=== PATIENT | female | born 1950 | race Caucasian/White ===

== ENCOUNTER 2021-12-14 18:02 | Inpatient (IN) | payer OTHER ==
[~2021-12-14] VITALS: Ht 167.6 cm; Wt 97.5 kg
--- NOTE | 2021-12-14 18:02 | NUR ---
PT BIBRA39 FRM B&C C/O WORSENING SOB X 2 WEEKS. PT IS AAOX4, NOT IN RESPIRATORY DISTRESS, HOOKED TO NUMERICAL CONTROL MACHINE OPERATOR, KEPT RESTED AND COMFORTABLE. WILL CONTINUE TO MONITOR.
--- NOTE | 2021-12-14 18:24 | NUR ---
PT SEEN AND EXAMINED BY .
[2021-12-14] MEDS ORDERED: DILTIAZEM HCL 25 MG IV ONE (18:47)
--- NOTE | 2021-12-14 18:50 | NUR ---
IV LINE ESTABLISHED BLOOD DRAWN AND SENT TO LAB.
[2021-12-14] MEDS ORDERED: IV NS 0.9% 500 ML IV ONE (19:00)
[2021-12-14] MEDS ORDERED: DILTIAZEM HCL 50 MG IV IV ONE (19:00)
--- NOTE | 2021-12-14 19:07 | NUR ---
COVID SPECIMEN COLLECTED AND SENT TO LAB.
[2021-12-14 19:13] LABS: CALCIUM, SERUM 8.4 mg/dL (8.5-10.1); CARBON DIOXIDE 31 mmol/L (21-32); CHLORIDE 104 mmol/L (98-107); CREATININE 1.1 mg/dL (0.6-1.3); GLUCOSE 97 mg/dL (74-106); POTASSIUM 4.2 mmol/L (3.5-5.1); SODIUM SERUM 139 mmol/L (136-145); UREA NITROGEN, BLOOD 16 mg/dL (7-18)
--- NOTE | 2021-12-14 19:17 | NUR ---
CALLED PHARMACY FOR KIMBERLEE FAITH
[2021-12-14 19:20] LABS: ALANINE AMINOTRANSFERASE 12 U/L (12-78); ALKALINE PHOSPHATASE 98 U/L (46-116); ASPARTATE AMINOTRANSFERASE 6 U/L (15-37); BILIRUBIN,DIRECT 0.1 mg/dL (0.0-0.2); BILIRUBIN,TOTAL 0.3 mg/dL (0.2-1.0); TOTAL PROTEIN, SERUM 6.4 g/dL (6.4-8.2)
[2021-12-14] MEDS ORDERED: DILTIAZEM HCL IV 125 MG in IV NS 0.9% 100 ML IV PRN ×2 (19:30→22:00)
--- NOTE | 2021-12-14 20:08 | NUR ---
CALLED [facility] [phone] ASKING FOR MD NAME THAT OKAYED PT STAYING HERE.
--- NOTE | 2021-12-14 20:11 | NUR ---
PT RESTING COMFORTABLY IN BED, ELEVATED HR NOTED AT 117, ON CARDIZEM DRIP 7, INCREASED TO 10 PER PROTOCAL. WILL CONTINUE TO MONITOR HR. PT STATES 0/10 PAIN AT THIS TIME.
--- NOTE | 2021-12-14 20:11 | NUR ---
RECEIVED REPORT FROM JACLYN VELÁZQUEZ FOR JAYJAY
--- NOTE | 2021-12-14 20:13 | NUR ---
[facility] CALLED SURVEILLANCE INSPECTOR PAGED.
[2021-12-14 20:19] LABS: BASOPHILS % (AUTO) 0.5 % (0.0-2.0); EOSINOPHILS % (AUTO) 1.8 % (0.0-6.0); HEMATOCRIT 35 % (33-45); HEMOGLOBIN 11.2 g/dL (11.5-14.8); LYMPHOCYTES # (AUTO) 1.3 K/uL (0.8-4.8); LYMPHOCYTES % (AUTO) 18.8 % (20.0-44.0); MEAN CORPUSCULAR HGB CONC 32 g/dl (31.0-36.0); MEAN CORPUSCULAR VOLUME 94 fL (82-100); MONOCYTES # (AUTO) 0.5 K/uL (0.1-1.30); MONOCYTES % (AUTO) 7.1 % (2.0-12.0); NEUTROPHILS % (AUTO) 71.8 % (43.0-81.0); PLATELET COUNT (AUTO) 263 K/uL (150-450); RED BLOOD CELL COUNT(AUTO) 3.75 MIL/uL (4.0-5.2)
--- NOTE | 2021-12-14 20:22 | NUR ---
FAXED CLINICALS TO [facility] [phone]
--- NOTE | 2021-12-14 20:25 | NUR ---
OPTION 2 DARYN ASKING FOR NAME OF MD IS ANI THAT GAVE AUTH FOR PT TO STAY.
[2021-12-14] MEDS ORDERED: ACETAMINOPHEN 325 MG TABLET PO PRN (20:30)
--- NOTE | 2021-12-14 20:33 | NUR ---
BEDPAN PROVIDED TO PT
--- NOTE | 2021-12-14 20:49 | NUR ---
ULTRASOUND AT BEDSIDE
--- NOTE | 2021-12-14 21:00 | NUR ---
HR NOTED AT 129, INCREASED CARDIZEM TO 15. WILL CONTINUE TO MONITOR
--- NOTE | 2021-12-14 21:10 | NUR ---
room 106
--- NOTE | 2021-12-14 21:11 | NUR ---
ROOM 106
--- NOTE | 2021-12-14 21:23 | NUR ---
35 EF NOTED ON ECHOCARDIOGRAM, WILL NOTIFY HOSPITALIST
--- NOTE | 2021-12-14 21:26 | NUR ---
CALL MADE TO [employer] TO [address] DR ORTIZ
--- NOTE | 2021-12-14 21:28 | NUR ---
HORACIO ORTIZ NP WAS NOTIFIED THAT THE PT'S EJECTION FRACTION RATE IS 35%.
--- NOTE | 2021-12-14 21:55 | NUR ---
ROOM ASSIGNMENT 256 ICU
[2021-12-14] MEDS ORDERED: APIXABAN 5 MG TABLET ONE (22:11)
--- NOTE | 2021-12-14 22:17 | NUR ---
SECOND IV LINE ESTABLISHED , LAC 20G
[2021-12-14] MEDS: APIXABAN 5 MG TABLET PO SCH (22:22)
--- NOTE | 2021-12-14 22:28 | NUR ---
REPORT GIVEN TO GIGI VELÁZQUEZ FOR JAYJAY
[2021-12-14 23:52] VITALS: BP 111/65
[2021-12-14] MEDS ORDERED: METO100T14 PO (23:57)
[2021-12-14] MEDS ORDERED: ALBU18HF2 INH (23:57)
[2021-12-14] MEDS ORDERED: METF-440 PO (23:57)
[2021-12-14] MEDS ORDERED: METH500T6 PO (23:57)
[2021-12-14] MEDS ORDERED: FURO20TA4 PO (23:57)
[2021-12-14] MEDS ORDERED: MOME13HF2 INH (23:57)
[2021-12-14] MEDS ORDERED: LEVO75TA7 PO (23:57)
[2021-12-14] MEDS ORDERED: ARIP5TAB10 PO (23:57)
[2021-12-14] MEDS ORDERED: BUPR100T6 PO (23:57)
[2021-12-14] MEDS ORDERED: ATOR40TA PO (23:57)
[2021-12-14] MEDS ORDERED: TRAZ-257 PO (23:57)
[2021-12-14] MEDS ORDERED: ALPR0.25 PO (23:57)
[2021-12-14] MEDS ORDERED: AMLO2.5T2 PO (23:57)
[2021-12-14] MEDS ORDERED: FLUT16SP BNOSTRILS (23:57)
[2021-12-14] MEDS ORDERED: HYDR-3976 GT (23:57)
[2021-12-14] MEDS ORDERED: SPIR25TA PO (23:57)
[2021-12-14] MEDS ORDERED: BUSP5TAB3 PO (23:57)
[2021-12-14] MEDS ORDERED: baby aspirin PO (23:57)
[2021-12-14] MEDS ORDERED: GLIP2.5T16 PO (23:57)
[2021-12-14] MEDS ORDERED: GABA-532 PO (23:57)
[2021-12-14] MEDS ORDERED: DULO30CA2 PO (23:57)
[2021-12-14] MEDS ORDERED: DIGO125T PO (23:57)
[2021-12-15] VITALS (41 sets, daily range): BP systolic 48–142; BP diastolic 32–106
--- NOTE | 2021-12-15 | NUR ---
FORESTRY FACULTY MEMBER, ADMISSION RECEIVED FROM ER VIA LISA, PT AWAKE, ALERT FOLLOW COMMANDS. TOOTH CUTTER SPUR SHOWING A FIB. OXYGEN 2L VIA NASAL CANNULA, SAT 98%. NO ACUTE DISTRESS NOTED. IV RT AND LT HAND 20G. CARDIZEM 10MG/H.WILL CONTINUE TO MONITOR
[2021-12-15] MEDS ORDERED: APIX5TAB PO (02:46)
[2021-12-15] MEDS ORDERED: HYDROCODONE/APAP 7.5/325MG 1 EACH TABLET PO PRN (03:00)
[2021-12-15] MEDS ORDERED: ALBUTEROL FS 2.5 MG/3 ML VIAL.NEB NEB PRN (03:00)
[2021-12-15] MEDS ORDERED: METHOCARBAMOL (500MG) 500 MG TABLET PO PRN (03:00)
[2021-12-15] MEDS ORDERED: ALPRAZOLAM 0.25 MG TABLET PO PRN (03:00)
[2021-12-15] MEDS ORDERED: ALBUTEROL SULFATE 8 GM HFA.AER.AD IH PRN (03:00)
[2021-12-15] MEDS ORDERED: TRAZODONE 50 MG TABLET PO PRN (03:00)
--- NOTE | 2021-12-15 04:15 | NUR ---
multicut line operator. am care given. remaining same oxygen tolerated well. sat 98%. no acute distress noted, equipment monitor phototypesetting showing a fib. hob elevated, iv rt hand. cardizem 15mg /h
[2021-12-15 05:11] LABS: BASOPHILS # (AUTO) 0.1 K/uL (0.0-0.2); BASOPHILS % (AUTO) 0.9 % (0.0-2.0); EOSINOPHILS % (AUTO) 2.7 % (0.0-6.0); HEMATOCRIT 35 % (33-45); HEMOGLOBIN 11.1 g/dL (11.5-14.8); LYMPHOCYTES # (AUTO) 1.4 K/uL (0.8-4.8); LYMPHOCYTES % (AUTO) 17.2 % (20.0-44.0); MEAN CORPUSCULAR HGB CONC 32 g/dl (31.0-36.0); MEAN CORPUSCULAR VOLUME 93 fL (82-100); MONOCYTES # (AUTO) 0.6 K/uL (0.1-1.30); MONOCYTES % (AUTO) 7.8 % (2.0-12.0); NEUTROPHILS # (AUTO) 5.6 K/uL (1.8-8.9); NEUTROPHILS % (AUTO) 71.4 % (43.0-81.0); PLATELET COUNT (AUTO) 258 K/uL (150-450); WHITE BLOOD COUNT (AUTO) 7.9 K/uL (4.3-11.0)
[2021-12-15] MEDS ORDERED: METO200T49 PO (05:12)
[2021-12-15] MEDS ORDERED: NORCO PO (05:12)
[2021-12-15 05:29] LABS: CALCIUM, SERUM 8.2 mg/dL (8.5-10.1); CREATININE 1.1 mg/dL (0.6-1.3); PHOSPHORUS 4.1 mg/dL (2.5-4.9); POTASSIUM 3.9 mmol/L (3.5-5.1)
[2021-12-15] MEDS ORDERED: FUROSEMIDE 40 MG/4 ML VIAL IV ONE (05:30)
[2021-12-15] MEDS ORDERED: DEXTROSE 50%-WATER 50 ML DISP.SYRIN IV PRN (05:30)
[2021-12-15] MEDS ORDERED: AMIODARONE 150 MG in IV D5W 100 ML IV ONE (06:00)
[2021-12-15] MEDS ORDERED: AMIODARONE 150 MG/3 ML VIAL IV ONE ×2 (06:19→06:20)
--- NOTE | 2021-12-15 06:28 | NUR ---
GOLF CADDY, KIMBERLEE D/C BY HORACIO MILIAN , AND SYLVIA MATHUR
[2021-12-15] MEDS: AMIODARONE 450 MG in IV D5W 241 ML IV PRN ×2 (06:31→18:27)
[2021-12-15] MEDS: LEVOTHYROXINE SODIUM 75 MCG TABLET PO SCH (07:32)
[2021-12-15] MEDS: BLOOD SUGAR DIAGNOSTIC 1 EACH STRIP IN SCH ×4 (07:59→21:08)
--- NOTE | 2021-12-15 08:00 | NUR ---
RN NOTES RECEIVED PATIENT IN THE BED A/O X3/4 ON O2-2LNC, BS-164 MG/DL, TOLERATED BREAKFAST 75 %, DUE MEDICATION ADMINISTERED. HR 121 A-FIB ON BEDSIDE MONITOR , WAS COMPLAINING OF PAIN UPPER SHOULDERS, ANXIOUS. INFUSING AMIODARONE DRIP 1MG/ML USING BEDSIDE COMMODE, CALL LIGHT WITHIN TO REACH, WILL FOLLOW UP.
[2021-12-15] MEDS: APIXABAN 5 MG TABLET PO SCH ×2 (08:45→17:41)
[2021-12-15] MEDS: buPROPion SR 100 MG TABLET.ER PO SCH ×2 (08:46→17:41)
[2021-12-15] MEDS: SPIRONOLACTONE 25 MG TABLET PO SCH (08:46)
[2021-12-15] MEDS: GABAPENTIN 100 MG CAPSULE PO SCH ×2 (08:46→17:40)
[2021-12-15] MEDS: busPIRone 5 MG TABLET PO SCH (08:46)
[2021-12-15] MEDS: ASPIRIN 81 MG TAB.CHEW PO SCH (08:46)
[2021-12-15] MEDS: DULOXETINE HCL 30 MG CAPSULE.DR PO SCH ×2 (08:46→17:40)
[2021-12-15] MEDS: METFORMIN 500 MG TABLET PO SCH ×2 (08:46→17:40)
[2021-12-15] MEDS: glipiZIDE XL 2.5 MG TAB.OSM.24 PO SCH ×3 (08:53→17:40)
[2021-12-15] MEDS: FLUTICASONE PROPIONATE 16 GM BOTTLE NS SCH ×2 (08:53→17:41)
[2021-12-15] MEDS ORDERED: FUROSEMIDE 20 MG TABLET PO SCH (09:00)
[2021-12-15] MEDS ORDERED: glipiZIDE XL 2.5 MG TAB.OSM.24 PO SCH (09:00)
[2021-12-15] MEDS ORDERED: AMLODIPINE BESYLATE 2.5 MG TABLET PO SCH ×2 (09:00)
[2021-12-15] MEDS ORDERED: METOPROLOL TARTRATE 50 MG TABLET PO SCH (09:00)
--- NOTE | 2021-12-15 09:06 | NUR ---
rn notes administered Trufant 5/325 mg/dl for pain upper shoulders 04/02 per patient request. bp-118/70, p119. will follow up.
[2021-12-15] MEDS ORDERED: HYDROCODONE/APAP 5/325MG TABLET PO PRN (09:30)
[2021-12-15] MEDS: METOPROLOL SUCCINATE 50 MG TAB.SR.24H PO SCH (09:35)
--- NOTE | 2021-12-15 10:15 | NUR ---
RN NOTES PATIENT WITH THE PT AT THIS TIME, WALKING IN THE ROOM USING WALKER, WAS COMPLAINING OF ANXIOUS, NO INTEREST WALKING.
[2021-12-15] MEDS: INSULIN REGULAR, HUMAN 100 UNIT/ML 3 ML VIAL SQ PRN ×4 (10:19→21:09)
--- NOTE | 2021-12-15 10:24 | NUR ---
EBER NOTE DAMINISTERED XANAX 0.25 Addendum: 12/15/21 at 1029 by MELODY PACK RN RN NOTES ADMINISTERED XANAX 0.25 MG PO PRN FOR ANXIETY, PER PATIENT REQUEST BP 146/96, P-129.
[2021-12-15] MEDS: methylPREDNISolone SOD SUCC 125 MG/2ML VIAL IV SCH (12:02)
[2021-12-15] MEDS: DIGOXIN 0.125 MG TABLET PO SCH (12:03)
--- NOTE | 2021-12-15 12:06 | NUR ---
rn notes patient anxious, stile anxious, notified hospitalist Petar MILIAN and get TO order for psych evaluation, order taken and carried out. bs-260mg/dl coverage given.
[2021-12-15] MEDS: ONDANSETRON HCL/PF 4 MG/2 ML VIAL IVP PRN ×2 (12:55→18:57)
--- NOTE | 2021-12-15 12:55 | NUR ---
rn notes administered Zofran 4 mg/ml iv push for nausea per patient request.
--- NOTE | 2021-12-15 13:18 | NUR ---
rn note administered Tylenol 650 mg po prn for headache.
[2021-12-15] MEDS: ALBUTEROL FS 2.5 MG/0.5 ML VIAL.NEB NEB SCH ×2 (13:30→19:27)
[2021-12-15] MEDS: IPRATROPIUM NEB FS 0.5 MG/2.5 ML AMPUL.NEB NEB SCH ×2 (13:30→19:27)
[2021-12-15] MEDS: ATORVASTATIN 40 MG TABLET PO SCH (17:40)
--- NOTE | 2021-12-15 18:37 | NUR ---
RN NOTES Seen mill stenciler Dr Hanna new order is continue calcium channel blockers as patient has significant cardiomyopathy. Continue amiodarone drip until the end of protocol. Continue rate control with digoxin, Continue home dose of metoprolol and spironolactone, Lasix 40 mg IV twice daily. Strict I's and O's, Continue current dose of apixaban. bs-226mg/dl, coverage given, pm care done, . call light within to reach, endorsed oncoming nurse follow amrita.
[2021-12-15] MEDS: FUROSEMIDE 40 MG/4 ML VIAL IV SCH (18:57)
--- NOTE | 2021-12-15 18:58 | NUR ---
RN NOTES ADMINISTERED ZOFRAN 4 MG/ML IV PUSH FOR NAUSEA PER PATIENT REQUEST.
[2021-12-15] MEDS: BUDESONIDE RESPULE INH 0.25 MG/2 ML AMPUL.NEB NEB SCH (19:27)
--- NOTE | 2021-12-15 19:50 | NUR ---
RN NOTE RECEIVED PATIENT IN BED, AWAKE, WATCHING TELEVISION. AOX4. ABLE TO MAKE NEEDS KNOWN. BREATHING EVEN WITH MILD SOB. CURRENTLY ON 2L/MIN OXYGEN VIA NASAL CANNULA. TOLERATING WELL, OXYGEN SATURATION OF 94-95 PERCENT. HOB ELEVATED 30 DEGREES. DENIES CHEST PAIN. NO DISTRESS NOTED. DENIES N/V AT THIS TIME. NO COUGH/CONGESTION NOTED. SKIN WARM AND DRY. NOTED WITH RIGHT WRIST 18G. CURRENTLY INFUSING AMIODARONE AT 0.5 MG/MIN. NO INFILTRATION NOTED. BLOOD PRESSURE WNL. NO S/S OF HYPOTENSION. ASSISTED TO THE BEDSIDE COMMODE. NO COMPLAINTS OF DIZZINESS. ALL NEEDS ATTENDED, BED LOW, IN LOCKED POSITION, CALL LIGHT WITHIN REACH.
[2021-12-15] MEDS: ARIPIPRAZOLE 5 MG TABLET PO SCH (21:09)
[2021-12-16] VITALS (27 sets, daily range): BP systolic 78–124; BP diastolic 36–102
[2021-12-16] MEDS: IPRATROPIUM NEB FS 0.5 MG/2.5 ML AMPUL.NEB NEB SCH ×4 (01:16→19:43)
[2021-12-16] MEDS: ALBUTEROL FS 2.5 MG/0.5 ML VIAL.NEB NEB SCH ×2 (01:16→08:28)
[2021-12-16] MEDS: ONDANSETRON HCL/PF 4 MG/2 ML VIAL IVP PRN (04:07)
--- NOTE | 2021-12-16 04:14 | NUR ---
RN NOTE SEEN PATIENT REACHING FOR EMESIS BAG. PATIENT STATES SHE IS FEELING NAUSEOUS. ASSISTED PATIENT WITH REPOSITIONING, PULLED HIGHER UP ON BED, ELEVATED HOB 40 DEGREES. NO EMESIS PRESENT. PROVIDED ICE CHIPS. ADMINISTERED ZOFRAN 4 MG VIA IV ROUTE PER MD ORDER. WILL CONTINUE TO MONITOR, CALL LIGHT WITHIN REACH.
[2021-12-16 05:11] LABS: BASOPHILS % (AUTO) 0.2 % (0.0-2.0); HEMATOCRIT 39 % (33-45); HEMOGLOBIN 12.2 g/dL (11.5-14.8); LYMPHOCYTES # (AUTO) 0.6 K/uL (0.8-4.8); LYMPHOCYTES % (AUTO) 6.2 % (20.0-44.0); MEAN CORPUSCULAR HGB CONC 32 g/dl (31.0-36.0); MEAN CORPUSCULAR VOLUME 94 fL (82-100); MONOCYTES # (AUTO) 0.4 K/uL (0.1-1.30); MONOCYTES % (AUTO) 4.2 % (2.0-12.0); NEUTROPHILS # (AUTO) 8.7 K/uL (1.8-8.9); NEUTROPHILS % (AUTO) 89.4 % (43.0-81.0); PLATELET COUNT (AUTO) 336 K/uL (150-450); WHITE BLOOD COUNT (AUTO) 9.7 K/uL (4.3-11.0)
[2021-12-16 05:30] LABS: CALCIUM, SERUM 9.1 mg/dL (8.5-10.1); CARBON DIOXIDE 30 mmol/L (21-32); CHLORIDE 101 mmol/L (98-107); CREATININE 2.1 mg/dL (0.6-1.3); GLUCOSE 176 mg/dL (74-106); POTASSIUM 5.8 mmol/L (3.5-5.1); SODIUM SERUM 136 mmol/L (136-145); UREA NITROGEN, BLOOD 30 mg/dL (7-18)
[2021-12-16] MEDS: LEVOTHYROXINE SODIUM 75 MCG TABLET PO SCH (06:02)
--- NOTE | 2021-12-16 07:05 | NUR ---
RN NOTES RECEIVED PT IN BED, AWAKE. A/OX4. ABLE TO MAKE NEEDS KNOWN. ON 3L OXYGEN VIA NASAL CANNULA. TOLERATING WELL, OXYGEN SATURATION @96%. HOB ELEVATED. DENIES ANY PAIN. R WRIST #18 INTACT, PATENT AND FLUSHED.SAFETY MEASURES IN PLACE. CALL LIGHT WITHIN REACH. BED LOCKED AND IN LOWEST POSITION WITH SIDE RAILS UP X2. WILL CONTINUE TO MONITOR.
[2021-12-16] MEDS: BLOOD SUGAR DIAGNOSTIC 1 EACH STRIP IN SCH ×4 (07:38→21:09)
[2021-12-16 08:27] LABS: ABG BASE EXCESS -2.4 mmol/L; ABG OXYGEN SATURATION 92.5 % (92.0-98.5); ABG PCO2 55.8 mmHg (35.0-45.0); ABG PH 7.273 (7.350-7.450); ABG PO2 71.4 mmHg (75.0-100.0); AaDO2 91.5 mmHg; COHb 0.5 % (0.5-1.5); MetHb 0.1 % (0.0-1.5); O2Hb 91.9 % (94.0-97.0); SITE, ABG Left Radial; VENT MODE, BG 3 LPM NC
[2021-12-16] MEDS: BUDESONIDE RESPULE INH 0.25 MG/2 ML AMPUL.NEB NEB SCH ×2 (08:28→19:43)
[2021-12-16] MEDS: ASPIRIN 81 MG TAB.CHEW PO SCH (08:33)
[2021-12-16] MEDS: buPROPion SR 100 MG TABLET.ER PO SCH (08:33)
[2021-12-16] MEDS: METFORMIN 500 MG TABLET PO SCH (08:33)
[2021-12-16] MEDS: methylPREDNISolone SOD SUCC 125 MG/2ML VIAL IV SCH (08:33)
[2021-12-16] MEDS: SPIRONOLACTONE 25 MG TABLET PO SCH (08:33)
[2021-12-16] MEDS: glipiZIDE XL 2.5 MG TAB.OSM.24 PO SCH (08:34)
[2021-12-16] MEDS: DULOXETINE HCL 30 MG CAPSULE.DR PO SCH ×2 (08:34→16:51)
[2021-12-16] MEDS: busPIRone 5 MG TABLET PO SCH (08:34)
[2021-12-16] MEDS: GABAPENTIN 100 MG CAPSULE PO SCH ×2 (08:34→16:51)
[2021-12-16] MEDS: FUROSEMIDE 40 MG/4 ML VIAL IV SCH ×2 (08:35→16:51)
[2021-12-16] MEDS: APIXABAN 5 MG TABLET PO SCH ×2 (08:35→16:57)
[2021-12-16] MEDS: FLUTICASONE PROPIONATE 16 GM BOTTLE NS SCH ×2 (08:42→16:58)
[2021-12-16] MEDS: METOPROLOL SUCCINATE 50 MG TAB.SR.24H PO SCH (08:43)
[2021-12-16] MEDS: INSULIN REGULAR, HUMAN 100 UNIT/ML 3 ML VIAL SQ PRN ×4 (08:49→21:11)
[2021-12-16] MEDS ORDERED: SODIUM POLYSTYRENE SULFONATE 15 G/60 ML BOTTLE PO ONE ×2 (11:30)
[2021-12-16] MEDS: DIGOXIN 0.125 MG TABLET PO SCH (12:23)
[2021-12-16] MEDS ORDERED: MILRINONE LACTATE 20 MG in IV D5W 100 ML IV SCH (14:30)
[2021-12-16] MEDS ORDERED: DoBUTamine 500 MG/250 ML PIGGYBACK IV PRN (15:00)
[2021-12-16] MEDS: IV NS 0.9% 1,000 ML IV SCH ×2 (16:00→16:40)
[2021-12-16] MEDS: DOBUTamine 500 MG in IV D5W 210 ML IV PRN (17:12)
[2021-12-16] MEDS: ATORVASTATIN 40 MG TABLET PO SCH (18:05)
--- NOTE | 2021-12-16 19:44 | NUR ---
RN NOTE RECEIVED PATIENT IN BED, SLEEPING, AROUSABLE TO NAME AND TOUCH. AOX4. RECEIVED WITH BIPAP. SETTINGS OF IPAP 15/EPAP 5, AC 14, FIO2 30%, TOLERATING WELL WITH OXYGEN SATURATION OF 97 PERCENT. HOB ELEVATED 40 DEGREES. NO DISTRESS NOTED. DENIES CHEST PAIN. DENIES N/V. SKIN WARM AND DRY. NOTED WITH RIGHT UPPER ARM MIDLINE. CURRENTLY INFUSING DOBUTAMINE 5 MCG/KG/MIN. PER MD CHUN, NO TITRATION. BED SIDE COMMODE AT BED SIDE. ALL NEEDS ATTENDED. BED LOW, IN LOCKED POSITION, CALL LIGHT WITHIN REACH.
[2021-12-16 20:56] LABS: BILIRUBIN,URINE NEGATIVE (NEGATIVE); COLOR,URINE YELLOW (YELLOW); LEUKOCYTE ESTERASE ,URINE NEGATIVE (NEGATIVE); NITRITE, URINE NEGATIVE (NEGATIVE); PH,URINE 5.5 (5.0-8.0); PROTEIN,URINE NEGATIVE (NEGATIVE); UGLUCOSE NEGATIVE (NEGATIVE); UROBILINOGEN,URINE 0.2 EU/dL (0.2)
[2021-12-16] MEDS: TRAZODONE 50 MG TABLET PO SCH (21:08)
[2021-12-16] MEDS: METOPROLOL TARTRATE 50 MG TABLET PO SCH (21:08)
[2021-12-16] MEDS: ARIPIPRAZOLE 5 MG TABLET PO SCH (21:08)
--- NOTE | 2021-12-16 23:31 | NUR ---
RN NOTE PER DIANA SOTO, D/C IVF NS AT 100 CC/HR.
[2021-12-17] VITALS (55 sets, daily range): BP systolic 90–151; BP diastolic 36–103
[2021-12-17] MEDS: IPRATROPIUM NEB FS 0.5 MG/2.5 ML AMPUL.NEB NEB SCH ×4 (01:13→19:30)
[2021-12-17] MEDS: LEVOTHYROXINE SODIUM 75 MCG TABLET PO SCH (06:49)
--- NOTE | 2021-12-17 07:10 | NUR ---
RN NOTES RECEIVED PT IN BED, AWAKE. A/OX4. ABLE TO MAKE NEEDS KNOWN. ON BIPAP. TOLERATING WELL, OXYGEN SATURATION @97%. HOB ELEVATED. DENIES ANY PAIN. CARON MIDLINE INTACT, PATENT AND FLUSHED. DOBUTAMINE @5MCG, NO TITRATION PER MD. SAFETY MEASURES IN PLACE. CALL LIGHT WITHIN REACH. BED LOCKED AND IN LOWEST POSITION WITH SIDE RAILS UP X2. WILL CONTINUE TO MONITOR.
[2021-12-17 07:19] LABS: CHLORIDE 100 mmol/L (98-107); CREATININE 1.5 mg/dL (0.6-1.3); GLUCOSE 155 mg/dL (74-106); POTASSIUM 3.7 mmol/L (3.5-5.1); SODIUM SERUM 140 mmol/L (136-145); UREA NITROGEN, BLOOD 34 mg/dL (7-18)
[2021-12-17] MEDS: BUDESONIDE RESPULE INH 0.25 MG/2 ML AMPUL.NEB NEB SCH ×2 (07:30→19:30)
[2021-12-17] MEDS: BLOOD SUGAR DIAGNOSTIC 1 EACH STRIP IN SCH ×4 (07:43→21:09)
[2021-12-17] MEDS: INSULIN REGULAR, HUMAN 100 UNIT/ML 3 ML VIAL SQ PRN ×4 (07:43→21:11)
--- NOTE | 2021-12-17 08:00 | NUR ---
PT PLACED OFF BIPAP ON TO N/C. AWAKE AND JACOB VELÁZQUEZ AWARE.
[2021-12-17 08:40] LABS: CARBON DIOXIDE 31 mmol/L (21-32)
[2021-12-17] MEDS: methylPREDNISolone SOD SUCC 125 MG/2ML VIAL IV SCH (08:40)
[2021-12-17] MEDS: FUROSEMIDE 40 MG/4 ML VIAL IV SCH ×2 (08:40→16:37)
[2021-12-17] MEDS: busPIRone 5 MG TABLET PO SCH (08:40)
[2021-12-17] MEDS: ASPIRIN 81 MG TAB.CHEW PO SCH (08:40)
[2021-12-17] MEDS: DULOXETINE HCL 30 MG CAPSULE.DR PO SCH ×2 (08:41→16:37)
[2021-12-17] MEDS: GABAPENTIN 100 MG CAPSULE PO SCH ×2 (08:41→16:37)
[2021-12-17] MEDS: APIXABAN 5 MG TABLET PO SCH ×2 (08:42→16:39)
[2021-12-17] MEDS: METOPROLOL TARTRATE 50 MG TABLET PO SCH ×2 (08:47→20:54)
[2021-12-17] MEDS: FLUTICASONE PROPIONATE 16 GM BOTTLE NS SCH ×2 (08:47→16:38)
[2021-12-17] MEDS: DOBUTamine 500 MG in IV D5W 210 ML IV PRN ×2 (08:52→23:03)
[2021-12-17 10:18] LABS: CALCIUM, SERUM 8.9 mg/dL (8.5-10.1)
[2021-12-17] MEDS: DIGOXIN 0.125 MG TABLET PO SCH (14:13)
[2021-12-17] MEDS: ATORVASTATIN 40 MG TABLET PO SCH (18:18)
--- NOTE | 2021-12-17 19:18 | NUR ---
RN NOTES NO SIGNIFICANT CHANGES THROUGHOUT THE SHIFT. ON 2L O2 VIA NC. NO SOB OR ANY DISTRESS. DENIES PAIN. ALL DUE MEDS GIVEN. NEEDS ATTENDED. KEPT CLEAN AND COMFORTABLE. SAFETY MEASURES IN PLACE. ENDORSED TO NIGHT RN FOR JAYJAY.
--- NOTE | 2021-12-17 19:41 | NUR ---
RN NOTE RECEIVED PATIENT IN BED, SLEEPING, EASILY AROUSABLE TO NAME AND TOUCH. A0X4. ABLE TO MAKE NEEDS KNOWN. BREATHING NOTED WITH MILD SOB. NO SIGNIFICANT DISTRESS. HOB ELEVATED HIGH FOWLERS. CURRENTLY ON 2L/MIN VIA NASAL CANNULA. TOLERATING WELL WITH O2 SATURATION OF 95 PERCENT. ON TELE MONITORING, A.FIB WITH ELEVATED HEART RATE. PATIENT DENIES FEELINGS OF SYNCOPE/LIGHTHEADEDNESS. DENIES CHEST PAIN & N/V. SKIN WARM AND DRY. RIGHT UPPER ARM MIDLINE INTACT, CURRENTLY INFUSING DOBUTAMINE 5 MCG/KG/MIN. NO BLEEDING. BEDSIDE COMMODE PRESENT. REMINDED PATIENT TO USE CALL LIGHT WHEN ASSISTANCE IS NEEDED. BED LOW IN LOCKED, POSITION, CALL LIGHT WITHIN REACH.
--- NOTE | 2021-12-17 19:47 | NUR ---
RT NOTE TX NOT GIVEN DUE TO HIGH HR @ 160-170 BPM. RN JORDAN NOTIFIED AND IS AWARE. SPO2 @ 97%. WILL CONTINUE TO MONITOR.
[2021-12-17] MEDS: ARIPIPRAZOLE 5 MG TABLET PO SCH (21:09)
[2021-12-17] MEDS: TRAZODONE 50 MG TABLET PO SCH (21:09)
--- NOTE | 2021-12-17 22:00 | NUR ---
RN NOTE PATIENT PLACED ON BIPAP. TOLERATING WELL, O2 SATURATION OF 96-97 PERCENT.
[2021-12-18] VITALS (35 sets, daily range): BP systolic 73–175; BP diastolic 43–123
[2021-12-18] MEDS: IPRATROPIUM NEB FS 0.5 MG/2.5 ML AMPUL.NEB NEB SCH ×4 (01:30→19:49)
--- NOTE | 2021-12-18 05:39 | NUR ---
RT NOTE PT TOLERATED NOC BIPAP WELL WITH NO COMPLICATIONS. NO RESPIRATORY DISTRESS NOTED. HIGH HR NOTED T/O SHIFT. EBER RYAN.
--- NOTE | 2021-12-18 06:00 | NUR ---
RN NOTE NO SIGNIFICANT CHANGES. PATIENT PLACED BACK TO 2L/MIN VIA NASAL CANNULA. TOLERATING WELL 100 PERCENT SATURATION. PULSE RATE STILL ELEVATED ABOVE 100 BPM. SLEPT WELL THROUGH THE NIGHT. NO COMPLAINTS OF PAIN, LIGHTHEADEDNESS, N/V. ONE EPISODE OF URINE INCONTINENCE. PATIENT KEPT CLEAN AND DRY. ALL NEEDS ATTENDED. CALL LIGHT WITHIN REACH.
[2021-12-18] MEDS: LEVOTHYROXINE SODIUM 75 MCG TABLET PO SCH (06:22)
[2021-12-18] MEDS: BUDESONIDE RESPULE INH 0.25 MG/2 ML AMPUL.NEB NEB SCH ×2 (06:57→19:30)
[2021-12-18 07:23] LABS: CALCIUM, SERUM 8.6 mg/dL (8.5-10.1); CREATININE 1.2 mg/dL (0.6-1.3); POTASSIUM 3.7 mmol/L (3.5-5.1)
[2021-12-18] MEDS: BLOOD SUGAR DIAGNOSTIC 1 EACH STRIP IN SCH ×4 (07:51→21:18)
--- NOTE | 2021-12-18 08:00 | NUR ---
rn notes RECEIVED PT IN THE BED, A/A/OX4.ON O2-2LNC, NO ACUTE RESPIRATORY DISTRESS, DENIES ANY PAIN.ONBEDESIDE MONITOR SHOWS HR-146,A-FIB, CARON MIDLINE INTACT, PATENT AND FLUSHED WELL,. DOBUTAMINE @ 5MG, NO TITRATION PER MD. SAFETY MEASURES IN PLACE.BS-121 MG/DL, DUE MEDICATION ADMINISTERED, TOLERATED BREAKFAST WELL SELF. CALL LIGHT WITHIN REACH. PATIENT ASSIST TURN AND REPOSTION Q 2 HR, USING BEDSIDE COMMODE. BED LOCKED AND IN LOWEST POSITION WITH SIDE RAILS UP X2. CALL LIGHT WITHIN TO REACH. WILL CONTINUE TO MONITOR.
[2021-12-18] MEDS: FUROSEMIDE 40 MG/4 ML VIAL IV SCH ×2 (09:20→17:26)
[2021-12-18] MEDS: methylPREDNISolone SOD SUCC 125 MG/2ML VIAL IV SCH (09:21)
[2021-12-18] MEDS: METOPROLOL TARTRATE 50 MG TABLET PO SCH ×2 (09:23→21:18)
[2021-12-18] MEDS: GABAPENTIN 100 MG CAPSULE PO SCH ×2 (09:23→17:26)
[2021-12-18] MEDS: ASPIRIN 81 MG TAB.CHEW PO SCH (09:23)
[2021-12-18] MEDS: busPIRone 5 MG TABLET PO SCH (09:23)
[2021-12-18] MEDS: DULOXETINE HCL 30 MG CAPSULE.DR PO SCH ×2 (09:23→17:28)
[2021-12-18] MEDS: FLUTICASONE PROPIONATE 16 GM BOTTLE NS SCH ×2 (09:24→17:28)
[2021-12-18] MEDS: APIXABAN 5 MG TABLET PO SCH ×2 (09:28→17:27)
[2021-12-18] MEDS: INSULIN REGULAR, HUMAN 100 UNIT/ML 3 ML VIAL SQ PRN ×3 (11:21→21:21)
--- NOTE | 2021-12-18 12:36 | NUR ---
RN NOTES BS-196 MG/DL COVERAGE GIVEN, DUE MEDICATION ADMINISTERED, PATIENT USING BEDSIDE COMMODE, ASSIST TURN AND REPOSTION Q 2 HR. WILL FOLLOW UP.
[2021-12-18] MEDS: DIGOXIN 0.125 MG TABLET PO SCH (13:43)
[2021-12-18] MEDS: DOBUTamine 500 MG in IV D5W 210 ML IV PRN (13:48)
[2021-12-18] MEDS: ATORVASTATIN 40 MG TABLET PO SCH (17:29)
--- NOTE | 2021-12-18 19:00 | NUR ---
rn notes transferred patient at this time to [facility] unit room 106 on stable condition. Patient a/o X3, no acute respiratory distress, v/s stable, refused pain.belonging with the patient. Bedside report given storage battery charger Soon follow plan of care.
--- NOTE | 2021-12-18 19:20 | NUR ---
RECEIVED PT IN THE BED, A/A/OX4, ON O2-2LNC,NO SOB/ ACUTE DISTRESS NOTED, ABLE FOLLOW DIRECTIONS AND VERBALIZE NEEDS AND CONCERNS, A-FIB IN TELE MONITOR FLUCTUATING 90-120S, CARON MIDLINE PATENT AND INTACT, BED LOCKED AND IN LOWEST POSITION WITH SIDE RAILS UP X2, CALL LIGHT WITHIN TO REACH, WILL CONTINUE TO MONITOR TO MONITOR CLOSELY.
--- NOTE | 2021-12-18 19:46 | NUR ---
RT NOTE PT IS AWAKE AND ALERT. PATIENT IS COMFORTABLE ON NASAL CANNULA 2LPM. NO SIGNS OF RESPIRATORY DISTRESS NOTED. BIPAP AT PATIENT BEDSIDE. WILL CONTINUE TO MONITOR.
[2021-12-18] MEDS: ARIPIPRAZOLE 5 MG TABLET PO SCH (21:06)
[2021-12-18] MEDS: TRAZODONE 50 MG TABLET PO SCH (21:06)
--- NOTE | 2021-12-18 23:36 | NUR ---
RT NOTE PT AWAKE AND ALERT AT THIS TIME. PATIENT REFUSING TO USE THE BIPAP AT THIS TIME. EXPLAINED TO PATIENT THE USES AND BENEFITS FROM USING THE BIPAP BUT PATIENT STILL VERBALLY REFUSING. PRIMARY NURSE NOTIFIED AND AWARE.
[2021-12-19] VITALS: BP 100/55
[2021-12-19] MEDS: IPRATROPIUM NEB FS 0.5 MG/2.5 ML AMPUL.NEB NEB SCH ×4 (01:57→20:08)
[2021-12-19 04:00] VITALS: BP 102/66
[2021-12-19 07:17] LABS: CALCIUM, SERUM 8.9 mg/dL (8.5-10.1); POTASSIUM 3.7 mmol/L (3.5-5.1)
--- NOTE | 2021-12-19 07:25 | NUR ---
RN NOTES, CONT ON MECHANICAL VENTILATOR, BREATHING EVEN AND UNLABORED, NO SOB NOTED,NO SIGNIFICANT CHANGE IN CONDITION DURING THE NIGHT, REFUSED BIPAP AT NIGHT, SAFETY PRECAUTIONS IN PLACE, BED IN LOW POSITION AND LOCKED, RAILS UP X2, CALL LIGHT WITHIN REACH. ENDORSED TO MICHELL VELÁZQUEZ FOR JAYJAY.
[2021-12-19] MEDS: BUDESONIDE RESPULE INH 0.25 MG/2 ML AMPUL.NEB NEB SCH ×2 (07:30→20:08)
[2021-12-19] MEDS: BLOOD SUGAR DIAGNOSTIC 1 EACH STRIP IN SCH ×4 (07:45→22:08)
--- NOTE | 2021-12-19 07:47 | NUR ---
MS RN OPENING NOTES RECEIVED PATIENT IN BED, AWAKE, A/O X4. PATIENT ON ROOM AIR AT THIS TIME WITH O2 AT 2 LPM FOR COMFORT. BREATHING EVEN AND UNLABORED. NO SOB NOTED. NO COMPLAINS OF PAIN. TELE MONITOR WITH A CURRENT READING OF A-FIB 91. SAFETY PRECAUTIONS IN PLACE; BED IN LOW POSITION AND LOCKED, RAILS UP X2, CALL LIGHT WITHIN REACH. WILL CONTINUE TO MONITOR PATIENT.
[2021-12-19] MEDS: GABAPENTIN 100 MG CAPSULE PO SCH ×2 (08:09→17:35)
[2021-12-19] MEDS: ASPIRIN 81 MG TAB.CHEW PO SCH (08:09)
[2021-12-19] MEDS: LEVOTHYROXINE SODIUM 75 MCG TABLET PO SCH (08:09)
[2021-12-19] MEDS: DULOXETINE HCL 30 MG CAPSULE.DR PO SCH ×2 (08:10→17:35)
[2021-12-19] MEDS: busPIRone 5 MG TABLET PO SCH (08:10)
[2021-12-19] MEDS: methylPREDNISolone SOD SUCC 125 MG/2ML VIAL IV SCH (08:10)
[2021-12-19] MEDS: LOSARTAN POTASSIUM 25 MG TABLET PO SCH (08:10)
[2021-12-19] MEDS: METOPROLOL TARTRATE 50 MG TABLET PO SCH ×2 (08:11→21:07)
[2021-12-19] MEDS: FLUTICASONE PROPIONATE 16 GM BOTTLE NS SCH ×2 (08:12→17:36)
[2021-12-19] MEDS: FUROSEMIDE 40 MG/4 ML VIAL IV SCH (08:12)
[2021-12-19] MEDS: APIXABAN 5 MG TABLET PO SCH ×2 (08:12→17:40)
--- NOTE | 2021-12-19 08:19 | NUR ---
CONFLICT RESOLUTION PROFESSIONAL NOTES PATIENT WITH BP 100/57 HR 100 PER MD HOLD LASIX BUT OK TO GIVE OTHER BP MEDS (METOPROLOL 100 MG AND COZAAR 25 MG)
[2021-12-19 09:46] VITALS: BP 100/57
[2021-12-19] MEDS: DIGOXIN 0.125 MG TABLET PO SCH (12:08)
[2021-12-19 12:16] VITALS: BP 98/64
[2021-12-19 16:39] VITALS: BP 115/63
[2021-12-19] MEDS: INSULIN REGULAR, HUMAN 100 UNIT/ML 3 ML VIAL SQ PRN ×2 (18:09→22:11)
[2021-12-19] MEDS: ATORVASTATIN 40 MG TABLET PO SCH (18:11)
--- NOTE | 2021-12-19 18:50 | NUR ---
MS RN CLOSING NOTES PATIENT REMAINS IN BED, ASLEEP. PATIENT ON ROOM AIR AT THIS TIME WITH O2 AT 2 LPM FOR COMFORT. BREATHING EVEN AND UNLABORED. NO SOB NOTED. NO COMPLAINS OF PAIN DURING SHIFT. TELE MONITOR WITH A CURRENT READING OF A-FIB 105. ALL NEEDS ATTENDED DURING THE DAY. SAFETY PRECAUTIONS IN PLACE; BED IN LOW POSITION AND LOCKED, RAILS UP X2, CALL LIGHT WITHIN REACH. WILL ENDORSE TO PROFILING MACHINE SET UP OPERATOR TOOL NURSE FOR JAYJAY.
--- NOTE | 2021-12-19 19:10 | NUR ---
MS RN OPENING NOTES PATIENT IN BED, ASLEEP. PATIENT WITH O2 AT 2 LPM FOR COMFORT. BREATHING EVEN AND UNLABORED. NO SOB NOTED. NO COMPLAINS OF PAIN AT THIS TIME TELE MONITOR WITH A CURRENT READING OF A-FIB 105. ALL NEEDS ATTENDED AT THIS TIME. SAFETY PRECAUTIONS IN PLACE; BED IN LOW POSITION AND LOCKED, RAILS UP X2, CALL LIGHT WITHIN REACH. WILL CONTINUE TO MONITOR.
[2021-12-19 20:00] VITALS: BP 112/67
[2021-12-19] MEDS: TRAZODONE 50 MG TABLET PO SCH (21:08)
[2021-12-19] MEDS: ARIPIPRAZOLE 5 MG TABLET PO SCH (21:08)
--- NOTE | 2021-12-19 22:10 | NUR ---
RT NOTE PT REFUSED NOC BIPAP. ANDREW 2LNC WELL. NO RESP DISTRESS NOTED @ THIS TIME.
[2021-12-20 00:08] VITALS: BP 107/52
[2021-12-20] MEDS: IPRATROPIUM NEB FS 0.5 MG/2.5 ML AMPUL.NEB NEB SCH ×4 (01:30→19:57)
[2021-12-20 04:39] VITALS: BP 100/59
--- NOTE | 2021-12-20 06:40 | NUR ---
MS RN CLOSING NOTES PATIENT IN BED, ASLEEP. PATIENT WITH O2 AT 2 LPM FOR COMFORT. BREATHING EVEN AND UNLABORED. NO SOB NOTED. NO COMPLAINS OF PAIN AT THIS TIME TELE MONITOR WITH A CURRENT READING OF A-FIB 100S. ALL NEEDS ATTENDED AT ALL TIMES. SAFETY PRECAUTIONS IN PLACE; BED IN LOW POSITION AND LOCKED, RAILS UP X2, CALL LIGHT WITHIN REACH. WILL ENDORSE CARE TO DAY SHIFT NURSE.
[2021-12-20] MEDS: LEVOTHYROXINE SODIUM 75 MCG TABLET PO SCH (07:32)
[2021-12-20] MEDS: BLOOD SUGAR DIAGNOSTIC 1 EACH STRIP IN SCH ×4 (07:32→22:33)
--- NOTE | 2021-12-20 07:43 | NUR ---
0700 Patient endorsed by outgoing nurse for continuity of care. Received patient in bed licked at lowest position with upper side rails raised and call light within reach. Patient A&OX3, Patient is verbalized and speak clearly. No sign of SOB or distress noted; breathing is even and unlabored, on ventilator. A-fib with RUR ( rapid ventricular response) rhythm. Patient has right forearm # 22 jm IV. Non Ambulatory. incontinent GI bowel sound present in all quadrants, soft not distended. supra pubic cath. Encouraged call light use and reinforced unit policies. Will Continue to monitor. Addendum: 12/20/21 at 0754 by MARY FARMER RN No supra pubic cat. incontinent.
[2021-12-20 08:00] VITALS: BP 101/64
[2021-12-20] MEDS: BUDESONIDE RESPULE INH 0.25 MG/2 ML AMPUL.NEB NEB SCH ×2 (08:12→19:56)
[2021-12-20] MEDS: METOPROLOL TARTRATE 50 MG TABLET PO SCH (08:34)
[2021-12-20] MEDS: LOSARTAN POTASSIUM 25 MG TABLET PO SCH (08:34)
[2021-12-20] MEDS: ASPIRIN 81 MG TAB.CHEW PO SCH (08:36)
[2021-12-20] MEDS: busPIRone 5 MG TABLET PO SCH (08:36)
[2021-12-20] MEDS: DULOXETINE HCL 30 MG CAPSULE.DR PO SCH ×2 (08:36→18:25)
[2021-12-20] MEDS: GABAPENTIN 100 MG CAPSULE PO SCH ×2 (08:38→18:20)
[2021-12-20] MEDS: methylPREDNISolone SOD SUCC 125 MG/2ML VIAL IV SCH (08:39)
[2021-12-20] MEDS: APIXABAN 5 MG TABLET PO SCH ×2 (08:43→18:20)
[2021-12-20 08:48] LABS: ABG BASE EXCESS 10.1 mmol/L; ABG OXYGEN SATURATION 96.1 % (92.0-98.5); ABG PCO2 61.9 mmHg (35.0-45.0); ABG PH 7.397 (7.350-7.450); ABG PO2 83.7 mmHg (75.0-100.0); AaDO2 42.9 mmHg; COHb 0.7 % (0.5-1.5); MetHb 0.1 % (0.0-1.5); O2Hb 95.3 % (94.0-97.0); SITE, ABG Left Radial; VENT MODE, BG nasal cannula
[2021-12-20 09:21] LABS: CREATININE 0.9 mg/dL (0.6-1.3); POTASSIUM 3.5 mmol/L (3.5-5.1)
[2021-12-20] MEDS: FLUTICASONE PROPIONATE 16 GM BOTTLE NS SCH ×2 (09:57→18:20)
--- NOTE | 2021-12-20 11:04 | NUR ---
Patient Blood Pressure was 101/64 HR 91 @ 0800 and there was due meds for 0900 and I should give Metoprolol 100mg and Losartan 25mg per MD order. I hold Losartan and messaged Dr. Hanna for if I need to hold Losartan and Dr. Hanna replied Hold Losartan.
[2021-12-20] MEDS: INSULIN REGULAR, HUMAN 100 UNIT/ML 3 ML VIAL SQ PRN ×3 (11:25→22:34)
[2021-12-20 12:00] VITALS: BP 97/62
[2021-12-20] MEDS: DIGOXIN 0.125 MG TABLET PO SCH (13:29)
--- NOTE | 2021-12-20 15:21 | NUR ---
RN NOTE PATIENT REMAINED STABLE THROUGHOUT SHIFT. PATIENT IN BED RESTING PATIENT WITH O2 AT 1 LPM VIA NC TOLERATING WELL AT 95%SPO2. BREATHING EVEN AND UNLABORED. NO SOB NOTED. NO COMPLAINS OF PAIN AT THIS TIME TELE MONITOR WITH A CURRENT READING OF A-FIB 100S. ALL NEEDS ATTENDED AT ALL TIMES. ALL SAFETY MEASURES NOTED. BED IN LOWEST POSITION AND WHEELS LOCKED IN PLACE. CALL LIGHT WITHIN REACH. PATIENT CARE TRANSFERRED TO BELGICA VELÁZQUEZ FOR JAYJAY.
[2021-12-20 16:00] VITALS: BP 105/48
[2021-12-20] MEDS: ATORVASTATIN 40 MG TABLET PO SCH (18:20)
--- NOTE | 2021-12-20 19:25 | NUR ---
RN CLOSING NOTE PATIENT IN BED RESTING AWAKE, A/OX3, NO S/S OF PAIN NOTED AT THIS TIME. ON 1L OXYGEN VIA NC, NO DISTRESS OR SHORTNESS OF BREATH NOTED. IV ACCESS RFA 322G, INTACT, PATENT AND FLUSHING WELL. PATIENT ON EXTERNAL SQUARING SHEAR OPERATOR WITH CURRENT READING OF A-FIB AND HR OF 100 - 126, NO CARDIAC DISTRESS NOTED. FALL AND SAFETY MEASURES IN PLACE, BED ALARM ON. BED IN LOW AND LOCK POSITION, CALL LIGHT AND TABLE WITHIN EASY REACH, SIDE RAILS UP X2. WILL ENDORSE TO TELETYPE OR VARITYPE KEYBOARD OPERATOR.
--- NOTE | 2021-12-20 19:55 | NUR ---
RN NOTE PATIENT ALERT AND ORIENTED X3. CURRENTLY ON NOC BIPAP, TOLERATING WELL. NO SOB NOTED. DENIES ANY PAIN. ON TELE MONITOR, HR 100-120'S. IV ACCESS ON RIGHT FA #22 PATENT AND INTACT. BED LOCKED AND IN LOWEST POSITION. CALL LIGHT WITHIN REACH. ALL NEEDS ANTICIPATED.
[2021-12-20 20:00] VITALS: BP 113/56
[2021-12-20] MEDS: METOPROLOL SUCCINATE 50 MG TAB.SR.24H PO SCH (20:05)
[2021-12-20] MEDS: ARIPIPRAZOLE 5 MG TABLET PO SCH (22:32)
[2021-12-20] MEDS: TRAZODONE 50 MG TABLET PO SCH (22:33)
[2021-12-21] VITALS: BP 107/54
[2021-12-21 04:00] VITALS: BP 105/57
[2021-12-21] MEDS: IPRATROPIUM NEB FS 0.5 MG/2.5 ML AMPUL.NEB NEB SCH ×4 (04:33→20:04)
[2021-12-21] MEDS: LEVOTHYROXINE SODIUM 75 MCG TABLET PO SCH (06:21)
--- NOTE | 2021-12-21 07:12 | NUR ---
RN NOTE PATIENT ALERT AND ORIENTED X3. ON O2 1L VIA NASAL CANNULA. NO SOB NOTED. IV ACCESS ON RIGHT FA #22 PATENT AND INTACT. ALL DUE MEDS GIVEN ORDERED. NO SIGNIFICANT CHANGES DURING THIS SHIFT. BED LOCKED AND IN LOWEST POSITION. CALL LIGHT WITHIN REACH. WILL ENDORSE TO AM SHIFT.
[2021-12-21 08:00] VITALS: BP 98/62
[2021-12-21 08:01] LABS: CALCIUM, SERUM 8.9 mg/dL (8.5-10.1); CREATININE 0.9 mg/dL (0.6-1.3); MAGNESIUM 2.2 mg/dL (1.8-2.4); PHOSPHORUS 3.2 mg/dL (2.5-4.9); POTASSIUM 3.6 mmol/L (3.5-5.1)
--- NOTE | 2021-12-21 08:10 | NUR ---
RN OPENING NOTE PATIENT RECEIVED IN BED, AO X 3, ABLE TO RESPONDS PHYSICAL STIMULI. IN NO ACUTE DISTRESS NOTED. RESPIRATORY EVEN AND UNLABORED ON OXYGEN AT 1Ls. SKIN IS WARM TO TOUCH, KEEP CLEAN/DRY, INTACT IV SITE. KEPT ELEVATED HOB FOR ENSURE AIRWAY AND ASPIRATION PRECAUTION, ALSO LOWEST POSITION OF THE BED, S/R UP X 3 FOR SAFETY. ALL SAFETY PRECAUTION APPLIED. CALL LIGHT WITHIN REACH, WILL CONTINUE TO MONITOR.
[2021-12-21] MEDS: BUDESONIDE RESPULE INH 0.25 MG/2 ML AMPUL.NEB NEB SCH ×2 (08:20→20:09)
[2021-12-21] MEDS: LOSARTAN POTASSIUM 25 MG TABLET PO SCH (09:00)
[2021-12-21] MEDS: BLOOD SUGAR DIAGNOSTIC 1 EACH STRIP IN SCH ×4 (09:52→22:43)
[2021-12-21] MEDS: INSULIN REGULAR, HUMAN 100 UNIT/ML 3 ML VIAL SQ PRN ×4 (09:53→22:42)
[2021-12-21] MEDS: FLUTICASONE PROPIONATE 16 GM BOTTLE NS SCH ×2 (09:54→17:16)
[2021-12-21] MEDS: methylPREDNISolone SOD SUCC 125 MG/2ML VIAL IV SCH (09:55)
[2021-12-21] MEDS: DULOXETINE HCL 30 MG CAPSULE.DR PO SCH ×2 (09:55→17:15)
[2021-12-21] MEDS: busPIRone 5 MG TABLET PO SCH (09:55)
[2021-12-21] MEDS: FUROSEMIDE 40 MG TABLET PO SCH (09:55)
[2021-12-21] MEDS: GABAPENTIN 100 MG CAPSULE PO SCH ×2 (09:55→17:15)
[2021-12-21] MEDS: APIXABAN 5 MG TABLET PO SCH ×2 (09:56→17:16)
[2021-12-21] MEDS: ASPIRIN 81 MG TAB.CHEW PO SCH (09:56)
[2021-12-21 12:00] VITALS: BP 97/54
[2021-12-21] MEDS: DIGOXIN 0.125 MG TABLET PO SCH (13:18)
[2021-12-21 17:00] VITALS: BP 105/57
[2021-12-21] MEDS: ATORVASTATIN 40 MG TABLET PO SCH (17:15)
--- NOTE | 2021-12-21 18:30 | NUR ---
RN CLOSE NOTE PATIENT IN BED, IN NO ACUTE DISTRESS OBSERVED. RESPIRATION EVEN AND UNLABORED ON ROOM AIR. SKIN IS WARM TO TOUCH KEEP CLEAN//DRY, INTACT IV SITE. KEPT ELEVATED HOB FOR ENSURE AIRWAY AND ASPIRATION PRECAUTION. ALSO LOWEST POSITION OF THE BED FOR SAFETY. CALL LIGHT WITHIN REACH, WILL CONTINUE TO MONITOR.
[2021-12-21] MEDS: METOPROLOL SUCCINATE 50 MG TAB.SR.24H PO SCH (19:00)
--- NOTE | 2021-12-21 22:02 | NUR ---
RCVD PT ON ROOM AIR, PLACED ON NOCTURNAL BIPAP WITH THE SETTINGS OF 15/5 ,RATE 14, FIO2 30% . NO RESPIRATORY DISTRESS NOTED AT THIS TIME . WILL CONTINUE TO MONITOR PT T/O SHIFT
[2021-12-21] MEDS: TRAZODONE 50 MG TABLET PO SCH (22:32)
[2021-12-21] MEDS: ARIPIPRAZOLE 5 MG TABLET PO SCH (22:32)
[2021-12-22] VITALS: BP 91/71
[2021-12-22] MEDS: IPRATROPIUM NEB FS 0.5 MG/2.5 ML AMPUL.NEB NEB SCH ×3 (01:44→13:27)
--- NOTE | 2021-12-22 02:00 | NUR ---
RN NOTE RECEIVED PATIENT FROM EBER RUIZ. PATIENT ASLEEP, ON NOCTURNAL BIPAP TOLERATING WELL, O2 SATURATION OF 95 PERCENT. NO DISTRESS NOTED. CALL LIGHT WITHIN REACH. WILL CONTINUE TO MONITOR
[2021-12-22 04:00] VITALS: BP 117/80
--- NOTE | 2021-12-22 05:10 | NUR ---
RN NOTE PATIENTS BIPAP OFF BY RT. PLACED ON 1 L/MIN VIA NASAL CANNULA. TOLERATING WELL, OXYGEN SATURATION OF 96%. HOB ELEVATED 35 DEGREES. NO DISTRESS. WILL CONTINUE TO MONITOR.
[2021-12-22] MEDS: LEVOTHYROXINE SODIUM 75 MCG TABLET PO SCH (06:34)
[2021-12-22 06:44] LABS: BASOPHILS % (AUTO) 0.1 % (0.0-2.0); EOSINOPHILS % (AUTO) 0.2 % (0.0-6.0); HEMATOCRIT 40 % (33-45); HEMOGLOBIN 12.9 g/dL (11.5-14.8); LYMPHOCYTES # (AUTO) 1.3 K/uL (0.8-4.8); LYMPHOCYTES % (AUTO) 12.1 % (20.0-44.0); MEAN CORPUSCULAR HGB CONC 33 g/dl (31.0-36.0); MEAN CORPUSCULAR VOLUME 91 fL (82-100); MONOCYTES # (AUTO) 0.9 K/uL (0.1-1.30); MONOCYTES % (AUTO) 8.2 % (2.0-12.0); NEUTROPHILS # (AUTO) 8.6 K/uL (1.8-8.9); NEUTROPHILS % (AUTO) 79.4 % (43.0-81.0); PLATELET COUNT (AUTO) 271 K/uL (150-450); RED BLOOD CELL COUNT(AUTO) 4.35 MIL/uL (4.0-5.2); WHITE BLOOD COUNT (AUTO) 10.8 K/uL (4.3-11.0)
[2021-12-22 06:59] LABS: CALCIUM, SERUM 8.9 mg/dL (8.5-10.1); MAGNESIUM 2.4 mg/dL (1.8-2.4); PHOSPHORUS 3.3 mg/dL (2.5-4.9); POTASSIUM 3.8 mmol/L (3.5-5.1)
--- NOTE | 2021-12-22 07:00 | NUR ---
RN NOTE PATIENT RECEIVED IN BED, AO X 3, IN NO ACUTE DISTRESS NOTED. RESPIRATORY EVEN AND UNLABORED ON OXYGEN AT 2Ls. SKIN IS WARM TO TOUCH, KEEP CLEAN/DRY, INTACT IV SITE. KEPT ELEVATED HOB FOR ENSURE AIRWAY AND ASPIRATION PRECAUTION, ALSO LOWEST POSITION OF THE BED, S/R UP X 3 FOR SAFETY. ALL SAFETY PRECAUTION APPLIED. CALL LIGHT WITHIN REACH, WILL CONTINUE TO MONITOR.
[2021-12-22 08:00] VITALS: BP 94/59
[2021-12-22] MEDS: BUDESONIDE RESPULE INH 0.25 MG/2 ML AMPUL.NEB NEB SCH (08:02)
[2021-12-22] MEDS: BLOOD SUGAR DIAGNOSTIC 1 EACH STRIP IN SCH ×3 (08:26→17:37)
[2021-12-22] MEDS: INSULIN REGULAR, HUMAN 100 UNIT/ML 3 ML VIAL SQ PRN ×3 (08:26→17:37)
[2021-12-22] MEDS: DULOXETINE HCL 30 MG CAPSULE.DR PO SCH ×2 (08:27→16:28)
[2021-12-22] MEDS: busPIRone 5 MG TABLET PO SCH (08:29)
[2021-12-22] MEDS: FUROSEMIDE 40 MG TABLET PO SCH (08:29)
[2021-12-22] MEDS: ASPIRIN 81 MG TAB.CHEW PO SCH (08:29)
[2021-12-22] MEDS: GABAPENTIN 100 MG CAPSULE PO SCH ×2 (08:29→16:29)
[2021-12-22] MEDS: LOSARTAN POTASSIUM 25 MG TABLET PO SCH (08:29)
[2021-12-22] MEDS: methylPREDNISolone SOD SUCC 125 MG/2ML VIAL IV SCH (08:30)
[2021-12-22] MEDS: APIXABAN 5 MG TABLET PO SCH ×2 (08:31→16:28)
[2021-12-22] MEDS: FLUTICASONE PROPIONATE 16 GM BOTTLE NS SCH ×2 (08:32→16:34)
[2021-12-22 12:00] VITALS: BP 92/72
[2021-12-22] MEDS: DIGOXIN 0.125 MG TABLET PO SCH (12:04)
[2021-12-22] MEDS ORDERED: predniSONE 10 MG TABLET PO SCH (12:30)
[2021-12-22 16:00] VITALS: BP 105/67
[2021-12-22] MEDS ORDERED: METO50TA7 PO (16:00)
[2021-12-22] MEDS ORDERED: INSU100V28 SQ (16:00)
[2021-12-22] MEDS ORDERED: Hydrocodone/Apap 5/325MG PO (16:00)
[2021-12-22] MEDS ORDERED: PRED5TAB PO (16:00)
[2021-12-22] MEDS ORDERED: BUDE0.25 NEB (16:00)
[2021-12-22] MEDS ORDERED: FURO40TA5 PO (16:00)
[2021-12-22] MEDS ORDERED: TRAZ-252 PO (16:00)
[2021-12-22] MEDS ORDERED: IPRA0.2S9 NEB (16:00)
[2021-12-22] MEDS ORDERED: LOSA25TA27 PO (16:00)
--- NOTE | 2021-12-22 16:00 | NUR ---
RN NOTES IV SITE D/ARIK PER PT REQUEST .
--- NOTE | 2021-12-22 17:00 | NUR ---
RN NOTES REPORT GIVEN TO AVRIL VELÁZQUEZ AT SNF FOR CONTINUITY OF CARE . IV SITE D/CE PER DISCHARGE ORDER .
[2021-12-22] MEDS: ATORVASTATIN 40 MG TABLET PO SCH (17:37)
[2021-12-22 18:11] VITALS: BP 105/67
[2021-12-22] MEDS: METOPROLOL SUCCINATE 50 MG TAB.SR.24H PO SCH (18:11)
--- NOTE | 2021-12-22 18:28 | NUR ---
RN NOTES AWAITING FOR DISCHARGE TO SNF, VSS STABLE, WILL ENDORSE TO INDUSTRIAL TECHNOLOGY EDUCATION TEACHER NURSE FOR CONTINUITY OF CARE.
--- NOTE | 2021-12-22 19:05 | NUR ---
RN OPENING NOTES RECEIVED PATIENT ON BED, AWAKE, VERBALLY RESPONSIVE, A/O X 4. ON ROOM AIR SATING AT 95%. RESPIRATORY EVEN AND UNLABORED, NO SOB NOTED. REMAIN AFEBRILE. NO S/S OF DISTRESS NOTED. VITAL SIGN TAKEN AND RECORDED REMAIN WITH IN NORMAL LIMITS. SAFETY MEASURE PROVIDED. BED IN LOWEST POSITION, LOCKED. BED ALARM ARMED. CONTINUE TO MONITOR.
--- NOTE | 2021-12-22 19:51 | NUR ---
RN NOTES PATIENT DISCHARGED TO [facility], PICKED UP BY 2 EMT'S, REPORT GIVEN, HEALTH TEACHING DONE, TOOK ALL HER BELONGINGS, PATIENT LEFT FACILITY IN STABLE CONDITION. V/S T-98.6, P-92, BP- 116/62, 02SAT- 116/62
[2021-12-23] MEDS ORDERED: predniSONE 5 MG TABLET PO SCH (09:00)
== END 2021-12-22 20:20 | DRG 291 ==
LOC: ER 18:39 → TELE1 21:22 → ICU 21:59 → TELE1 12-18 19:24
PROVIDERS: ADMIT Nurse Practitioner Acute Care; ATTEND Registered Nurse
PROC: 05H533Z Insertion of Infusion Device into Right Subclavian Vein, Percutaneous Approach (ICD-10-PCS; principal; 2021-12-16)
PROC: B546ZZA Ultrasonography of Right Subclavian Vein, Guidance (ICD-10-PCS; 2021-12-16)
PROC: 5A09357 Assistance with Respiratory Ventilation, Less than 24 Consecutive Hours, Continuous Positive Airway Pressure (ICD-10-PCS; 2021-12-16)
PROC: 5A09357 Assistance with Respiratory Ventilation, Less than 24 Consecutive Hours, Continuous Positive Airway Pressure (ICD-10-PCS; 2021-12-17)
DX: I13.0 Hypertensive heart and chronic kidney disease with heart failure and stage 1 through stage 4 chronic kidney disease, or unspecified chronic kidney disease (principal); I50.23 Acute on chronic systolic (congestive) heart failure; J96.01 Acute respiratory failure with hypoxia; N17.0 Acute kidney failure with tubular necrosis; J96.02 Acute respiratory failure with hypercapnia; E44.1 Mild protein-calorie malnutrition; J91.8 Pleural effusion in other conditions classified elsewhere; J98.11 Atelectasis; J44.1 Chronic obstructive pulmonary disease with (acute) exacerbation; I48.20 Chronic atrial fibrillation, unspecified; I42.9 Cardiomyopathy, unspecified; E88.09 Other disorders of plasma-protein metabolism, not elsewhere classified; E11.22 Type 2 diabetes mellitus with diabetic chronic kidney disease; Z87.891 Personal history of nicotine dependence; Z79.01 Long term (current) use of anticoagulants; N18.9 Chronic kidney disease, unspecified; K42.9 Umbilical hernia without obstruction or gangrene; E78.5 Hyperlipidemia, unspecified; E66.9 Obesity, unspecified; E87.5 Hyperkalemia; Z68.34 Body mass index [BMI] 34.0-34.9, adult; F41.9 Anxiety disorder, unspecified; F32.A Depression, unspecified; Z79.84 Long term (current) use of oral hypoglycemic drugs; G47.33 Obstructive sleep apnea (adult) (pediatric); Z91.19 Patient's noncompliance with other medical treatment and regimen; Z20.822 Contact with and (suspected) exposure to COVID-19
CPT/HCPCS: 36410; 36415; 36600; 71045-TC; 76770-TC; 80048-TC; 80061-TC; 80076-TC; 82803-TC; 82962-TC; 83735-TC; 83880; 84100-TC; 84484-TC; 85025-TC; 85730-TC; 87081-TC; 93307-TC; 94660; 94760-TC; 94799-TC; 97116-TC; 97530-TC; C9803; G0378; J0282; J1250; J1815; J1940; J2405; J2930; J3490; J7030; J7040; J7060

== ENCOUNTER 2023-01-25 19:10 | Inpatient (IN) | payer OTHER ==
[~2023-01-25] VITALS: Ht 167.6 cm; Wt 77.1 kg
[~2023-01-25 19:10] MED LIST: ALBU18HF2 INH; ALPR0.25 PO; AMLO2.5T2 PO; APIX5TAB PO; ARIP5TAB10 PO; ATOR40TA PO; BUDE0.25 NEB; BUPR100T6 PO; BUSP5TAB3 PO; DIGO125T PO; DULO30CA2 PO; FLUT16SP BNOSTRILS; FURO20TA4 PO; FURO40TA5 PO; GABA-532 PO; GLIP2.5T16 PO; Hydrocodone/Apap 5/325MG PO; INSU100V28 SQ; IPRA0.2S9 NEB; LEVO75TA7 PO; LOSA25TA27 PO; METF-440 PO; METH500T6 PO; METO200T49 PO; METO50TA7 PO; MOME13HF2 INH; PRED5TAB PO; SPIR25TA PO; TRAZ-252 PO; TRAZ-257 PO; baby aspirin PO
[2023-01-25] MEDS ORDERED: Magnesium 1GM/D5W 100ML PREMIX 200 ML IV ONE ×2 (19:30→19:36)
[2023-01-25] MEDS ORDERED: methylPREDNISolone SOD SUCC 125 MG/2ML VIAL IV ONE (19:30)
[2023-01-25] MEDS ORDERED: IPRATROPIUM NEB FS 0.5 MG/2.5 ML AMPUL.NEB NEB ONE (19:30)
[2023-01-25] MEDS ORDERED: ALBUTEROL FS 2.5 MG/3 ML VIAL.NEB NEB ONE (19:30)
--- NOTE | 2023-01-25 19:34 | NUR ---
Patient AOx4 able to express her concerns. Patient on Non rebreather, pending RT with BIPAP ordered. Night nurse at bedside. Discussed plan of care with patient and pending orders, verbalized assessment.
[2023-01-25] MEDS ORDERED: methylPREDNISolone SOD SUCC 125 MG/2ML VIAL ONE (19:36)
--- NOTE | 2023-01-25 19:39 | NUR ---
Handoff provided to night nurse for continuity of care
--- NOTE | 2023-01-25 19:40 | NUR ---
IV LINE STARTED AT R HAND 22G AND RAC 20G, BLOOD DRAWN AND SENT TO LAB
--- NOTE | 2023-01-25 19:41 | NUR ---
RT AT [facility], PT PALCED ON BIPAP
--- NOTE | 2023-01-25 19:43 | NUR ---
VAN HELPER AT BEDSIDE
[2023-01-25] MEDS ORDERED: DILT-32 PO (19:44)
[2023-01-25] MEDS ORDERED: INSU100V27 SQ (19:44)
[2023-01-25] MEDS ORDERED: AMIO200T5 PO (19:44)
[2023-01-25] MEDS ORDERED: FAMO20TA8 PO (19:44)
[2023-01-25] MEDS ORDERED: CALC1TAB30 PO (19:44)
[2023-01-25] MEDS ORDERED: METO25TA4 PO (19:44)
[2023-01-25] MEDS ORDERED: ALBU2.5V38 IH (19:44)
[2023-01-25] MEDS ORDERED: APIX5TAB PO (19:44)
[2023-01-25] MEDS ORDERED: DOCU-141 PO (19:44)
[2023-01-25] MEDS ORDERED: BISA10SU11 RC (19:44)
[2023-01-25] MEDS ORDERED: HYDR-4076 PO (19:44)
[2023-01-25] MEDS ORDERED: ASPI-1169 PO (19:44)
[2023-01-25] MEDS ORDERED: NA P133E RC (19:44)
[2023-01-25] MEDS ORDERED: FLUT12AE15 IH (19:44)
[2023-01-25] MEDS ORDERED: ACET-868 PO ×2 (19:44→19:45)
[2023-01-25] MEDS ORDERED: BUDE0.5A4 IH (19:44)
[2023-01-25] MEDS ORDERED: MELA5TAB PO (19:45)
[2023-01-25] MEDS ORDERED: MAGN400O6 PO (19:45)
[2023-01-25] MEDS ORDERED: TRIH2TAB3 PO (19:45)
[2023-01-25] MEDS ORDERED: MULT-447 PO (19:45)
[2023-01-25] MEDS ORDERED: SENN-261 PO (19:45)
[2023-01-25] MEDS ORDERED: HYDR-3980 PO (19:45)
[2023-01-25] MEDS ORDERED: LOPE2TAB25 PO (19:45)
[2023-01-25 19:50] LABS: BASOPHILS # (AUTO) 0.2 K/uL (0.0-0.2); BASOPHILS % (AUTO) 1.3 % (0.0-2.0); EOSINOPHILS % (AUTO) 4.5 % (0.0-6.0); HEMATOCRIT 40 % (33-45); HEMOGLOBIN 12.7 g/dL (11.5-14.8); LYMPHOCYTES # (AUTO) 2.3 K/uL (0.8-4.8); LYMPHOCYTES % (AUTO) 13.3 % (20.0-44.0); MEAN CORPUSCULAR HGB CONC 32 g/dl (31.0-36.0); MEAN CORPUSCULAR VOLUME 93 fL (82-100); MONOCYTES # (AUTO) 0.9 K/uL (0.1-1.30); MONOCYTES % (AUTO) 5.4 % (2.0-12.0); NEUTROPHILS # (AUTO) 12.8 K/uL (1.8-8.9); NEUTROPHILS % (AUTO) 75.5 % (43.0-81.0); PLATELET COUNT (AUTO) 370 K/uL (150-450); RED BLOOD CELL COUNT(AUTO) 4.29 MIL/uL (4.0-5.2); WHITE BLOOD COUNT (AUTO) 16.9 K/uL (4.3-11.0)
[2023-01-25] MEDS ORDERED: ALBUTEROL FS 2.5 MG/3 ML VIAL.NEB ONE (19:55)
[2023-01-25] MEDS ORDERED: IPRATROPIUM NEB FS 0.5 MG/2.5 ML AMPUL.NEB ONE (19:55)
--- NOTE | 2023-01-25 20:16 | NUR ---
COVID SWAB DONE, SENT TO LAB
[2023-01-25] MEDS ORDERED: DOXYCYCLINE 100 MG VIAL ONE (20:39)
[2023-01-25] MEDS ORDERED: CEFTRIAXONE 1GM BAG (ER ONLY) 50 ML IV ONE (20:39)
[2023-01-25 20:40] LABS: CALCIUM, SERUM 8.9 mg/dL (8.5-10.1); CARBON DIOXIDE 26 mmol/L (21-32); CHLORIDE 99 mmol/L (98-107); GLUCOSE 186 mg/dL (74-106); POTASSIUM 4.7 mmol/L (3.5-5.1); SODIUM SERUM 135 mmol/L (136-145); UREA NITROGEN, BLOOD 19 mg/dL (7-18)
[2023-01-25] MEDS ORDERED: IV NS 0.9% 250 ML IV ONE (20:41)
[2023-01-25] MEDS ORDERED: IOHEXOL-300 100 ML VIAL IV ONE (20:41)
--- NOTE | 2023-01-25 20:52 | NUR ---
DR ALEXANDER ON PHONE CALL WITH DR DÍAZ ADMITTING
[2023-01-25 20:55] LABS: ALANINE AMINOTRANSFERASE 17 U/L (12-78); ALBUMIN 3.4 g/dL (3.4-5.0); ALKALINE PHOSPHATASE 113 U/L (46-116); ASPARTATE AMINOTRANSFERASE 16 U/L (15-37); BILIRUBIN,DIRECT 0.1 mg/dL (0.0-0.2); BILIRUBIN,TOTAL 0.3 mg/dL (0.2-1.0); TOTAL PROTEIN, SERUM 7.3 g/dL (6.4-8.2)
[2023-01-25] MEDS ORDERED: DOXYCYCLINE 100 MG in IV D5W 100 ML IV ONE (21:00)
[2023-01-25] MEDS ORDERED: CEFTRIAXONE 1GM BAG (ER ONLY) 1 GM/50 ML PIGGYBACK IV ONE (21:00)
[2023-01-25 21:11] LABS: ABG BASE EXCESS -3.5 mmol/L; ABG PCO2 46.5 mmHg (35.0-45.0); ABG PH 7.309 (7.350-7.450); COHb 0.1 % (0.5-1.5); MetHb 0.3 % (0.0-1.5); O2Hb 92.8 % (94.0-97.0); SITE, ABG Left Radial; VENT MODE, BG ST 15/5 50% RR16
--- NOTE | 2023-01-25 21:19 | NUR ---
ABG DRAWN BY RT
--- NOTE | 2023-01-25 21:21 | NUR ---
PT TAKEN TO CT VIA LISA
--- NOTE | 2023-01-25 21:27 | NUR ---
PT RETURNED TO ER BED [address]
[2023-01-25 21:39] LABS: BAND % (MANUAL) 3 % (0.0-5.0); EOSINOPHILS % (MANUAL) 6 % (0-4); LYMPHOCYTES % (MANUAL) 15 % (16-48); MONOCYTES % (MANUAL) 9 % (0-11.0); NEUTROPHILS % (MANUAL) 66 (42-76); REACTIVE LYMPHOCYTES 1 % (0-0)
[2023-01-25] MEDS ORDERED: MAG HYDROX/AL HYDROX/SIMETH 30 ML UDC PO PRN (22:00)
[2023-01-25] MEDS ORDERED: ENOXAPARIN SODIUM 40 MG/0.4 ML DISP.SYRIN SQ SCH (22:00)
[2023-01-25] MEDS ORDERED: ZOLPIDEM TARTRATE 5 MG TABLET PO PRN (22:00)
[2023-01-25] MEDS ORDERED: Z GUARD REMEDY 4 OZ OINT TP PRN (22:00)
[2023-01-25] MEDS ORDERED: ONDANSETRON HCL/PF 4 MG/2 ML VIAL IVP PRN (22:00)
[2023-01-25] MEDS ORDERED: MAGNESIUM HYDROXIDE 30 ML UDC PO PRN (22:00)
[2023-01-25] MEDS ORDERED: ACETAMINOPHEN 325 MG TABLET PO PRN (22:00)
--- NOTE | 2023-01-25 22:17 | NUR ---
US TECH AT BEDSIDE FOR ECHO
--- NOTE | 2023-01-25 22:48 | NUR ---
CT RESULTED, DR DÍAZ MADE AWARE
--- NOTE | 2023-01-25 22:52 | NUR ---
TELEPHONE CALL TO ICU FOR REPORT, HOWEVER, RN STILL WITH ANOTHER PATIENT AT THE MOMENT. WILL CALL BACK ONCE DONE.
--- NOTE | 2023-01-25 23:05 | NUR ---
CLINICAL REPORT GIVEN TO MAXIMINO JIMENEZ PROV
--- NOTE | 2023-01-25 23:21 | NUR ---
CALLED FOR REPORT, RN STILL WITH PATIENT. WILL TRY AGAIN
--- NOTE | 2023-01-25 23:46 | NUR ---
REPORT GIVEN TO GIGI VELÁZQUEZ
[2023-01-26] VITALS (24 sets, daily range): BP systolic 89–118; BP diastolic 49–82
[2023-01-26] MEDS ORDERED: IPRATROPIUM/ALBUTEROL INHALER IH SCH
--- NOTE | 2023-01-26 00:04 | NUR ---
PT TRANSFERRED TO ICU VIA ACLS PROTOCOL WITH RT. ALL BELONGINGS WITH PT
[2023-01-26] MEDS ORDERED: AZITHROMYCIN 500 MG VIAL ONE (00:30)
[2023-01-26] MEDS: AZITHROMYCIN 500 MG in IV D5W 250 ML IV SCH ×2 (00:37→21:00)
[2023-01-26] MEDS: IV NS 0.9% 250 ML IV PRN (00:39)
--- NOTE | 2023-01-26 01:06 | NUR ---
ICU ADMISSION. PT BEING ADMITTED FROM ER VIA GURNEY.PT IA AWAKE, ALERT, FOLLOW COMMANDS. SACRAL REDNESS NOTED RESP/FAILURE, COPD EXACERBATION, CHF. HOB ELEVATED. IV RT AND LT HAND. SALINE LOCK. ASPHALT TAR AND GRAVEL ROOFER SHOWING A FIB. BIPAP ON. SAT 98%
[2023-01-26] MEDS ORDERED: MAGNESIUM HYDROXIDE 30 ML UDC PO PRN (01:30)
[2023-01-26] MEDS ORDERED: BISACODYL SUPP (10 MG) 10 MG/SUPP.RECT SUPP.RECT RC PRN (01:30)
[2023-01-26] MEDS ORDERED: hydrALAZINE HCL 25 MG TABLET PO PRN (01:30)
[2023-01-26] MEDS ORDERED: ACETAMINOPHEN 325 MG TABLET PO PRN (01:30)
[2023-01-26] MEDS ORDERED: HYDROCODONE/APAP 10/325MG TABLET PO PRN (01:30)
[2023-01-26] MEDS ORDERED: NA PHOS,M-B/NA PHOS,DI-BA 1 EA ENEMA RC PRN (01:30)
[2023-01-26] MEDS ORDERED: LOPERAMIDE HCL (2 MG CAP) 2 MG CAPSULE PO PRN (01:30)
[2023-01-26] MEDS: IPRATROPIUM NEB FS 0.5 MG/2.5 ML AMPUL.NEB IH SCH ×4 (01:36→19:36)
[2023-01-26] MEDS: ALBUTEROL FS 2.5 MG/0.5 ML VIAL.NEB NEB SCH ×2 (01:36→07:57)
--- NOTE | 2023-01-26 02:42 | NUR ---
RT NOTE LATE ENTRY PT TAKEN OFF BIPAP AND PLACED ON SIMPLE MASK 10LPM.. RN AWARE Addendum: 01/26/23 at 0617 by ROB BASURTO RT Amended: Links added.
[2023-01-26 04:21] LABS: ABG BASE EXCESS 14.4 mmol/L; ABG OXYGEN SATURATION 95.1 % (92.0-98.5); ABG PCO2 69.2 mmHg (35.0-45.0); ABG PH 7.396 (7.350-7.450); ABG PO2 81.7 mmHg (75.0-100.0); AaDO2 65.5 mmHg; COHb 0.6 % (0.5-1.5); MetHb 0.3 % (0.0-1.5); O2Hb 94.2 % (94.0-97.0); SITE, ABG Right Radial; VENT MODE, BG Nasal Cannula
--- NOTE | 2023-01-26 04:23 | NUR ---
curriculum and assessment coordinator. am care given. remaining same oxygen tolerated well. sat 98%. no acuteb distress noted. bonderizer showing A FIB iv RT and LT hand saline lock, HOB ELEVATED. TURN AND REPOSITION Q2H. WILL CONTINUE TO MONITOR VITALS
[2023-01-26 04:51] LABS: BASOPHILS % (AUTO) 0.1 % (0.0-2.0); EOSINOPHILS % (AUTO) 0.1 % (0.0-6.0); HEMATOCRIT 35 % (33-45); HEMOGLOBIN 11.2 g/dL (11.5-14.8); LYMPHOCYTES # (AUTO) 0.4 K/uL (0.8-4.8); LYMPHOCYTES % (AUTO) 2.3 % (20.0-44.0); MEAN CORPUSCULAR HGB CONC 32 g/dl (31.0-36.0); MEAN CORPUSCULAR VOLUME 93 fL (82-100); MONOCYTES # (AUTO) 0.1 K/uL (0.1-1.30); MONOCYTES % (AUTO) 0.6 % (2.0-12.0); NEUTROPHILS # (AUTO) 15.1 K/uL (1.8-8.9); NEUTROPHILS % (AUTO) 96.9 % (43.0-81.0); PLATELET COUNT (AUTO) 264 K/uL (150-450); RED BLOOD CELL COUNT(AUTO) 3.71 MIL/uL (4.0-5.2); WHITE BLOOD COUNT (AUTO) 15.6 K/uL (4.3-11.0)
[2023-01-26] MEDS: methylPREDNISolone SOD SUCC 40 MG/ML VIAL IV SCH ×3 (05:07→21:00)
[2023-01-26 05:21] LABS: CALCIUM, SERUM 8.5 mg/dL (8.5-10.1); CARBON DIOXIDE 27 mmol/L (21-32); CHLORIDE 95 mmol/L (98-107); CREATININE 1.1 mg/dL (0.6-1.3); MAGNESIUM 2.4 mg/dL (1.8-2.4); PHOSPHORUS 4.2 mg/dL (2.5-4.9); POTASSIUM 5.4 mmol/L (3.5-5.1); SODIUM SERUM 131 mmol/L (136-145); UREA NITROGEN, BLOOD 26 mg/dL (7-18)
[2023-01-26 05:30] LABS: THYROID STIMULATING HORMONE 2.561 uIU/mL (0.358-3.74)
[2023-01-26 05:36] LABS: GLUCOSE 426 mg/dL (74-106)
--- NOTE | 2023-01-26 06:51 | NUR ---
agricultural produce packer. blood sugar [phone]. notified juvenile probation officer md lopez. ordered insulin sliding scale moderate
[2023-01-26] MEDS ORDERED: INSULIN REGULAR, HUMAN 100 UNIT/ML 3 ML VIAL SQ PRN (07:00)
[2023-01-26] MEDS ORDERED: DEXTROSE 50%-WATER 50 ML DISP.SYRIN IV PRN ×2 (07:00→09:30)
--- NOTE | 2023-01-26 07:30 | NUR ---
OPENING NOTE: REPORT RECEIVED FROM PHONG VELÁZQUEZ. PT ALERT OX3. PER REPORT WAS ON BIPAP OVERNIGHT, SWITCHED TO SIMPLE MASK 6L PRIOR TO THIS SHIFT. PT ABLE TO TAKE MEDS WHOLE WITH WATER. WILL GET DIET ORDER SINCE PATIENT IS ONLY ON NOC BIPAP. PT CHECKED ON HOURLY AND PRN BY NURSING STAFF.
[2023-01-26] MEDS: BUDESONIDE RESPULE INH 0.5 MG/2 ML AMPUL.NEB IH SCH ×2 (07:57→15:00)
[2023-01-26] MEDS ORDERED: FUROSEMIDE 40 MG/4 ML VIAL IV SCH (09:00)
[2023-01-26] MEDS ORDERED: CEFTRIAXONE 1 G in IV D5W 50 ML IV SCH (09:00)
[2023-01-26] MEDS: ARIPIPRAZOLE 5 MG TABLET PO SCH (09:05)
[2023-01-26] MEDS: FLUTICASONE/VILANTEROL 1 EACH BLST.W.DEV IH SCH (09:05)
[2023-01-26] MEDS: CALCIUM CARB 250MG /VITAMIN D 1 UDTAB PO SCH (09:05)
[2023-01-26] MEDS: ASPIRIN 81 MG TAB.CHEW PO SCH (09:05)
[2023-01-26] MEDS: TRIHEXYPHENIDYL HCL 2 MG TABLET PO SCH ×2 (09:05→16:42)
[2023-01-26] MEDS: SENNOSIDES 8.6 MG TABLET PO SCH (09:06)
[2023-01-26] MEDS: AMIODARONE HCL 200 MG TABLET PO SCH ×2 (09:06→21:01)
[2023-01-26] MEDS: DIGOXIN 0.125 MG TABLET PO SCH (09:06)
[2023-01-26] MEDS: MULTIVIT W/MINERALS 1 TAB TABLET PO SCH (09:06)
[2023-01-26] MEDS: DULOXETINE HCL 30 MG CAPSULE.DR PO SCH (09:07)
[2023-01-26] MEDS: DILTIAZEM HCL CD 120 MG PO SCH (09:07)
[2023-01-26] MEDS: LEVOTHYROXINE SODIUM 75 MCG TABLET PO SCH (09:08)
[2023-01-26] MEDS: PANTOPRAZOLE 40 MG TABLET.DR PO SCH (09:09)
[2023-01-26] MEDS: DOCUSATE SODIUM 100 MG CAPSULE PO SCH ×3 (09:09→16:42)
[2023-01-26] MEDS: FAMOTIDINE (20 MG) 20 MG TABLET PO SCH ×2 (09:09→16:42)
[2023-01-26] MEDS: buPROPion SR 100 MG TABLET.ER PO SCH ×2 (09:09→21:00)
[2023-01-26] MEDS: FUROSEMIDE 40 MG/4 ML VIAL IV SCH ×3 (09:09→16:42)
[2023-01-26] MEDS: METOPROLOL SUCCINATE 25 MG TAB.SR.24H PO SCH (09:10)
[2023-01-26] MEDS: CARVEDILOL 6.25 MG TABLET PO SCH ×2 (09:23→21:01)
[2023-01-26] MEDS ORDERED: *INSULIN REGULAR(HUMULIN R)HUM 100 UNIT/ML VIAL SQ PRN (09:30)
[2023-01-26] MEDS: APIXABAN 5 MG TABLET PO SCH ×2 (09:33→16:42)
--- NOTE | 2023-01-26 10:00 | NUR ---
PT CLEANED, LINENS CHANGES. PUREWICK DEVICE APPLIED TO PATIENT AT THIS TIME FOR URINE COLLECTION AND FREQUENT URINATION D/T DIURETICS. PT STATES UNDERSTANDING.
[2023-01-26] MEDS: BLOOD SUGAR DIAGNOSTIC 1 EACH STRIP VI SCH ×3 (11:47→21:24)
[2023-01-26] MEDS: INSULIN REGULAR, HUMAN 100 UNIT/ML 3 ML VIAL SQ PRN ×2 (11:49→17:15)
[2023-01-26] MEDS ORDERED: BLOOD SUGAR DIAGNOSTIC 1 EACH STRIP IN SCH ×2 (12:00)
[2023-01-26] MEDS ORDERED: IPRATROPIUM NEB FS 0.5 MG/2.5 ML AMPUL.NEB NEB SCH (13:30)
[2023-01-26 14:47] LABS: CALCIUM, SERUM 8.4 mg/dL (8.5-10.1); CARBON DIOXIDE 28 mmol/L (21-32); CHLORIDE 96 mmol/L (98-107); CREATININE 1.3 mg/dL (0.6-1.3); POTASSIUM 4.6 mmol/L (3.5-5.1); SODIUM SERUM 132 mmol/L (136-145); UREA NITROGEN, BLOOD 24 mg/dL (7-18)
[2023-01-26 14:49] LABS: GLUCOSE 389 mg/dL (74-106)
[2023-01-26 18:04] LABS: BILIRUBIN,URINE NEGATIVE (NEGATIVE); COLOR,URINE YELLOW (YELLOW); LEUKOCYTE ESTERASE ,URINE NEGATIVE (NEGATIVE); NITRITE, URINE NEGATIVE (NEGATIVE); PH,URINE 5.5 (5.0-8.0); PROTEIN,URINE NEGATIVE (NEGATIVE); UGLUCOSE 1+ mg/dL (NEGATIVE); UROBILINOGEN,URINE 0.2 EU/dL (0.2)
--- NOTE | 2023-01-26 18:09 | NUR ---
ICU/RN PM CARE PROVIDED.DUE MEDS ARE GIVEN ORDERED.OK TRANSFER TO [facility].WAITING FOR THE BED.PT IS ON N/C DURING THE DAY AND NEED BI-PAP AT NIGHT.V/S STABLE,AFEBRILE.NO PAIN REPORTED AT THIS TIME.CONTINUE MONITORING.
[2023-01-26 18:17] LABS: CREATININE, URINE < 13.0 MG/DL (30.0-125.0); URINE SODIUM, RANDOM 79 mmol/l (40-220)
[2023-01-26 18:41] LABS: BACTERIA,URINE None seen /HPF (None Seen); MUCUS,URINE Few /LPF (None Seen); RBC,URINE 0-2 /HPF (0-2); WBC,URINE 0-2 /HPF (0-3)
[2023-01-26] MEDS: CEFTRIAXONE 1 G in IV D5W 50 ML IV SCH (20:30)
[2023-01-26] MEDS: TRAZODONE 50 MG TABLET PO SCH (21:25)
[2023-01-26] MEDS: ATORVASTATIN 40 MG TABLET PO SCH (21:25)
--- NOTE | 2023-01-26 23:32 | NUR ---
PT PLACED ON NOC BIPAP
--- NOTE | 2023-01-26 23:59 | NUR ---
PT REQUESTED TO BE OFF BIPAP. NO RESP DISTRESS. O2 SAT 98% ON 3L NC. CONTINUE TO MONITOR.
[2023-01-27] VITALS (25 sets, daily range): BP systolic 94–151; BP diastolic 54–110
[2023-01-27] MEDS: IPRATROPIUM NEB FS 0.5 MG/2.5 ML AMPUL.NEB IH SCH ×4 (01:18→19:43)
[2023-01-27] MEDS: methylPREDNISolone SOD SUCC 40 MG/ML VIAL IV SCH ×2 (04:03→10:18)
[2023-01-27] MEDS: ACETAMINOPHEN 325 MG TABLET PO PRN (04:25)
[2023-01-27 04:43] LABS: BASOPHILS # (AUTO) 0.1 K/uL (0.0-0.2); BASOPHILS % (AUTO) 0.4 % (0.0-2.0); HEMATOCRIT 34 % (33-45); HEMOGLOBIN 11.1 g/dL (11.5-14.8); LYMPHOCYTES # (AUTO) 0.5 K/uL (0.8-4.8); LYMPHOCYTES % (AUTO) 3.3 % (20.0-44.0); MEAN CORPUSCULAR HGB CONC 33 g/dl (31.0-36.0); MEAN CORPUSCULAR VOLUME 91 fL (82-100); MONOCYTES # (AUTO) 0.3 K/uL (0.1-1.30); MONOCYTES % (AUTO) 1.9 % (2.0-12.0); NEUTROPHILS # (AUTO) 15.4 K/uL (1.8-8.9); NEUTROPHILS % (AUTO) 94.4 % (43.0-81.0); PLATELET COUNT (AUTO) 270 K/uL (150-450); WHITE BLOOD COUNT (AUTO) 16.4 K/uL (4.3-11.0)
[2023-01-27 04:55] LABS: BILIRUBIN,TOTAL 0.4 mg/dL (0.2-1.0); CALCIUM, SERUM 8.9 mg/dL (8.5-10.1); CREATININE 0.9 mg/dL (0.6-1.3); MAGNESIUM 2.2 mg/dL (1.8-2.4); PHOSPHORUS 2.6 mg/dL (2.5-4.9); TOTAL PROTEIN, SERUM 6.3 g/dL (6.4-8.2)
--- NOTE | 2023-01-27 07:00 | NUR ---
TARPER PT REMAINED WITH EPISODES OF NON COMPLIANCE DURING THE SHIFT. VERBALLY ABUSIVE AND THREATENING STAFF. PT EDUCATED NUMEROUS TIMES ON THE NEED FOR COMPLIANCE TO BE MONITORED. PT DID NOT VERBALIZE UNDERSTANDING AND PROCEEDED TO YELL AND THREATEN STAFF.
[2023-01-27] MEDS: BUDESONIDE RESPULE INH 0.5 MG/2 ML AMPUL.NEB IH SCH ×2 (07:05→15:00)
--- NOTE | 2023-01-27 07:40 | NUR ---
ICU/RN PT IS RESTING.ON 4L N/C SAT O2-96%.V/S STABLE,AFEBRILE. NO PAIN REPORTED AT THIS TIME. HR CONTROL A-FIB ON MONITOR.IV-HL.PT IS INCONTINENET WITH GOOD UA OUTPUT.
[2023-01-27] MEDS: LEVOTHYROXINE SODIUM 75 MCG TABLET PO SCH (07:42)
[2023-01-27] MEDS: PANTOPRAZOLE 40 MG TABLET.DR PO SCH (07:42)
[2023-01-27] MEDS: BLOOD SUGAR DIAGNOSTIC 1 EACH STRIP VI SCH ×2 (07:42→11:11)
[2023-01-27] MEDS: INSULIN REGULAR, HUMAN 100 UNIT/ML 3 ML VIAL SQ PRN ×3 (07:44→17:07)
[2023-01-27] MEDS: DOCUSATE SODIUM 100 MG CAPSULE PO SCH ×3 (08:09→16:56)
[2023-01-27] MEDS: FLUTICASONE/VILANTEROL 1 EACH BLST.W.DEV IH SCH (08:09)
[2023-01-27] MEDS: MULTIVIT W/MINERALS 1 TAB TABLET PO SCH (08:09)
[2023-01-27] MEDS: DULOXETINE HCL 30 MG CAPSULE.DR PO SCH (08:09)
[2023-01-27] MEDS: ARIPIPRAZOLE 5 MG TABLET PO SCH (08:10)
[2023-01-27] MEDS: buPROPion SR 100 MG TABLET.ER PO SCH ×3 (08:10→22:15)
[2023-01-27] MEDS: CALCIUM CARB 250MG /VITAMIN D 1 UDTAB PO SCH (08:10)
[2023-01-27] MEDS: TRIHEXYPHENIDYL HCL 2 MG TABLET PO SCH ×2 (08:10→16:55)
[2023-01-27] MEDS: DIGOXIN 0.125 MG TABLET PO SCH (08:10)
[2023-01-27] MEDS: ASPIRIN 81 MG TAB.CHEW PO SCH (08:10)
[2023-01-27] MEDS: AMIODARONE HCL 200 MG TABLET PO SCH ×3 (08:11→22:15)
[2023-01-27] MEDS: SENNOSIDES 8.6 MG TABLET PO SCH (08:11)
[2023-01-27] MEDS: DILTIAZEM HCL CD 120 MG PO SCH (08:11)
[2023-01-27] MEDS: FAMOTIDINE (20 MG) 20 MG TABLET PO SCH ×2 (08:12→16:56)
[2023-01-27] MEDS: METOPROLOL SUCCINATE 25 MG TAB.SR.24H PO SCH (08:12)
[2023-01-27] MEDS: CARVEDILOL 6.25 MG TABLET PO SCH ×3 (08:12→22:15)
[2023-01-27] MEDS: APIXABAN 5 MG TABLET PO SCH ×2 (08:13→16:57)
--- NOTE | 2023-01-27 09:27 | NUR ---
ICU/RN DUE MEDS ARE GIVEN ORDERED.
[2023-01-27] MEDS ORDERED: DEXTROSE 50%-WATER 50 ML DISP.SYRIN IV PRN (12:00)
[2023-01-27] MEDS: BLOOD SUGAR DIAGNOSTIC 1 EACH STRIP IN SCH ×3 (13:26→21:18)
--- NOTE | 2023-01-27 15:23 | NUR ---
ICU/RN PM CARE PROVIDED.DUE MEDS ARE GIVEN ORDERED.V/S STABLE,AFEBRILE.NO PAIN REPORTED AT THIS TIME.PT WAS AMBULATING WITH WALKER.
--- NOTE | 2023-01-27 19:30 | NUR ---
MANAGER GARDEN PT VERBALLY ABUSIVE TOWARDS STAFF. EDUCATED PT THAT SHE IS IN THE HOSPITAL AND NEEDS TO COMPLY WITH RULES.
--- NOTE | 2023-01-27 19:44 | NUR ---
RT NOTE PT REFUSING BIPAP AFTER EXPLAINING RISKS AND BENEFITS. NO RESPIRATORY DISTRESS NOTED. PT CURRENTLY ON NASAL CANNULA @ 4 LPM. WILL CONTINUE TO MONITOR.
[2023-01-27] MEDS: CEFTRIAXONE 1 G in IV D5W 50 ML IV SCH (20:00)
--- NOTE | 2023-01-27 20:29 | NUR ---
MID TEACHER PT CONTINUES TO REMOVE O2 SENSOR AND BP CUFF. PER PT THE O2 SENSOR HURTS AND THE DOCTOR TOLD HER SHE DID NOT NEED THEM. EDUCATED PT THAT SHE NEEDS TO BE MONITORED CONTINUOUSLY. PT BECAME AGGRESSIVE AND VERBALLY ABUSIVE TOWARDS STAFF.
[2023-01-27] MEDS: AZITHROMYCIN 500 MG in IV D5W 250 ML IV SCH (21:01)
[2023-01-27] MEDS: *INSULIN REGULAR(HUMULIN R)HUM 100 UNIT/ML VIAL SQ PRN (21:19)
[2023-01-27] MEDS: ATORVASTATIN 40 MG TABLET PO SCH ×2 (21:21→22:00)
[2023-01-27] MEDS: TRAZODONE 50 MG TABLET PO SCH ×2 (21:21→22:00)
--- NOTE | 2023-01-27 22:13 | NUR ---
BOTTOM SANDER MULTIPLE ATTEMPTS BY PRIMARY AND BUILDING PRINCIPAL WERE INEFFECTIVE FOR PT TO TAKE HER MEDS.
--- NOTE | 2023-01-27 23:00 | NUR ---
AUDIO EXPERIENCE EXPERT PT REFUSED BIPAP
[2023-01-28] VITALS (16 sets, daily range): BP systolic 113–158; BP diastolic 60–119
--- NOTE | 2023-01-28 00:50 | NUR ---
PAVER OPERATOR PT CONTINUES TO YELL OUT FOR THE PAST FEW HOURS. PT IS ORIENTED TO SITUATUION. NOW SHE HAS STARTED BITING/CHEWING THE CABLES AND NASAL CANNULA. INFORMED WITH ORDER FOR MILAN COLBY.
[2023-01-28] MEDS ORDERED: LORAZEPAM INJ 2 MG/ML VIAL IV PRN (01:00)
[2023-01-28] MEDS: IPRATROPIUM NEB FS 0.5 MG/2.5 ML AMPUL.NEB IH SCH ×4 (01:26→19:57)
[2023-01-28 04:53] LABS: BASOPHILS # (AUTO) 0.1 K/uL (0.0-0.2); BASOPHILS % (AUTO) 0.6 % (0.0-2.0); HEMATOCRIT 37 % (33-45); HEMOGLOBIN 11.9 g/dL (11.5-14.8); LYMPHOCYTES # (AUTO) 0.6 K/uL (0.8-4.8); LYMPHOCYTES % (AUTO) 3.4 % (20.0-44.0); MEAN CORPUSCULAR HGB CONC 32 g/dl (31.0-36.0); MEAN CORPUSCULAR VOLUME 92 fL (82-100); MONOCYTES # (AUTO) 0.9 K/uL (0.1-1.30); MONOCYTES % (AUTO) 5.2 % (2.0-12.0); NEUTROPHILS # (AUTO) 16.3 K/uL (1.8-8.9); NEUTROPHILS % (AUTO) 90.8 % (43.0-81.0); PLATELET COUNT (AUTO) 307 K/uL (150-450); RED BLOOD CELL COUNT(AUTO) 4.07 MIL/uL (4.0-5.2)
[2023-01-28 05:00] LABS: CALCIUM, SERUM 8.8 mg/dL (8.5-10.1); CARBON DIOXIDE 33 mmol/L (21-32); CHLORIDE 93 mmol/L (98-107); CREATININE 0.9 mg/dL (0.6-1.3); GLUCOSE 265 mg/dL (74-106); PHOSPHORUS 2.7 mg/dL (2.5-4.9); POTASSIUM 3.3 mmol/L (3.5-5.1); SODIUM SERUM 131 mmol/L (136-145); UREA NITROGEN, BLOOD 18 mg/dL (7-18)
[2023-01-28] MEDS: BUDESONIDE RESPULE INH 0.5 MG/2 ML AMPUL.NEB IH SCH ×2 (07:05→13:13)
--- NOTE | 2023-01-28 07:19 | NUR ---
INDUSTRIAL BOILERMAKER NOTE Patient is resting in bed. Cardiac montior showed AF with HR 120/min, MAP>65mmhg. SpO2 >95% with 4L oxygen via NC, no respiratory distress noted. Circulation with restraints use is good. Patient is alert and oriented X3-4, but noted that she had some spontaneous confused speech from time to time. With respect to her COPD state and her refusal for BiPAP last night, informed RT Naveen for review and a possible ABG. Keep observation.
[2023-01-28] MEDS: LEVOTHYROXINE SODIUM 75 MCG TABLET PO SCH (07:46)
[2023-01-28] MEDS: PANTOPRAZOLE 40 MG TABLET.DR PO SCH (07:46)
[2023-01-28] MEDS: BLOOD SUGAR DIAGNOSTIC 1 EACH STRIP IN SCH ×4 (07:48→22:17)
[2023-01-28] MEDS: INSULIN REGULAR, HUMAN 100 UNIT/ML 3 ML VIAL SQ PRN ×3 (08:06→17:20)
[2023-01-28] MEDS: ASPIRIN 81 MG TAB.CHEW PO SCH (08:30)
[2023-01-28] MEDS: DULOXETINE HCL 30 MG CAPSULE.DR PO SCH (08:30)
[2023-01-28] MEDS: TRIHEXYPHENIDYL HCL 2 MG TABLET PO SCH ×2 (08:30→16:20)
[2023-01-28] MEDS: FAMOTIDINE (20 MG) 20 MG TABLET PO SCH ×2 (08:31→16:20)
[2023-01-28] MEDS: CARVEDILOL 6.25 MG TABLET PO SCH ×2 (08:31→21:41)
[2023-01-28] MEDS: buPROPion SR 100 MG TABLET.ER PO SCH ×2 (08:31→22:15)
[2023-01-28] MEDS: ARIPIPRAZOLE 5 MG TABLET PO SCH (08:32)
[2023-01-28] MEDS: DILTIAZEM HCL CD 120 MG PO SCH (08:32)
[2023-01-28] MEDS: DOCUSATE SODIUM 100 MG CAPSULE PO SCH ×3 (08:32→16:20)
[2023-01-28] MEDS: MULTIVIT W/MINERALS 1 TAB TABLET PO SCH (08:32)
[2023-01-28] MEDS: DIGOXIN 0.125 MG TABLET PO SCH (08:32)
[2023-01-28] MEDS: SENNOSIDES 8.6 MG TABLET PO SCH (08:33)
[2023-01-28] MEDS: AMIODARONE HCL 200 MG TABLET PO SCH ×2 (08:33→21:40)
[2023-01-28] MEDS: CALCIUM CARB 250MG /VITAMIN D 1 UDTAB PO SCH (08:33)
[2023-01-28] MEDS: methylPREDNISolone SOD SUCC 40 MG/ML VIAL IV SCH (08:34)
[2023-01-28] MEDS: APIXABAN 5 MG TABLET PO SCH ×2 (08:37→16:22)
[2023-01-28] MEDS: FLUTICASONE/VILANTEROL 1 EACH BLST.W.DEV IH SCH (09:00)
[2023-01-28] MEDS ORDERED: POTASSIUM CHLORIDE 20 MEQ TAB.PRT.SR PO SCH (09:00)
--- NOTE | 2023-01-28 10:08 | NUR ---
FRONT END MANAGER NOTE Patient tolerated 2L of oxygen use, with Spo2>88%, no respiratory distress noted.
[2023-01-28] MEDS ORDERED: QUETIAPINE FUMARATE 25 MG TABLET PO ONE (12:00)
--- NOTE | 2023-01-28 15:09 | NUR ---
HARDWARE ENGINEERING MANAGER NOTE Handover is given to EBER Camargo for continuity of care. Patient's vital signs are stable upon transfer: MAP>65mmHg, Af with HR 95/min, Spo2 95% with 2L oxygen via NC.
--- NOTE | 2023-01-28 15:20 | NUR ---
patient was transferred from ICU with primary diagnosis of COPD AND CHF EXACERBATION .PATIENT IS ALERT , ORIENTED TIMES 3 , OCCASIONALLY CONFUSED.PATIENT IS ON BILATERAL SOFT RESTRAIN. PATIENT IS ON O2 2 L VIA N/C , O2 SAT 93 % , GOAL NOT LESS THEN 88 %. PATIENT HAS PUREWEAK IN PLACE , URINE IS YELLOW AND CLEAR .IV ACCESS ON RUM MID LINE .BED IS AT LOWEST POSITION , CALL LIGHT WITHIN REACH , BED SIDE RAILS ARE UP .WILL CONTINUE TO MONITOR.
[2023-01-28] MEDS: IV NS 0.9% 250 ML IV PRN (16:01)
--- NOTE | 2023-01-28 18:36 | NUR ---
.OLIVIA CLOSING NITE PATIENT IS ALERT , ORIENTED TIMES 3 , OCCASIONALLY CONFUSED.PATIENT IS ON BILATERAL SOFT RESTRAIN PATIENT IS ON O2 2 L VIA N/C , O2 SAT 93 % , GOAL NOT LESS THEN 88 %. PATIENT HAS PUREWEAK IN PLACE , URINE IS YELLOW AND CLEAR .IV ACCESS ON RUM MID LINE .BED IS AT LOWEST POSITION , CALL LIGHT WITHIN REACH , BED SIDE RAILS ARE UP .ALL [id number] WERE ADMINISTRED , ALL MEDS WERE MET WILL ENDORSE TANK CAR LOADER NURSE TO FALLOW POC.
--- NOTE | 2023-01-28 19:50 | NUR ---
OLIVIA OPENING NOTES: RECEIVED PATIENT IN BED, SLEEPING BUT EASILY AROUSABLE. PT IS ALERT/ORIENTED X3 WITH EPISODES OF CONFUSION AND RESPONSIVE TO PAINFUL STIMULI. ON O2 AT 2L/MIN VIA N/C AND PT TOLERATED WELL. IV ACCESS ON CARON MID LINE INTACT AND PATENT. ON BILATERAL SOFT RESTRAINT. PT HAS PUREWICK. DRAINING BY GRAVITY. NOTED CLEAR/YELLOW URINE. ALL SAFETY MEASURES IN PLACE. BED IN LOWEST POSITION AND LOCKED. SIDE RAILS UPX3. WILL CONTINUE TO MONITOR
[2023-01-28] MEDS: CEFTRIAXONE 1 G in IV D5W 50 ML IV SCH (21:18)
[2023-01-28] MEDS ORDERED: buPROPion 100 MG TABLET ONE (21:39)
[2023-01-28] MEDS: QUETIAPINE FUMARATE 25 MG TABLET PO SCH (21:42)
[2023-01-28] MEDS: TRAZODONE 50 MG TABLET PO SCH (21:43)
[2023-01-28] MEDS: ATORVASTATIN 40 MG TABLET PO SCH (21:43)
[2023-01-28] MEDS: AZITHROMYCIN 500 MG in IV D5W 250 ML IV SCH (21:52)
[2023-01-28] MEDS ORDERED: buPROPion SR 100 MG TABLET.ER PO ONE (22:12)
[2023-01-28] MEDS: *INSULIN REGULAR(HUMULIN R)HUM 100 UNIT/ML VIAL SQ PRN (22:21)
--- NOTE | 2023-01-28 22:29 | NUR ---
RN NOTES: PT'S BLOOD SUGAR 234. 4 UNITS OF REGULAR INSULIN GIVEN. NO S/S OF HYPER/HYPOGLYCEMIA. WILL CONTINUE TO MONITOR
[2023-01-29] VITALS: BP 103/75
[2023-01-29] MEDS: IPRATROPIUM NEB FS 0.5 MG/2.5 ML AMPUL.NEB IH SCH ×5 (01:35→20:02)
[2023-01-29 04:00] VITALS: BP 134/77
[2023-01-29 06:00] LABS: BASOPHILS % (AUTO) 0.1 % (0.0-2.0); HEMATOCRIT 37 % (33-45); HEMOGLOBIN 12.1 g/dL (11.5-14.8); LYMPHOCYTES % (AUTO) 8.1 % (20.0-44.0); MEAN CORPUSCULAR HGB CONC 33 g/dl (31.0-36.0); MEAN CORPUSCULAR VOLUME 93 fL (82-100); MONOCYTES # (AUTO) 1.1 K/uL (0.1-1.30); MONOCYTES % (AUTO) 8.7 % (2.0-12.0); NEUTROPHILS # (AUTO) 10.7 K/uL (1.8-8.9); NEUTROPHILS % (AUTO) 83.1 % (43.0-81.0); PLATELET COUNT (AUTO) 292 K/uL (150-450); RED BLOOD CELL COUNT(AUTO) 3.99 MIL/uL (4.0-5.2); WHITE BLOOD COUNT (AUTO) 12.9 K/uL (4.3-11.0)
[2023-01-29 06:14] LABS: CALCIUM, SERUM 8.9 mg/dL (8.5-10.1); CREATININE 0.9 mg/dL (0.6-1.3); MAGNESIUM 2.2 mg/dL (1.8-2.4); PHOSPHORUS 3.1 mg/dL (2.5-4.9); POTASSIUM 3.8 mmol/L (3.5-5.1)
--- NOTE | 2023-01-29 06:26 | NUR ---
OLIVIA RN CLOSING NOTES: PATIENT IN BED, SLEEPING BUT EASILY AROUSABLE. PT IS ALERT/ORIENTED X3 WITH EPISODES OF CONFUSION AND RESPONSIVE TO PAINFUL STIMULI. ON O2 AT 2L/MIN VIA N/C AND PT TOLERATED WELL. O2 SAT 96%. IV ACCESS ON CARON MID LINE INTACT AND PATENT. ON BILATERAL SOFT RESTRAINT. RELEASED Q 2 HOURS TO CHECK CIRCULATION. PT HAS PUREWICK. DRAINING BY GRAVITY. NOTED CLEAR/YELLOW URINE. 1000 URINE OUTPUT. ALL DU MEDS GIVEN ORDERED. ALL SAFETY MEASURES IN PLACE. BED IN LOWEST POSITION AND LOCKED. SIDE RAILS UPX3. WILL ENDORSE TO MORNING SHIFT NURSE.
--- NOTE | 2023-01-29 07:00 | NUR ---
RN OPENING NOTE PATIENT IN BED ASLEEP, EASILY AROUSABLE,ALERT/ORIENTED X3 WITH EPISODES OF CONFUSION. ON O2 AT 2L/MIN VIA N/C TOLERATED WELL. O2 SAT 96%. IV ACCESS LEFT UA MID LINE INTACT AND PATENT. ON BILATERAL SOFT RESTRAINTS, D/T EPISODES OF DISTRACTION OF MEDICAL CARE, RELEASED Q 2 HOURS TO CHECK CIRCULATION. PT HAS PUREWICK. DRAINING WELL CLEAR/YELLOW URINE. SAFETY MEASURES IMPLEMENTED, BED IN LOWEST LOCKED POSITION, SIDE RAILS UP X3. WILL CONTINUE TO MONITOR.
[2023-01-29] MEDS: LEVOTHYROXINE SODIUM 75 MCG TABLET PO SCH (07:40)
[2023-01-29] MEDS: PANTOPRAZOLE 40 MG TABLET.DR PO SCH (07:40)
[2023-01-29] MEDS: BLOOD SUGAR DIAGNOSTIC 1 EACH STRIP IN SCH ×4 (07:40→22:34)
[2023-01-29] MEDS: INSULIN REGULAR, HUMAN 100 UNIT/ML 3 ML VIAL SQ PRN ×2 (07:45→11:33)
[2023-01-29 08:00] VITALS: BP 143/88
[2023-01-29] MEDS: BUDESONIDE RESPULE INH 0.5 MG/2 ML AMPUL.NEB IH SCH ×2 (08:19→13:38)
[2023-01-29] MEDS: DIGOXIN 0.125 MG TABLET PO SCH (08:56)
[2023-01-29] MEDS: DULOXETINE HCL 30 MG CAPSULE.DR PO SCH (08:56)
[2023-01-29] MEDS: AMIODARONE HCL 200 MG TABLET PO SCH ×2 (08:57→21:46)
[2023-01-29] MEDS: ASPIRIN 81 MG TAB.CHEW PO SCH (08:57)
[2023-01-29] MEDS: DOCUSATE SODIUM 100 MG CAPSULE PO SCH ×3 (08:57→16:16)
[2023-01-29] MEDS: ARIPIPRAZOLE 5 MG TABLET PO SCH (08:57)
[2023-01-29] MEDS: TRIHEXYPHENIDYL HCL 2 MG TABLET PO SCH ×2 (08:57→16:16)
[2023-01-29] MEDS: FAMOTIDINE (20 MG) 20 MG TABLET PO SCH ×2 (08:57→16:16)
[2023-01-29] MEDS: MULTIVIT W/MINERALS 1 TAB TABLET PO SCH (08:58)
[2023-01-29] MEDS: CALCIUM CARB 250MG /VITAMIN D 1 UDTAB PO SCH (08:58)
[2023-01-29] MEDS: CARVEDILOL 6.25 MG TABLET PO SCH ×2 (08:58→21:45)
[2023-01-29] MEDS: SENNOSIDES 8.6 MG TABLET PO SCH (08:59)
[2023-01-29] MEDS: DILTIAZEM HCL CD 120 MG PO SCH (08:59)
[2023-01-29] MEDS: APIXABAN 5 MG TABLET PO SCH ×2 (09:02→16:17)
[2023-01-29] MEDS: FLUTICASONE/VILANTEROL 1 EACH BLST.W.DEV IH SCH (09:05)
[2023-01-29 09:31] LABS: BILIRUBIN,DIRECT 0.1 mg/dL (0.0-0.2); BILIRUBIN,TOTAL 0.3 mg/dL (0.2-1.0); TOTAL PROTEIN, SERUM 5.7 g/dL (6.4-8.2)
[2023-01-29] MEDS: buPROPion SR 100 MG TABLET.ER PO SCH ×2 (09:41→21:45)
[2023-01-29 12:00] VITALS: BP 135/66
[2023-01-29] MEDS: FUROSEMIDE 40 MG TABLET PO SCH (12:41)
[2023-01-29 16:00] VITALS: BP 150/84
--- NOTE | 2023-01-29 16:50 | NUR ---
PATIENT REFUSED BLOOD SUGAR CHECK
[2023-01-29] MEDS ORDERED: HALOPERIDOL LACTATE INJ 5 MG/ML VIAL IM ONE (17:30)
--- NOTE | 2023-01-29 17:50 | NUR ---
PATIENT BECAME AGITATED, HOSTILE AND VERY LOUD, UNABLE TO CALM DOWN. CONTACTED ALISHA ORTIZ, GREASE RENDERER, GOT AN ORDER FOR HALDOL 2.5MG IM ONE TIME ONLY. BUT BY THAT TIME PT WENT TO SLEEP. HALDOL NOT ADMINISTERED, WILL INDORSE TO THE NEXT SHIFT NURSE THAT ORDER FOR ONLY ONCE IN CASE OF SEVERE AGITATION.
--- NOTE | 2023-01-29 18:53 | NUR ---
RN CLOSING NOTE PATIENT IN BED ASLEEP, ON O2 AT 2L/MIN VIA N/C TOLERATED WELL. O2 SAT 96%. IV ACCESS LEFT UA MID LINE INTACT AND PATENT. ON BILATERAL SOFT RESTRAINTS, D/T EPISODES OF DISTRACTION OF MEDICAL CARE, RELEASED Q 2 HOURS TO CHECK CIRCULATION. PT HAS PUREWICK. DRAINING WELL CLEAR/YELLOW URINE. SAFETY MEASURES IMPLEMENTED, BED IN LOWEST LOCKED POSITION, SIDE RAILS UP X3. WILL ENDORSE TO THE UPCOMING SHIFT NURSE FOR JAYJAY.
--- NOTE | 2023-01-29 19:40 | NUR ---
RN OPENING NOTES: RECEIVED PATIENT IN BED, SLEEPING BUT EASILY AROUSABLE. PT IS ALERT/ORIENTED X 3 WITH EPISODES OF CONFUSION AND VERBALLY RESPONSIVE. NOTED EPISODES OF SCREAMING AND YELLING. ON O2 AT 2L/MIN VIA N/C AND PT TOLERATED WELL. IV ACCESS ON CARON MID LINE INTACT AND PATENT. ON BILATERAL SOFT RESTRAINT. PT HAS PUREWICK. DRAINING BY GRAVITY. NOTED CLEAR/YELLOW URINE. NO C/O PAIN OR DISCOMFORT. NO ACUTE DISTRESS. ALL SAFETY MEASURES IN PLACE. BED IN LOWEST POSITION AND LOCKED. SIDE RAILS UPX3. WILL CONTINUE TO MONITOR
[2023-01-29 20:00] VITALS: BP 153/84
[2023-01-29] MEDS: CEFTRIAXONE 1 G in IV D5W 50 ML IV SCH (21:18)
[2023-01-29] MEDS ORDERED: HALOPERIDOL LACTATE INJ 5 MG/ML VIAL IM PRN (21:30)
[2023-01-29] MEDS: AZITHROMYCIN 500 MG in IV D5W 250 ML IV SCH (21:34)
--- NOTE | 2023-01-29 21:36 | NUR ---
RN NOTES: PT BECAME VERY AGITATED, HOSTILE AND APPEARED TO BE VERY AGGRESSIVE. NOTIFIED DR. DÍAZ. ORDER HALDOL 2.5 MG IM Q 8HOURS. ORDER NOTED AND CARRIED OUT.
[2023-01-29] MEDS: TRAZODONE 50 MG TABLET PO SCH (21:44)
[2023-01-29] MEDS: ATORVASTATIN 40 MG TABLET PO SCH (21:44)
[2023-01-29] MEDS: QUETIAPINE FUMARATE 25 MG TABLET PO SCH (21:46)
--- NOTE | 2023-01-29 22:00 | NUR ---
RN NOTES: PT C/O RT SHOULDER PAIN, 3/10 PAIN SCALE. TYLENOL 325 MG 2 TABS GIVEN. PT TOLERATED WELL. WILL CONTINUE TO MONITOR
[2023-01-29] MEDS: *INSULIN REGULAR(HUMULIN R)HUM 100 UNIT/ML VIAL SQ PRN (22:37)
--- NOTE | 2023-01-29 22:40 | NUR ---
RN NOTES: PT'S BLOOD SUGAR 165. 3 UNITS OF REGULAR INSULIN GIVEN. NO S/S OF HYPER/HYPOGLYCEMIA. WILL CONTINUE TO MONITOR
[2023-01-30] VITALS: BP 150/86
[2023-01-30] MEDS: IPRATROPIUM NEB FS 0.5 MG/2.5 ML AMPUL.NEB IH SCH ×4 (02:01→19:47)
[2023-01-30 04:00] VITALS: BP 150/88
--- NOTE | 2023-01-30 06:29 | NUR ---
RN CLOSING NOTES: PATIENT IN BED, SLEEPING BUT EASILY AROUSABLE. PT IS ALERT/ORIENTED X3 WITH EPISODES OF CONFUSION AND RESPONSIVE TO PAINFUL STIMULI. ON O2 AT 2L/MIN VIA N/C AND PT TOLERATED WELL. O2 SAT 93%. IV ACCESS ON CARON MID LINE INTACT AND PATENT. ON BILATERAL SOFT RESTRAINT. RELEASED Q 2 HOURS TO CHECK CIRCULATION. PT HAS PUREWICK. DRAINING BY GRAVITY. NOTED CLEAR/YELLOW URINE. 1500 URINE OUTPUT. PT REMAIN CALM AT THIS MOMENT. ALL DUE MEDS GIVEN ORDERED. ALL SAFETY MEASURES IN PLACE. BED IN LOWEST POSITION AND LOCKED. SIDE RAILS UPX3. WILL ENDORSE TO MORNING SHIFT NURSE.
--- NOTE | 2023-01-30 07:00 | NUR ---
RN NOTE RECEIVED PATIENT IN BED RESTING ALERT ORIENTED X3,WITH CONFUSION,VERBALLY RESPONSIVE,ANXOUS,SCREAMING,IV ACCESS ON CARON MID LINE INTACT AND PATENT,INCONTIENT BOWEL/BLADDER,SAFETY MEASURE IMPLEMENT BED IN LOW POSITION AND LOCKED,CALL LIGHT WITHIN REACH,BILATERAL SOFT WRIST RESTRAIN IN PLACE WILL CHECK EVERY 15 MINS FOR SKIN BREAKDOWN,AND CIRCULATION,CONTINUE TO MONITOR.
[2023-01-30] MEDS: BUDESONIDE RESPULE INH 0.5 MG/2 ML AMPUL.NEB IH SCH ×2 (07:05→15:02)
[2023-01-30] MEDS: PANTOPRAZOLE 40 MG TABLET.DR PO SCH (07:22)
[2023-01-30] MEDS: LEVOTHYROXINE SODIUM 75 MCG TABLET PO SCH (07:22)
[2023-01-30 07:28] LABS: BASOPHILS % (AUTO) 0.3 % (0.0-2.0); EOSINOPHILS % (AUTO) 2.8 % (0.0-6.0); HEMATOCRIT 42 % (33-45); HEMOGLOBIN 13.7 g/dL (11.5-14.8); LYMPHOCYTES # (AUTO) 1.8 K/uL (0.8-4.8); LYMPHOCYTES % (AUTO) 18.6 % (20.0-44.0); MEAN CORPUSCULAR HGB CONC 33 g/dl (31.0-36.0); MEAN CORPUSCULAR VOLUME 92 fL (82-100); MONOCYTES # (AUTO) 0.8 K/uL (0.1-1.30); MONOCYTES % (AUTO) 7.9 % (2.0-12.0); NEUTROPHILS # (AUTO) 6.9 K/uL (1.8-8.9); NEUTROPHILS % (AUTO) 70.4 % (43.0-81.0); PLATELET COUNT (AUTO) 261 K/uL (150-450); RED BLOOD CELL COUNT(AUTO) 4.55 MIL/uL (4.0-5.2); WHITE BLOOD COUNT (AUTO) 9.7 K/uL (4.3-11.0)
[2023-01-30] MEDS: BLOOD SUGAR DIAGNOSTIC 1 EACH STRIP IN SCH ×4 (07:30→22:05)
[2023-01-30 07:49] LABS: CALCIUM, SERUM 8.4 mg/dL (8.5-10.1); CARBON DIOXIDE 36 mmol/L (21-32); CHLORIDE 97 mmol/L (98-107); CREATININE 0.9 mg/dL (0.6-1.3); GLUCOSE 195 mg/dL (74-106); POTASSIUM 3.4 mmol/L (3.5-5.1); SODIUM SERUM 138 mmol/L (136-145); UREA NITROGEN, BLOOD 18 mg/dL (7-18)
[2023-01-30 08:00] VITALS: BP 143/81
[2023-01-30] MEDS: AMIODARONE HCL 200 MG TABLET PO SCH ×2 (09:10→22:03)
[2023-01-30] MEDS: MULTIVIT W/MINERALS 1 TAB TABLET PO SCH (09:10)
[2023-01-30] MEDS: FUROSEMIDE 40 MG TABLET PO SCH (09:10)
[2023-01-30] MEDS: TRIHEXYPHENIDYL HCL 2 MG TABLET PO SCH ×2 (09:11→17:23)
[2023-01-30] MEDS: SENNOSIDES 8.6 MG TABLET PO SCH (09:11)
[2023-01-30] MEDS: ARIPIPRAZOLE 5 MG TABLET PO SCH (09:11)
[2023-01-30] MEDS: FAMOTIDINE (20 MG) 20 MG TABLET PO SCH ×2 (09:11→17:23)
[2023-01-30] MEDS: DILTIAZEM HCL CD 120 MG PO SCH (09:11)
[2023-01-30] MEDS: DIGOXIN 0.125 MG TABLET PO SCH (09:11)
[2023-01-30] MEDS: DULOXETINE HCL 30 MG CAPSULE.DR PO SCH (09:12)
[2023-01-30] MEDS: ASPIRIN 81 MG TAB.CHEW PO SCH (09:12)
[2023-01-30] MEDS: DOCUSATE SODIUM 100 MG CAPSULE PO SCH ×3 (09:12→17:00)
[2023-01-30] MEDS: CALCIUM CARB 250MG /VITAMIN D 1 UDTAB PO SCH (09:12)
[2023-01-30] MEDS: CARVEDILOL 6.25 MG TABLET PO SCH ×2 (09:12→22:02)
[2023-01-30] MEDS: APIXABAN 5 MG TABLET PO SCH ×2 (09:14→17:25)
[2023-01-30] MEDS: FLUTICASONE/VILANTEROL 1 EACH BLST.W.DEV IH SCH (09:14)
[2023-01-30] MEDS: buPROPion SR 100 MG TABLET.ER PO SCH ×2 (09:16→22:04)
[2023-01-30] MEDS ORDERED: POTASSIUM CHLORIDE 20 MEQ POWDER PACKET PO ONE (10:00)
[2023-01-30] MEDS ORDERED: POTASSIUM CHLORIDE 20 MEQ TAB.PRT.SR PO ONE (10:00)
[2023-01-30] MEDS: INSULIN REGULAR, HUMAN 100 UNIT/ML 3 ML VIAL SQ PRN ×4 (10:35→22:19)
[2023-01-30 12:00] VITALS: BP 141/97
[2023-01-30] MEDS: HALOPERIDOL LACTATE INJ 5 MG/ML VIAL IM PRN ×2 (14:45→22:51)
[2023-01-30 16:00] VITALS: BP 113/65
--- NOTE | 2023-01-30 19:15 | NUR ---
RN NOTE PATIENT REMAINS ALERT ORIENTED X3,WITH CONFUSION,VERBALLY RESPONSIVE,IV ACCESS ON CARON MID LINE INTACT AND PATENT,INCONTINENT BOWEL/BLADDER,KEPT CLEAN AND DRY ALL THE TIME,KEPT CALL LIGHT WITHIN REACH ENDORSE NEXT COMING SHIFT FOR CONTINUATION OF CARE.
--- NOTE | 2023-01-30 19:30 | NUR ---
PT IN BED AWAKE. A/OX3 WITH EPISODES OF CONFUSION. ON 02 VIA NC AT 2LPM. ON CARDIAC DIET. IV ACCESS ON KENDRA ML #18G ON SL. SAFETY MEASURES IN PLACE. HOB ELEVATED. WILL CONTINUE PLAN OF CARE.
[2023-01-30 20:00] VITALS: BP 119/41
[2023-01-30] MEDS: CEFTRIAXONE 1 G in IV D5W 50 ML IV SCH (22:01)
[2023-01-30] MEDS: QUETIAPINE FUMARATE 25 MG TABLET PO SCH (22:03)
[2023-01-30] MEDS: TRAZODONE 50 MG TABLET PO SCH (22:03)
[2023-01-30] MEDS: ATORVASTATIN 40 MG TABLET PO SCH (22:03)
[2023-01-31] VITALS: BP 98/57
[2023-01-31] MEDS: IPRATROPIUM NEB FS 0.5 MG/2.5 ML AMPUL.NEB IH SCH ×4 (02:14→20:01)
[2023-01-31 04:00] VITALS: BP 95/60
--- NOTE | 2023-01-31 06:53 | NUR ---
PT IN BED ASLEEP. EASILY AROUSABLE. A/OX3 WITH EPISODES OF CONFUSION. ON RA. O2SAT AT 94% TO 98%. ON CARDIAC DIET. IV ACCESS ON KENDRA ML #18G ON SL. SAFETY MEASURES MAINTAINED. HOB ELEVATED. WILL ENDORSE TO NEXT NURSE ON DUTY FOR CONTINUITY OF CARE.
--- NOTE | 2023-01-31 07:00 | NUR ---
RN NOTE RECEIVED PATIENT IN BED RESTING ALERT ORIENTED X3,WITH CONFUSION,VERBALLY RESPONSIVE,IV ACCESS ON CARON MID LINE INTACT AND PATENT,INCONTINENT BOWEL/BLADDER,SAFETY MEASURE IMPLEMENT BED IN LOW POSITION AND LOCKED,CALL LIGHT WITHIN REACH,CONTINUE TO MONITOR.
[2023-01-31] MEDS: LEVOTHYROXINE SODIUM 75 MCG TABLET PO SCH (07:29)
[2023-01-31] MEDS: PANTOPRAZOLE 40 MG TABLET.DR PO SCH (07:30)
[2023-01-31] MEDS: BLOOD SUGAR DIAGNOSTIC 1 EACH STRIP IN SCH ×4 (07:34→21:35)
[2023-01-31] MEDS: BUDESONIDE RESPULE INH 0.5 MG/2 ML AMPUL.NEB IH SCH ×2 (07:51→13:54)
[2023-01-31 08:00] VITALS: BP 118/43
[2023-01-31] MEDS: ARIPIPRAZOLE 5 MG TABLET PO SCH (09:11)
[2023-01-31] MEDS: DIGOXIN 0.125 MG TABLET PO SCH (09:11)
[2023-01-31] MEDS: FUROSEMIDE 40 MG TABLET PO SCH (09:12)
[2023-01-31] MEDS: ASPIRIN 81 MG TAB.CHEW PO SCH (09:12)
[2023-01-31] MEDS: AMIODARONE HCL 200 MG TABLET PO SCH ×2 (09:12→20:48)
[2023-01-31] MEDS: TRIHEXYPHENIDYL HCL 2 MG TABLET PO SCH ×2 (09:12→17:19)
[2023-01-31] MEDS: CALCIUM CARB 250MG /VITAMIN D 1 UDTAB PO SCH (09:13)
[2023-01-31] MEDS: MULTIVIT W/MINERALS 1 TAB TABLET PO SCH (09:13)
[2023-01-31] MEDS: SENNOSIDES 8.6 MG TABLET PO SCH (09:13)
[2023-01-31] MEDS: APIXABAN 5 MG TABLET PO SCH ×2 (09:14→17:21)
[2023-01-31] MEDS: DILTIAZEM HCL CD 120 MG PO SCH (09:14)
[2023-01-31] MEDS: DULOXETINE HCL 30 MG CAPSULE.DR PO SCH (09:15)
[2023-01-31] MEDS: FAMOTIDINE (20 MG) 20 MG TABLET PO SCH ×2 (09:15→17:22)
[2023-01-31] MEDS: CARVEDILOL 6.25 MG TABLET PO SCH ×2 (09:16→20:48)
[2023-01-31] MEDS: DOCUSATE SODIUM 100 MG CAPSULE PO SCH ×3 (09:16→17:22)
[2023-01-31] MEDS: buPROPion SR 100 MG TABLET.ER PO SCH ×2 (09:28→20:48)
[2023-01-31] MEDS: FLUTICASONE/VILANTEROL 1 EACH BLST.W.DEV IH SCH (09:29)
[2023-01-31 12:00] VITALS: BP 118/65
[2023-01-31] MEDS: INSULIN REGULAR, HUMAN 100 UNIT/ML 3 ML VIAL SQ PRN ×2 (12:34→18:04)
--- NOTE | 2023-01-31 13:49 | NUR ---
RN NOTE REPORT GIVEN TO TAJ FOR CONTINUEATION OF CARE.
[2023-01-31] MEDS: HALOPERIDOL LACTATE INJ 5 MG/ML VIAL IM PRN (15:14)
[2023-01-31] MEDS: ACETAMINOPHEN 325 MG TABLET PO PRN (15:40)
--- NOTE | 2023-01-31 15:45 | NUR ---
PATIENT COMPLAINING OF CHEST PAIN AND ASKING TO GO TO ER. ORDERED STAT EKG AND NOTIFIED DR. RAUSCH.
[2023-01-31 16:00] VITALS: BP 133/55
[2023-01-31 17:00] LABS: CALCIUM, SERUM 9.2 mg/dL (8.5-10.1); CREATININE 0.9 mg/dL (0.6-1.3); POTASSIUM 4.1 mmol/L (3.5-5.1)
--- NOTE | 2023-01-31 19:30 | NUR ---
DRY CLEANER HELPER OPENING NOTES: RECEIVED PATIENT IN BED, SLEEPING BUT EASILY AROUSABLE. PT IS ALERT/ORIENTED X 3 WITH EPISODES OF CONFUSION AND VERBALLY RESPONSIVE. ON O2 AT 2L/MIN VIA N/C AND PT TOLERATED WELL. IV ACCESS ON CARON MID LINE INTACT AND PATENT. PT HAS PUREWICK DRAINING TO YELLOW COLORED URINE. NO C/O PAIN OR DISCOMFORT. NO ACUTE DISTRESS. ALL SAFETY MEASURES IN PLACE. BED IN LOWEST POSITION AND LOCKED. SIDE RAILS UPX3. WILL CONTINUE TO MONITOR THROUGHOUT THE SHIFT.
--- NOTE | 2023-01-31 19:38 | NUR ---
CURTAIN FRAMER CLOSING NOTE PATIENT IN BED SLEEPING. ALERT ORIENTED X3 WITH CONFUSION. IV ACCESS ON CARON MID LINE INTACT AND PATENT. PUREWICK IN PLACE. ALL DUE MEDS GIVEN AND PATIENT KEPT CLEAN AND COMFORTABLE. SAFETY MEASURE IMPLEMENT BED IN LOW POSITION AND LOCKED,CALL LIGHT WITHIN REACH. CONTINUE ENDORSE TO ONCOMING SHIFT FOR JAYJAY. Addendum: 01/31/23 at 1940 by MONSTER LECHUGA RN PATIENT WITH NC AT 2L. ON TELE MONITOR READING AFIB 106.
[2023-01-31 20:00] VITALS: BP 116/52
[2023-01-31] MEDS: CEFTRIAXONE 1 G in IV D5W 50 ML IV SCH (20:47)
[2023-01-31] MEDS: TRAZODONE 50 MG TABLET PO SCH (21:35)
[2023-01-31] MEDS: QUETIAPINE FUMARATE 25 MG TABLET PO SCH (21:35)
[2023-01-31] MEDS: ATORVASTATIN 40 MG TABLET PO SCH (21:35)
--- NOTE | 2023-01-31 22:30 | NUR ---
RCVD PT ON 2L NC AND PLACED ON NOC BIPAP 15/5 ,RATE 16, FIO2 30%. BIPAP PLUGGED INTO RED OUTLET AND ALARMS ON AND AUDIBLE. NO RESPIRATORY DISTRESS NOTED AT THIS TIME. WILL CONTINUE TO MONITOR T/O SHIFT.
[2023-02-01] VITALS: BP 130/67
[2023-02-01] MEDS: *INSULIN REGULAR(HUMULIN R)HUM 100 UNIT/ML VIAL SQ PRN (01:03)
[2023-02-01] MEDS: IPRATROPIUM NEB FS 0.5 MG/2.5 ML AMPUL.NEB IH SCH ×2 (01:19→08:12)
--- NOTE | 2023-02-01 03:40 | NUR ---
PT REQUESTED TO BE OFF BIPAP AND PLACED ON 2L NC. NO RESPIRATORY DISTRESS NOTED. RN SABRINA NOTIFIED.
[2023-02-01 04:00] VITALS: BP 156/66
--- NOTE | 2023-02-01 06:50 | NUR ---
PEN RIDER CLOSING NOTES: PATIENT REMAINS IN BED, SLEEPING BUT EASILY AROUSABLE. PT IS ALERT/ORIENTED X 3 WITH EPISODES OF CONFUSION AND VERBALLY RESPONSIVE. ON O2 AT 2L/MIN VIA N/C AND PT TOLERATED WELL. IV ACCESS ON CARON MID LINE INTACT AND PATENT. PT HAS PUREWICK DRAINING TO YELLOW COLORED URINE. NO C/O PAIN OR DISCOMFORT. NO ACUTE DISTRESS. ALL SAFETY MEASURES IN PLACE. BED IN LOWEST POSITION AND LOCKED. SIDE RAILS UPX3. ALL DUE MEDS GIVEN, KEPT DRTY AND CLEAN, WILL ENDORSE TO AM SHIFT NURSE FOR CONTINUITY OF CARE.
--- NOTE | 2023-02-01 07:10 | NUR ---
RN OPEN TELE NOTE: ALERT TO NAME AND TIME. REORIENTED TO PLACE. MOIST ORAL MUCOSA. ON 2 LPER MINUTE NASAL CANNULA. UNLABORED BREATHING. CARDICA MONITOR A.FIB 91. IV ON LEFT UPPER MIDLINE PATENT. PURE WICK ON WITH YELLOW URINE. HOB ELEVATED. BILATERAL HALF SIDE RAILS UP X2. BED IN LOW POSITION, LOCKED, EXIT ALARM ON. CALL LIGHT IN REACH. DENIES PAIN OR DISCOMFORT.
[2023-02-01] MEDS: BLOOD SUGAR DIAGNOSTIC 1 EACH STRIP IN SCH (07:56)
[2023-02-01 08:00] VITALS: BP 115/59
[2023-02-01] MEDS: LEVOTHYROXINE SODIUM 75 MCG TABLET PO SCH (08:03)
[2023-02-01] MEDS: PANTOPRAZOLE 40 MG TABLET.DR PO SCH (08:03)
[2023-02-01] MEDS: BUDESONIDE RESPULE INH 0.5 MG/2 ML AMPUL.NEB IH SCH (08:12)
[2023-02-01] MEDS: ARIPIPRAZOLE 5 MG TABLET PO SCH (08:54)
[2023-02-01] MEDS: CALCIUM CARB 250MG /VITAMIN D 1 UDTAB PO SCH (08:55)
[2023-02-01] MEDS: AMIODARONE HCL 200 MG TABLET PO SCH (08:55)
[2023-02-01] MEDS: CARVEDILOL 6.25 MG TABLET PO SCH (08:55)
[2023-02-01] MEDS: ASPIRIN 81 MG TAB.CHEW PO SCH (08:55)
[2023-02-01 08:56] VITALS: BP 115/59
[2023-02-01] MEDS: DULOXETINE HCL 30 MG CAPSULE.DR PO SCH (08:56)
[2023-02-01] MEDS: MULTIVIT W/MINERALS 1 TAB TABLET PO SCH (08:56)
[2023-02-01] MEDS: DOCUSATE SODIUM 100 MG CAPSULE PO SCH (08:56)
[2023-02-01] MEDS: SENNOSIDES 8.6 MG TABLET PO SCH (08:56)
[2023-02-01] MEDS: DILTIAZEM HCL CD 120 MG PO SCH (08:56)
[2023-02-01] MEDS: TRIHEXYPHENIDYL HCL 2 MG TABLET PO SCH (08:57)
[2023-02-01] MEDS: FAMOTIDINE (20 MG) 20 MG TABLET PO SCH (08:57)
[2023-02-01] MEDS: DIGOXIN 0.125 MG TABLET PO SCH (08:57)
[2023-02-01] MEDS: buPROPion SR 100 MG TABLET.ER PO SCH (08:58)
[2023-02-01] MEDS: APIXABAN 5 MG TABLET PO SCH (08:59)
[2023-02-01] MEDS: FLUTICASONE/VILANTEROL 1 EACH BLST.W.DEV IH SCH (09:06)
--- NOTE | 2023-02-01 10:49 | NUR ---
REPORT GIVEN TO RAQUEL VELÁZQUEZ. PATIENT TO BE DISCHARGED TO [facility] .
--- NOTE | 2023-02-01 11:16 | NUR ---
NO RESPONSIBLE [employer] TO NOTIFY AVAILABLE.
--- NOTE | 2023-02-01 11:55 | NUR ---
LEFT UPPER ARM MIDLINE REMOVED, NO S/S OF COMPLICATIONS. PATIENT IS ALERT TO NAME TIME AND PLACE, AWARE PATIENT IS GOING TO [facility]. ON 02 2 LPM NC SATING AT 99%. DENIES PAIN OR DISCOMFORT. [facility] HERE, REPORT GIVEN. NO BELONGINGS. BIPAP EQUIPMENT GIVEN TO AMBULANCE AUDIO PRODUCTION MANAGER TO TAKE WITH PATIENT. PATIENT DISCHARGED ORDERED.
== END 2023-02-01 12:00 | DRG 291 ==
LOC: ER 19:57 → ICU 22:42 → TELE1 01-28 15:04 → TELE-TD 01-28 15:13 → TELE1 01-29 16:06
PROVIDERS: ADMIT Student in an Organized Health Care Education/Training Program; ATTEND Nurse Practitioner Acute Care
PROC: 5A09357 Assistance with Respiratory Ventilation, Less than 24 Consecutive Hours, Continuous Positive Airway Pressure (ICD-10-PCS; principal; 2023-01-25)
PROC: 05HC33Z Insertion of Infusion Device into Left Basilic Vein, Percutaneous Approach (ICD-10-PCS; 2023-01-26)
DX: I13.0 Hypertensive heart and chronic kidney disease with heart failure and stage 1 through stage 4 chronic kidney disease, or unspecified chronic kidney disease (principal); G92.8 Other toxic encephalopathy; I50.23 Acute on chronic systolic (congestive) heart failure; J96.01 Acute respiratory failure with hypoxia; J96.02 Acute respiratory failure with hypercapnia; J44.1 Chronic obstructive pulmonary disease with (acute) exacerbation; I48.20 Chronic atrial fibrillation, unspecified; E87.1 Hypo-osmolality and hyponatremia; J98.11 Atelectasis; I34.0 Nonrheumatic mitral (valve) insufficiency; I27.20 Pulmonary hypertension, unspecified; E11.22 Type 2 diabetes mellitus with diabetic chronic kidney disease; E11.65 Type 2 diabetes mellitus with hyperglycemia; E78.5 Hyperlipidemia, unspecified; E87.5 Hyperkalemia; E87.6 Hypokalemia; F32.9 Major depressive disorder, single episode, unspecified; I42.9 Cardiomyopathy, unspecified; I70.0 Atherosclerosis of aorta; K21.9 Gastro-esophageal reflux disease without esophagitis; K40.20 Bilateral inguinal hernia, without obstruction or gangrene, not specified as recurrent; K59.00 Constipation, unspecified; N18.9 Chronic kidney disease, unspecified; T38.0X5A Adverse effect of glucocorticoids and synthetic analogues, initial encounter; Y92.129 Unspecified place in nursing home as the place of occurrence of the external cause; Z79.01 Long term (current) use of anticoagulants; Z79.51 Long term (current) use of inhaled steroids; Z79.82 Long term (current) use of aspirin; K31.89 Other diseases of stomach and duodenum; Z79.899 Other long term (current) drug therapy; Z87.891 Personal history of nicotine dependence; Z91.199 Patient's noncompliance with other medical treatment and regimen due to unspecified reason; Z88.8 Allergy status to other drugs, medicaments and biological substances; Z88.5 Allergy status to narcotic agent; Z91.013 Allergy to seafood; Z20.822 Contact with and (suspected) exposure to COVID-19
CPT/HCPCS: 36415; 36600; 71045-TC; 76770-TC; 80048-TC; 80053-TC; 80076-TC; 81001; 82570-TC; 82803-TC; 82962-TC; 83735-TC; 83880; 84100-TC; 84300-TC; 84443-TC; 84484-TC; 85025-TC; 87081-TC; 93307-TC; 94799-TC; 97112-TC; 97116-TC; 97530-TC; A4223; C9803; G0378; J0456; J0696; J1630; J1650; J1815; J1940; J2060; J2920; J2930; J3475; J3490; J7050; J7060; Q9967

== ENCOUNTER 2023-02-12 20:08 | Inpatient (IN) | payer OTHER ==
[~2023-02-12] VITALS: Ht 167.6 cm; Wt 73.5 kg
[~2023-02-12 20:08] MED LIST changes: +ACET-868 PO; -ALBU18HF2 INH; +ALBU2.5V38 IH; -ALPR0.25 PO; +AMIO200T5 PO; -AMLO2.5T2 PO; +ASPI-1169 PO; +BISA10SU11 RC; -BUDE0.25 NEB; +BUDE0.5A4 IH; -BUSP5TAB3 PO; +CALC1TAB30 PO; +DILT-32 PO; +DOCU-141 PO; +FAMO20TA8 PO; +FLUT12AE15 IH; -FLUT16SP BNOSTRILS; -FURO40TA5 PO; -GABA-532 PO; +HYDR-3980 PO; +HYDR-4076 PO; -Hydrocodone/Apap 5/325MG PO; +INSU100V27 SQ; -INSU100V28 SQ; -IPRA0.2S9 NEB; +LOPE2TAB25 PO; -LOSA25TA27 PO; +MAGN400O6 PO; +MELA5TAB PO; -METH500T6 PO; -METO200T49 PO; +METO25TA4 PO; -METO50TA7 PO; -MOME13HF2 INH; +MULT-447 PO; +NA P133E RC; -PRED5TAB PO; +SENN-261 PO; -SPIR25TA PO; -TRAZ-252 PO; +TRIH2TAB3 PO; -baby aspirin PO
--- NOTE | 2023-02-12 20:20 | NUR ---
MILLER FROM [facility] FOR SOB SATTING 80'S ROOM AIR, ON CPAP SATTING 100% GIVEN 2 ALBUTEROL CERTIFIED SURGICAL ASSISTANT. CONNECTED TO CPAP WITH SETTINGS 15/5 RATE- 12, FIO2- 60% SATING AT 100%.
[2023-02-12] MEDS ORDERED: IPRATROPIUM NEB FS 0.5 MG/2.5 ML AMPUL.NEB NEB ONE (20:30)
[2023-02-12] MEDS ORDERED: methylPREDNISolone SOD SUCC 125 MG/2ML VIAL IV ONE (20:30)
[2023-02-12] MEDS ORDERED: ALBUTEROL FS 2.5 MG/3 ML VIAL.NEB CONTNEB ONE (20:30)
--- NOTE | 2023-02-12 20:30 | NUR ---
IFC INSERTED ASEPTICALLY, 16FR X 10ML. PROCEDURE TOLERATED WELL. URINE SPECIMEN SENT TO LAB.
--- NOTE | 2023-02-12 20:30 | NUR ---
COVID SWAB DONE AND SENT TO LAB
--- NOTE | 2023-02-12 20:35 | NUR ---
OUTREACH SPECIALIST AT BEDSIDE
[2023-02-12] MEDS ORDERED: IPRATROPIUM NEB FS 0.5 MG/2.5 ML AMPUL.NEB ONE (20:36)
[2023-02-12] MEDS ORDERED: ALBUTEROL FS 2.5 MG/3 ML VIAL.NEB ONE (20:36)
--- NOTE | 2023-02-12 20:44 | NUR ---
EKG AT BEDSIDE
--- NOTE | 2023-02-12 20:55 | NUR ---
PT IS MORE ALERT AND ASKING QUESTIONS. SATS 100% ON BIPAP WITH SETTING:RATE 12, FIO2 60%, IPAP 15, EPAP 5
[2023-02-12] MEDS ORDERED: methylPREDNISolone SOD SUCC 125 MG/2ML VIAL ONE (20:58)
--- NOTE | 2023-02-12 21:00 | NUR ---
IV YURIY G22 INSERTED ON LEFT WRIST.
[2023-02-12 21:23] LABS: ABG BASE EXCESS 2.4 mmol/L; ABG PCO2 59.5 mmHg (35.0-45.0); ABG PH 7.319 (7.350-7.450); ABG PO2 131.3 mmHg (75.0-100.0); COHb 0.4 % (0.5-1.5); MetHb 0.3 % (0.0-1.5); O2Hb 97.7 % (94.0-97.0); SITE, ABG Right Brachial; VENT MODE, BG st 12 15/5 60%
[2023-02-12 21:38] LABS: BASOPHILS # (AUTO) 0.1 K/uL (0.0-0.2); BASOPHILS % (AUTO) 0.4 % (0.0-2.0); EOSINOPHILS % (AUTO) 1.4 % (0.0-6.0); HEMATOCRIT 45 % (33-45); LYMPHOCYTES # (AUTO) 0.8 K/uL (0.8-4.8); LYMPHOCYTES % (AUTO) 4.4 % (20.0-44.0); MEAN CORPUSCULAR HGB CONC 31 g/dl (31.0-36.0); MEAN CORPUSCULAR VOLUME 96 fL (82-100); MONOCYTES # (AUTO) 0.6 K/uL (0.1-1.30); NEUTROPHILS # (AUTO) 17.1 K/uL (1.8-8.9); NEUTROPHILS % (AUTO) 90.8 % (43.0-81.0); PLATELET COUNT (AUTO) 238 K/uL (150-450); RED BLOOD CELL COUNT(AUTO) 4.66 MIL/uL (4.0-5.2); WHITE BLOOD COUNT (AUTO) 18.8 K/uL (4.3-11.0)
[2023-02-12 21:56] LABS: ALANINE AMINOTRANSFERASE 34 U/L (12-78); ALBUMIN 3.3 g/dL (3.4-5.0); ALKALINE PHOSPHATASE 98 U/L (46-116); ASPARTATE AMINOTRANSFERASE 18 U/L (15-37); BILIRUBIN,DIRECT 0.1 mg/dL (0.0-0.2); BILIRUBIN,TOTAL 0.5 mg/dL (0.2-1.0); CALCIUM, SERUM 9.2 mg/dL (8.5-10.1); CARBON DIOXIDE 31 mmol/L (21-32); CHLORIDE 99 mmol/L (98-107); CREATININE 0.8 mg/dL (0.6-1.3); POTASSIUM 4.9 mmol/L (3.5-5.1); SODIUM SERUM 135 mmol/L (136-145); TOTAL PROTEIN, SERUM 6.5 g/dL (6.4-8.2); UREA NITROGEN, BLOOD 12 mg/dL (7-18)
[2023-02-12 22:01] LABS: GLUCOSE 373 mg/dL (74-106)
--- NOTE | 2023-02-12 22:03 | NUR ---
RECEIVED CRITICAL RESULT FROM MONSE (LAB) BS 373, LACTIC ACID 3.3
[2023-02-12 22:07] LABS: BILIRUBIN,URINE NEGATIVE (NEGATIVE); COLOR,URINE YELLOW (YELLOW); LEUKOCYTE ESTERASE ,URINE NEGATIVE (NEGATIVE); NITRITE, URINE NEGATIVE (NEGATIVE); PROTEIN,URINE NEGATIVE (NEGATIVE); UGLUCOSE 3+ mg/dL (NEGATIVE); UROBILINOGEN,URINE 0.2 EU/dL (0.2)
[2023-02-12 22:22] LABS: BACTERIA,URINE Few /HPF (None Seen); RBC,URINE 0-2 /HPF (0-2); WBC,URINE 0-2 /HPF (0-3)
[2023-02-12] MEDS ORDERED: ALBUTEROL FS 2.5 MG/0.5 ML VIAL.NEB NEB PRN (22:30)
[2023-02-12] MEDS ORDERED: hydrALAZINE HCL IV 20 MG VIAL IV PRN (22:30)
[2023-02-12] MEDS ORDERED: ONDANSETRON HCL/PF 4 MG/2 ML VIAL IVP PRN (22:30)
[2023-02-12] MEDS ORDERED: DEXTROSE 50%-WATER 50 ML DISP.SYRIN IV PRN (22:30)
[2023-02-12] MEDS ORDERED: ACETAMINOPHEN 325 MG TABLET PO PRN ×3 (22:30→23:00)
--- NOTE | 2023-02-12 22:33 | NUR ---
#2 IV YURIY G20 INSERTED ON RIGHT WRIST. BLOOD DRAWN FOR TROP
--- NOTE | 2023-02-12 22:46 | NUR ---
Lenin delarosa in [facility] - 02/12/23 at 2246 by GURU REPORT GIVEN TO EBER KC
[2023-02-12] MEDS ORDERED: MAGNESIUM HYDROXIDE 30 ML UDC PO PRN (23:00)
[2023-02-12] MEDS ORDERED: BISACODYL SUPP (10 MG) 10 MG/SUPP.RECT SUPP.RECT RC PRN (23:00)
--- NOTE | 2023-02-12 23:25 | NUR ---
REPORT GIVEN TO EBER BARNES
--- NOTE | 2023-02-12 23:56 | NUR ---
TRANSFERRED TO ICU VIA ACLS PROTOCOL. PT WAS PLACED ON NRB AT 15.
[2023-02-13] VITALS (24 sets, daily range): BP systolic 83–145; BP diastolic 47–118
[2023-02-13] MEDS ORDERED: CEFEPIME 2 GM in IV D5W 100 ML IV SCH ×2
[2023-02-13] MEDS: BLOOD SUGAR DIAGNOSTIC 1 EACH STRIP VI SCH ×5 (00:24→21:10)
[2023-02-13] MEDS ORDERED: IV NS 0.9% 250 ML IV PRN (00:30)
[2023-02-13] MEDS ORDERED: VANCOMYCIN 1.5 GM in IV D5W 500ml IV ONE (00:30)
[2023-02-13] MEDS ORDERED: CEFEPIME 1 GM VIAL ONE (00:31)
[2023-02-13] MEDS ORDERED: INSULIN REGULAR, HUMAN 100 UNIT/ML 3 ML VIAL ONE (00:32)
[2023-02-13] MEDS ORDERED: VANCOMYCIN 500 MG VIAL ONE (00:34)
[2023-02-13] MEDS: *INSULIN REGULAR(HUMULIN R)HUM 100 UNIT/ML VIAL SQ PRN (00:39)
[2023-02-13] MEDS ORDERED: VANCOMYCIN 1 GM /D5W 250 ML PB IV ONE (01:00)
[2023-02-13 02:33] LABS: BASOPHILS % (AUTO) 0.2 % (0.0-2.0); EOSINOPHILS % (AUTO) 0.1 % (0.0-6.0); HEMATOCRIT 36 % (33-45); HEMOGLOBIN 11.9 g/dL (11.5-14.8); LYMPHOCYTES # (AUTO) 0.4 K/uL (0.8-4.8); LYMPHOCYTES % (AUTO) 3.7 % (20.0-44.0); MEAN CORPUSCULAR HGB CONC 33 g/dl (31.0-36.0); MEAN CORPUSCULAR VOLUME 94 fL (82-100); MONOCYTES # (AUTO) 0.1 K/uL (0.1-1.30); MONOCYTES % (AUTO) 0.5 % (2.0-12.0); NEUTROPHILS # (AUTO) 9.9 K/uL (1.8-8.9); NEUTROPHILS % (AUTO) 95.5 % (43.0-81.0); PLATELET COUNT (AUTO) 202 K/uL (150-450); RED BLOOD CELL COUNT(AUTO) 3.87 MIL/uL (4.0-5.2); WHITE BLOOD COUNT (AUTO) 10.3 K/uL (4.3-11.0)
[2023-02-13 02:53] LABS: ALANINE AMINOTRANSFERASE 30 U/L (12-78); ALBUMIN 2.7 g/dL (3.4-5.0); ALKALINE PHOSPHATASE 83 U/L (46-116); ASPARTATE AMINOTRANSFERASE 12 U/L (15-37); BILIRUBIN,TOTAL 0.5 mg/dL (0.2-1.0); CALCIUM, SERUM 8.5 mg/dL (8.5-10.1); CARBON DIOXIDE 32 mmol/L (21-32); CHLORIDE 99 mmol/L (98-107); CREATININE 0.7 mg/dL (0.6-1.3); MAGNESIUM 1.9 mg/dL (1.8-2.4); PHOSPHORUS 3.6 mg/dL (2.5-4.9); POTASSIUM 4.6 mmol/L (3.5-5.1); SODIUM SERUM 133 mmol/L (136-145); TOTAL PROTEIN, SERUM 5.5 g/dL (6.4-8.2); UREA NITROGEN, BLOOD 16 mg/dL (7-18)
[2023-02-13 03:23] LABS: GLUCOSE 391 mg/dL (74-106)
[2023-02-13 05:31] LABS: ABG BASE EXCESS 5.4 mmol/L; ABG OXYGEN SATURATION 98.5 % (92.0-98.5); ABG PCO2 54.3 mmHg (35.0-45.0); ABG PH 7.386 (7.350-7.450); ABG PO2 132.9 mmHg (75.0-100.0); AaDO2 162.5 mmHg; COHb 0.7 % (0.5-1.5); MetHb 0.2 % (0.0-1.5); O2Hb 97.6 % (94.0-97.0); SITE, ABG Right Brachial
--- NOTE | 2023-02-13 07:05 | NUR ---
RN NOTES RECEIVED PT ON BED, ON BIPAP,ALERT/ CONFUSED, O2 SAT WNL, TOLERATING BIPAP SETTING WELL, ON TELE A.FIB HR IN 80'S , VELAZQUEZ DRAINING TO GRAVITY, IV SITES CDI, SR UP x3, CALL LIGHT WITHIN EASY REACH, BED LOCKED AND IN LOWEST POSITION, CONTINUE TO MONITOR .
[2023-02-13] MEDS: ASPIRIN 81 MG TAB.CHEW PO SCH (08:22)
[2023-02-13] MEDS: ARIPIPRAZOLE 5 MG TABLET PO SCH (08:22)
[2023-02-13] MEDS: buPROPion SR 100 MG TABLET.ER PO SCH ×2 (08:22→16:34)
[2023-02-13] MEDS: FAMOTIDINE (20 MG) 20 MG TABLET PO SCH ×2 (08:23→16:34)
[2023-02-13] MEDS: DIGOXIN 0.125 MG TABLET PO SCH (08:23)
[2023-02-13] MEDS: DULOXETINE HCL 30 MG CAPSULE.DR PO SCH (08:23)
[2023-02-13] MEDS: DOCUSATE SODIUM 100 MG CAPSULE PO SCH ×3 (08:23→16:34)
[2023-02-13] MEDS: LEVOTHYROXINE SODIUM 75 MCG TABLET PO SCH (08:23)
[2023-02-13] MEDS: APIXABAN 5 MG TABLET PO SCH ×2 (08:25→21:09)
[2023-02-13] MEDS: INSULIN REGULAR, HUMAN 100 UNIT/ML 3 ML VIAL SQ PRN ×4 (08:27→21:20)
[2023-02-13] MEDS: CEFEPIME 2 GM in IV D5W 100 ML IV SCH ×2 (08:29→21:06)
[2023-02-13] MEDS ORDERED: AMIODARONE HCL 200 MG TABLET PO SCH (09:00)
[2023-02-13] MEDS ORDERED: DILTIAZEM HCL CD 120 MG PO SCH (09:00)
[2023-02-13] MEDS ORDERED: ALBUTEROL FS 2.5 MG/3 ML VIAL.NEB IH SCH (09:00)
[2023-02-13] MEDS ORDERED: HEPARIN SODIUM, PORCINE 5000 UNITS/1 ML VIAL SQ SCH (09:00)
[2023-02-13] MEDS ORDERED: METOPROLOL SUCCINATE 25 MG TAB.SR.24H PO SCH (09:00)
[2023-02-13] MEDS: POTASSIUM CHLORIDE 20 MEQ TAB.PRT.SR PO SCH ×3 (09:20→11:00)
[2023-02-13] MEDS: FUROSEMIDE 40 MG/4 ML VIAL IV SCH ×3 (09:21→16:34)
[2023-02-13] MEDS: METOPROLOL SUCCINATE 25 MG TAB.SR.24H PO SCH (09:21)
--- NOTE | 2023-02-13 09:38 | NUR ---
WOUND CARE CONSULT: PT PRESENTS WITH RASH TO BUTTOCKS AND PERINEUM, PRESENT ON ADMISSION. RECOMMENDATIONS MADE FOR SKIN PROTECTION. DISCUSSED WITH NURSING STAFF. VELAZQUEZ CATH NOTED. MD IN AGREEMENT WITH PLAN OF CARE.
--- NOTE | 2023-02-13 10:10 | NUR ---
RN NOTES REPORT GIVEN TO DUNG VELÁZQUEZ FOR CONTINUITY OF CARE .
[2023-02-13] MEDS ORDERED: CARV6.252 PO (10:31)
[2023-02-13] MEDS ORDERED: INSU100V30 SQ (10:31)
[2023-02-13] MEDS ORDERED: IPRA0.2S9 IH (10:31)
[2023-02-13] MEDS ORDERED: MAG30ORA PO (10:31)
[2023-02-13] MEDS ORDERED: QUET25TA PO (10:31)
[2023-02-13] MEDS: methylPREDNISolone SOD SUCC 40 MG/ML VIAL IV SCH ×2 (10:40→16:34)
[2023-02-13 11:20] LABS: ABG BASE EXCESS 3.4 mmol/L; ABG OXYGEN SATURATION 33.5 % (92.0-98.5); ABG PCO2 53.9 mmHg (35.0-45.0); ABG PH 7.361 (7.350-7.450); COHb 0.5 % (0.5-1.5); MetHb 0.7 % (0.0-1.5); O2Hb 33.1 % (94.0-97.0); SITE, ABG Other; VENT MODE, BG room air
[2023-02-13] MEDS: IPRATROPIUM NEB FS 0.5 MG/2.5 ML AMPUL.NEB NEB SCH ×5 (11:35→20:23)
[2023-02-13] MEDS: ALBUTEROL HALF STRENGTH 1.25 MG/3 ML VIAL.NEB IH SCH ×2 (13:28→20:23)
[2023-02-13] MEDS: VANCOMYCIN 0.75 GM in IV D5W 250 ML IV SCH (13:32)
--- NOTE | 2023-02-13 16:19 | NUR ---
RN NOTES RECEIVED PT FROM DUNG VELÁZQUEZ FOR CONTINUITY OF CARE .
[2023-02-13] MEDS: CLOTRIMAZOLE/BETAMETASONE DIPROPIONATE 15 GM TUBE TP SCH (16:35)
--- NOTE | 2023-02-13 18:37 | NUR ---
RN NOTES PT CONFUSED, CRIES AND LAUGHS AT TIMES, NO SIGNIFICANT CHANGES NOTED ON THIS SHIFT, WILL ENDORSE TO CATALOGING ASSISTANT NURSE FOR CONTINUITY OF CARE .
--- NOTE | 2023-02-13 19:30 | NUR ---
PT RECEIVED AWAKE, CONFUSED, CRIES AND THEN LAUGHS. CONTROL OPERATOR SHOWS SR. ON RA. O2 SAT IS AT 93%. IV ACCESS ON LFA #[address] SL[address] SAFETY MEASURES IN PLACE. WILL CONTINUE PLAN OF CARE.
--- NOTE | 2023-02-13 20:27 | NUR ---
RT NOTE DUPLICATE ORDER FOR IZA IRENE.
[2023-02-13] MEDS: ATORVASTATIN 40 MG TABLET PO SCH (21:10)
[2023-02-13] MEDS: TRAZODONE 50 MG TABLET PO SCH (21:10)
[2023-02-13] MEDS ORDERED: HALOPERIDOL 1 MG TABLET PO PRN (22:00)
--- NOTE | 2023-02-13 23:43 | NUR ---
RT NOTE PT REFUSING BIPAP. PT AWAKE/ALERT AND RESPONDING TO COMMANDS. PT CURRENTLY ON ROOM AIR. NO RESPIRATORY DISTRESS NOTED. RN DENIA NOTIFIED. WILL MONITOR.
[2023-02-14] VITALS (14 sets, daily range): BP systolic 85–125; BP diastolic 41–84
[2023-02-14] MEDS: IPRATROPIUM NEB FS 0.5 MG/2.5 ML AMPUL.NEB NEB SCH ×6 (01:30→20:25)
[2023-02-14] MEDS: ALBUTEROL HALF STRENGTH 1.25 MG/3 ML VIAL.NEB IH SCH ×4 (01:41→20:25)
--- NOTE | 2023-02-14 02:00 | NUR ---
TRIED TO INSERT IV ACCESS SEVERAL TIMES. UNABLE TO GIVE DOSE OF VANCO. MIDLINE INSERTION REQUESTED. WILL HAVE TO CALL PHARMACY TO ADJUST TIME ONCE IV ACCESS IS AVAILABLE.
--- NOTE | 2023-02-14 06:51 | NUR ---
PT ASLEEP, EASILY AWAKEN. A/OX2. CONFUSED, CRIES AND THEN LAUGHS. TREE EXPERT SHOWS CONTROLLED AFIB. ON RA. O2 SAT IS AT 96%. FOR MIDLINE INSERTION. NEEDS ATTENDED. SAFETY MEASURES MAINTAINED. WILL ENDORSE TO NEXT NURSE ON DUTY FOR CONTINUITY OF CARE.
[2023-02-14] MEDS: buPROPion SR 100 MG TABLET.ER PO SCH ×2 (08:05→17:38)
[2023-02-14] MEDS: ASPIRIN 81 MG TAB.CHEW PO SCH (08:05)
[2023-02-14] MEDS: DULOXETINE HCL 30 MG CAPSULE.DR PO SCH (08:05)
[2023-02-14] MEDS: LEVOTHYROXINE SODIUM 75 MCG TABLET PO SCH (08:06)
[2023-02-14] MEDS: ARIPIPRAZOLE 5 MG TABLET PO SCH (08:06)
[2023-02-14] MEDS: DOCUSATE SODIUM 100 MG CAPSULE PO SCH ×3 (08:06→17:38)
[2023-02-14] MEDS: BLOOD SUGAR DIAGNOSTIC 1 EACH STRIP VI SCH ×4 (08:06→22:05)
[2023-02-14] MEDS: FAMOTIDINE (20 MG) 20 MG TABLET PO SCH ×2 (08:06→17:38)
[2023-02-14] MEDS: DIGOXIN 0.125 MG TABLET PO SCH (08:07)
[2023-02-14] MEDS: METOPROLOL SUCCINATE 25 MG TAB.SR.24H PO SCH (09:00)
[2023-02-14] MEDS: CEFEPIME 2 GM in IV D5W 100 ML IV SCH ×2 (10:33→21:42)
[2023-02-14] MEDS: INSULIN REGULAR, HUMAN 100 UNIT/ML 3 ML VIAL SQ PRN ×2 (10:39→19:12)
[2023-02-14] MEDS: methylPREDNISolone SOD SUCC 40 MG/ML VIAL IV SCH ×2 (10:42→17:38)
[2023-02-14] MEDS: CLOTRIMAZOLE/BETAMETASONE DIPROPIONATE 15 GM TUBE TP SCH ×2 (10:45→17:40)
--- NOTE | 2023-02-14 11:10 | NUR ---
STICK ROLLER NOTES PATIENT RECEIVED FROM ICU IN STABLE CONDITION. PATIENT APPEARS TO BE ANXIOUS AND IS CRYING CONTINUOUSLY. ALERT AND ORIENTED X2. ON ROOM AIR, BREATHING EVEN AND UNLABORED, WITH NO S/S SOB OR RESPIRATOY DISTRESS. IV ACCESS AT CARON MIDLINE. VELAZQUEZ CATHETER IN PLACE DRAINING YELLOW URINE. SAFETY PRECAUTIONS IN PLACE WITH BED IN LOWEST LOCKED POSITION, BED ALARM ON, SIDE RAILS UP X3, AND CALL LIGHT AND TABLE WITHIN REACH. WILL CONTINUE TO MONITOR.
[2023-02-14 11:34] LABS: HEMATOCRIT 36 % (33-45); HEMOGLOBIN 11.8 g/dL (11.5-14.8); LYMPHOCYTES # (AUTO) 0.6 K/uL (0.8-4.8); LYMPHOCYTES % (AUTO) 3.7 % (20.0-44.0); MEAN CORPUSCULAR HGB CONC 33 g/dl (31.0-36.0); MEAN CORPUSCULAR VOLUME 93 fL (82-100); MONOCYTES # (AUTO) 0.8 K/uL (0.1-1.30); MONOCYTES % (AUTO) 4.9 % (2.0-12.0); NEUTROPHILS # (AUTO) 15.1 K/uL (1.8-8.9); NEUTROPHILS % (AUTO) 91.4 % (43.0-81.0); PLATELET COUNT (AUTO) 238 K/uL (150-450); WHITE BLOOD COUNT (AUTO) 16.6 K/uL (4.3-11.0)
[2023-02-14 11:43] LABS: CREATININE 1.1 mg/dL (0.6-1.3); POTASSIUM 4.7 mmol/L (3.5-5.1)
[2023-02-14 11:55] LABS: ALBUMIN 2.8 g/dL (3.4-5.0); BILIRUBIN,TOTAL 0.4 mg/dL (0.2-1.0); TOTAL PROTEIN, SERUM 5.7 g/dL (6.4-8.2)
[2023-02-14] MEDS: APIXABAN 5 MG TABLET PO SCH ×2 (11:59→21:20)
[2023-02-14] MEDS: *INSULIN REGULAR(HUMULIN R)HUM 100 UNIT/ML VIAL SQ PRN ×2 (12:03→22:08)
[2023-02-14] MEDS: VANCOMYCIN 0.75 GM in IV D5W 250 ML IV SCH (12:30)
--- NOTE | 2023-02-14 12:30 | NUR ---
PATIENT CONTINUES TO CRY SINCE BEING TRANSFERRED FROM THE ER. PATIENT APPEARS HIGHLY ANXIOUS.
[2023-02-14] MEDS: VANCOMYCIN 1 GM in IV D5W 250 ML IV SCH (14:14)
--- NOTE | 2023-02-14 19:30 | NUR ---
TELE ULTRASOUND MANAGER OPENING NOTE RECEIVED PATIENT IN BED AWAKE A/O X3, NO SOB NO DISTRESS NOTED, DENIES PAIN AT THIS TIME, VSS STABLE, IV RIGHT UPPER MIDLINE #18 GAUGE, SITE INTACT AND PATENT, NO S/S OF INFILTRATION NOTED, PATIENT VELAZQUEZ FLOWING CLEAR YELLOWISH FLUID, SIDE RAILS UP X2, CALL LIGHT WITHIN REACH WILL CONTINUE TO MONITOR
--- NOTE | 2023-02-14 19:44 | NUR ---
ETHNOGRAPHER CLOSING NOTES PATIENT IN BED WATCHING TV. ALERT AND ORIENTED X2, CRYING AND UNCONSOLABLE. ON ROOM AIR, BREATHING EVEN AND UNLABORED, WITH NO S/S SOB OR RESPIRATORY DISTRESS. ON TELE MONITOR READING CONTROLLED AFIB. IV ACCESS AT CARON MIDLINE. VELAZQUEZ CATHETER IN PLACE DRAINING YELLOW URINE WITH OUTPUT OF 950. ALL DUE MEDS GIVEN AND PATIENT KEPT CLEAN AND COMFORTABLE. PROVIDED SUPPORT AND COMFORT FOR ANXIETY. SAFETY PRECAUTIONS IN PLACE WITH BED IN LOWEST LOCKED POSITION, BED ALARM ON, SIDE RAILS UP X3, AND CALL LIGHT AND TABLE WITHIN REACH. WILL ENDORSE TO ONCOMING SHIFT FOR JAYJAY.
[2023-02-14] MEDS: ATORVASTATIN 40 MG TABLET PO SCH (21:18)
[2023-02-14] MEDS: TRAZODONE 50 MG TABLET PO SCH (21:19)
--- NOTE | 2023-02-14 22:00 | NUR ---
RCVD PT IN ROOM AIR. PLACED PT ON NOC BIPAP 15/5, RATE 12, FIO2 40%. NO RESPIRATORY DISTRESS NOTED. BIPAP PLUGGED INTO RED OUTLET, ALARM Addendum: 02/15/23 at 0017 by NICK KINNEY RT ALARM ON AND AUDIBLE. WILL CONTINUE TO MONITOR T/O SHIFT.
[2023-02-15] MEDS ORDERED: ALBUTEROL FS 2.5 MG/0.5 ML VIAL.NEB NEB PRN
--- NOTE | 2023-02-15 00:17 | NUR ---
PT REMOVED BIPAP AND REFUSED TO PLACED IT BACK. RN HILARIA AWARE. NO RESPIRATORY DISTRESS NOTED AT THIS TIME. WILL CONTINUE TO MONITOR T/O SHIFT
[2023-02-15] MEDS: IPRATROPIUM NEB FS 0.5 MG/2.5 ML AMPUL.NEB NEB SCH ×4 (00:52→19:59)
[2023-02-15] MEDS: ALBUTEROL HALF STRENGTH 1.25 MG/3 ML VIAL.NEB IH SCH ×4 (00:52→19:59)
[2023-02-15 00:53] VITALS: BP 116/57
[2023-02-15] MEDS: VANCOMYCIN 1 GM in IV D5W 250 ML IV SCH ×2 (01:08→12:56)
[2023-02-15 05:46] VITALS: BP 117/63
--- NOTE | 2023-02-15 06:30 | NUR ---
TELE BLUEPRINT CUTTER CLOSING NOTES PATIENT IN BED. ALERT AND ORIENTED X2, CRYING. ON ROOM AIR, BREATHING EVEN AND UNLABORED, WITH NO S/S SOB OR RESPIRATORY DISTRESS. ON TELE MONITOR READING CONTROLLED AFIB. IV ACCESS AT CARON MIDLINE. VELAZQUEZ CATHETER IN PLACE DRAINING YELLOWISH URINE. ALL DUE MEDS GIVEN AND PATIENT KEPT CLEAN AND COMFORTABLE. PROVIDED SUPPORT AND COMFORT FOR ANXIETY. SAFETY PRECAUTIONS IN PLACE WITH BED IN LOWEST LOCKED POSITION, BED ALARM ON, SIDE RAILS UP X3, AND CALL LIGHT AND TABLE WITHIN REACH. WILL ENDORSE TO AM SHIFT FOR JAYJAY.
[2023-02-15 07:23] LABS: BASOPHILS % (AUTO) 0.1 % (0.0-2.0); HEMATOCRIT 38 % (33-45); HEMOGLOBIN 12.5 g/dL (11.5-14.8); LYMPHOCYTES # (AUTO) 0.6 K/uL (0.8-4.8); LYMPHOCYTES % (AUTO) 4.2 % (20.0-44.0); MEAN CORPUSCULAR HGB CONC 33 g/dl (31.0-36.0); MEAN CORPUSCULAR VOLUME 93 fL (82-100); MONOCYTES % (AUTO) 6.3 % (2.0-12.0); NEUTROPHILS # (AUTO) 13.4 K/uL (1.8-8.9); NEUTROPHILS % (AUTO) 89.4 % (43.0-81.0); PLATELET COUNT (AUTO) 207 K/uL (150-450); RED BLOOD CELL COUNT(AUTO) 4.08 MIL/uL (4.0-5.2); WHITE BLOOD COUNT (AUTO) 15.1 K/uL (4.3-11.0)
--- NOTE | 2023-02-15 07:33 | NUR ---
SURGICAL DRESSING MAKER OPENING NOTES PATIENT RECEIVED IN BED. ALERT AND ORIENTED X2, CRYING. ON ROOM AIR, BREATHING EVEN AND UNLABORED, WITH NO S/S SOB OR RESPIRATORY DISTRESS. ON TELE MONITOR READING CONTROLLED AFIB. IV ACCESS AT CARON MIDLINE. VELAZQUEZ CATHETER IN PLACE DRAINING YELLOWISH URINE. ALL DUE MEDS GIVEN AND PATIENT KEPT CLEAN AND COMFORTABLE. PROVIDED SUPPORT AND COMFORT FOR ANXIETY. SAFETY PRECAUTIONS IN PLACE WITH BED IN LOWEST LOCKED POSITION, BED ALARM ON, SIDE RAILS UP X3, AND CALL LIGHT AND TABLE WITHIN REACH. WILL ENDORSE TO AM SHIFT FOR JAYJAY. Addendum: 02/15/23 at 0735 by MONSTER LECHUGA RN PLEASE DISREGARD. THIS IS NOT TODAY'S OPENING NOTE.
--- NOTE | 2023-02-15 07:35 | NUR ---
HOME ECONOMIST OPENING NOTES PATIENT RECEIVED IN BED AWAKE AND CRYING. ALERT AND ORIENTED X2. ON ROOM AIR, BREATHING EVEN AND UNLABORED, WITH NO S/S SOB OR RESPIRATORY DISTRESS. ON TELE MONITOR. IV ACCESS AT CARON MIDLINE. VELAZQUEZ CATHETER IN PLACE DRAINING YELLOWISH URINE. SAFETY PRECAUTIONS IN PLACE WITH BED IN LOWEST LOCKED POSITION, BED ALARM ON, SIDE RAILS UP X3, AND CALL LIGHT AND TABLE WITHIN REACH. WILL CONTINUE TO MONITOR.
[2023-02-15 07:43] LABS: CALCIUM, SERUM 8.8 mg/dL (8.5-10.1); CREATININE 0.7 mg/dL (0.6-1.3); MAGNESIUM 2.3 mg/dL (1.8-2.4); PHOSPHORUS 3.2 mg/dL (2.5-4.9); POTASSIUM 4.4 mmol/L (3.5-5.1)
[2023-02-15 08:00] VITALS: BP 151/71
[2023-02-15] MEDS: BLOOD SUGAR DIAGNOSTIC 1 EACH STRIP VI SCH ×4 (08:06→21:11)
[2023-02-15] MEDS: INSULIN REGULAR, HUMAN 100 UNIT/ML 3 ML VIAL SQ PRN ×3 (08:07→17:44)
[2023-02-15] MEDS: ARIPIPRAZOLE 5 MG TABLET PO SCH (08:15)
[2023-02-15] MEDS: ASPIRIN 81 MG TAB.CHEW PO SCH (08:16)
[2023-02-15] MEDS: FAMOTIDINE (20 MG) 20 MG TABLET PO SCH ×2 (08:16→16:10)
[2023-02-15] MEDS: LEVOTHYROXINE SODIUM 75 MCG TABLET PO SCH (08:16)
[2023-02-15] MEDS: DOCUSATE SODIUM 100 MG CAPSULE PO SCH ×3 (08:16→16:10)
[2023-02-15] MEDS: DULOXETINE HCL 30 MG CAPSULE.DR PO SCH (08:16)
[2023-02-15] MEDS: METOPROLOL SUCCINATE 25 MG TAB.SR.24H PO SCH (08:16)
[2023-02-15] MEDS: buPROPion SR 100 MG TABLET.ER PO SCH ×2 (08:16→16:10)
[2023-02-15] MEDS: DIGOXIN 0.125 MG TABLET PO SCH (08:17)
[2023-02-15] MEDS: methylPREDNISolone SOD SUCC 40 MG/ML VIAL IV SCH (08:17)
[2023-02-15] MEDS: APIXABAN 5 MG TABLET PO SCH ×2 (08:20→20:59)
[2023-02-15] MEDS: CEFEPIME 2 GM in IV D5W 100 ML IV SCH ×2 (08:22→20:57)
[2023-02-15] MEDS: CLOTRIMAZOLE/BETAMETASONE DIPROPIONATE 15 GM TUBE TP SCH ×2 (09:10→16:56)
[2023-02-15 12:00] VITALS: BP 130/60
[2023-02-15 16:00] VITALS: BP 110/57
--- NOTE | 2023-02-15 17:30 | NUR ---
PATIENT ACCU CHECK 416. GIVEN 15 UNITS OF INSULIN. HORACIO ORTIZ SHELTERED WORKSHOP WORKER NOTIFIED.
--- NOTE | 2023-02-15 18:38 | NUR ---
SALAD COUNTER ATTENDANT CLOSING NOTES PATIENT IN BED AWAKE AND CRYING. ALERT AND ORIENTED X3 WITH EPISODES OF CONFUSION AND CRYING. ON ROOM AIR SATING AT 100%. BREATHING EVEN AND UNLABORED, WITH NO S/S SOB OR RESPIRATORY DISTRESS. ON TELE MONITOR READING AFIB 89. IV ACCESS AT CARON MIDLINE. VELAZQUEZ CATHETER IN PLACE DRAINING YELLOW COLORED URINE. ALL DUE MEDS GIVEN AND PATIENT KEPT CLEAN AND COMFORTABLE. SAFETY PRECAUTIONS IN PLACE WITH BED IN LOWEST LOCKED POSITION, BED ALARM ON, SIDE RAILS UP X3, AND CALL LIGHT AND TABLE WITHIN REACH. WILL ENDORSE TO ONCOMING SHIFT FOR JAYJAY.
--- NOTE | 2023-02-15 18:52 | NUR ---
PATIENT BECOMING INCREASINGLY AGITATED. PATIENT BEGAN SHOUTING AND THREW HER CALL LIGHT.
--- NOTE | 2023-02-15 19:15 | NUR ---
RN NOTE Report received from Audrey VELÁZQUEZ, patient in bed, AAO x 2-3 with confusion requiring reorientation. Patient in no acute distress, saturation 98% on room air, Afib on the monitor, HR is 89. CARON midline patent and flushing well, saline locked. Steele catheter draining to a clear, yellow output. Safety measures in place, bed is locked and at lowest position, bed alarm on, HOB elevated, call light within reach of patient. Will continue to monitor and reassess.
[2023-02-15 20:00] VITALS: BP 114/74
[2023-02-15] MEDS: TRAZODONE 50 MG TABLET PO SCH (21:00)
[2023-02-15] MEDS: ATORVASTATIN 40 MG TABLET PO SCH (21:00)
[2023-02-15] MEDS: *INSULIN REGULAR(HUMULIN R)HUM 100 UNIT/ML VIAL SQ PRN (21:16)
--- NOTE | 2023-02-15 22:15 | NUR ---
ATTEMPTED TO PLACE NOC BIPAP , PT REFUSED . NO RESPIRATORY DISTRESS NOTED , EBER GRIFFIN NOTIFIED.
[2023-02-16] VITALS: BP 114/68
[2023-02-16] MEDS: VANCOMYCIN 1 GM in IV D5W 250 ML IV SCH (01:00)
[2023-02-16] MEDS: IPRATROPIUM NEB FS 0.5 MG/2.5 ML AMPUL.NEB NEB SCH ×3 (01:51→13:38)
[2023-02-16] MEDS: ALBUTEROL HALF STRENGTH 1.25 MG/3 ML VIAL.NEB IH SCH ×3 (01:51→13:38)
--- NOTE | 2023-02-16 02:08 | NUR ---
RN NOTE Vancomycin non administered, vanco trough level 22. Will inform pharmacy
[2023-02-16 04:00] VITALS: BP 116/71
--- NOTE | 2023-02-16 06:45 | NUR ---
RN NOTE Vanco trough at 0000 resulted 22. [facility] notified.
[2023-02-16 06:46] LABS: CARBON DIOXIDE 35 mmol/L (21-32); CHLORIDE 100 mmol/L (98-107); CREATININE 0.7 mg/dL (0.6-1.3); GLUCOSE 141 mg/dL (74-106); POTASSIUM 4.1 mmol/L (3.5-5.1); SODIUM SERUM 139 mmol/L (136-145); UREA NITROGEN, BLOOD 18 mg/dL (7-18)
[2023-02-16] MEDS: BLOOD SUGAR DIAGNOSTIC 1 EACH STRIP VI SCH ×2 (07:44→12:05)
--- NOTE | 2023-02-16 07:47 | NUR ---
REGULATORY AFFAIRS ANALYST OPENING NOTE RECEIVED patient in bed, AAO x 2-3 with confusion requiring reorientation. Patient in no acute distress, AT THIS TIME. CONTROLLED AFIB 80 on the monitor AT THIS TIME. CARON midline patent and flushing well, saline locked. Steele catheter draining to a clear, yellow output. ALL Safety measures in place, bed is locked and at lowest position, bed alarm on, HOB elevated, call light within reach of patient.
[2023-02-16 08:00] VITALS: BP 120/90
[2023-02-16] MEDS: CEFEPIME 2 GM in IV D5W 100 ML IV SCH (08:07)
[2023-02-16] MEDS: LEVOTHYROXINE SODIUM 75 MCG TABLET PO SCH (08:07)
[2023-02-16] MEDS: DOCUSATE SODIUM 100 MG CAPSULE PO SCH ×3 (08:08→13:00)
[2023-02-16] MEDS: ARIPIPRAZOLE 5 MG TABLET PO SCH (08:08)
[2023-02-16] MEDS: ASPIRIN 81 MG TAB.CHEW PO SCH (08:08)
[2023-02-16] MEDS: DULOXETINE HCL 30 MG CAPSULE.DR PO SCH (08:08)
[2023-02-16] MEDS: FAMOTIDINE (20 MG) 20 MG TABLET PO SCH (08:08)
[2023-02-16] MEDS: buPROPion SR 100 MG TABLET.ER PO SCH (08:09)
[2023-02-16] MEDS: APIXABAN 5 MG TABLET PO SCH (08:11)
[2023-02-16] MEDS ORDERED: methylPREDNISolone SOD SUCC 40 MG/ML VIAL IV SCH (09:00)
[2023-02-16] MEDS: DIGOXIN 0.125 MG TABLET PO SCH (09:55)
[2023-02-16] MEDS ORDERED: ATOR40TA PO (10:20)
[2023-02-16] MEDS ORDERED: METH4TAB17 PO (10:20)
[2023-02-16] MEDS: METOPROLOL SUCCINATE 25 MG TAB.SR.24H PO SCH (11:06)
[2023-02-16 12:00] VITALS: BP 128/59
[2023-02-16] MEDS: INSULIN REGULAR, HUMAN 100 UNIT/ML 3 ML VIAL SQ PRN (12:48)
[2023-02-16] MEDS ORDERED: VANCOMYCIN 0.75 GM in IV D5W 250 ML IV SCH (13:00)
--- NOTE | 2023-02-16 13:39 | NUR ---
RN NOTE CALLED [facility] AT [phone]. ATTEMPTED TO GIVE REPORT, COLORIST DYER SAID UNABLE TO TAKE FULL REPORT OVER PHONE AND SEND DISCHARGE PAPERWORK
--- NOTE | 2023-02-16 15:08 | NUR ---
CLAY PUDDLER NOTE PT LEFT IN STABLE CONDITION. REMOVED MIDLINE AND VELAZQUEZ CATHETHER.WENT OVER DISCHARGE INSTRUCTIONS AND PT VERBALIZED UNDERSTANDING MEDICATIONS. PT HAS NO BELONGINS EXCEPT LEGAL PAD AND PEN/. PT QUESTIONING THAT PHARMACY HAS MEDICATIONS. CALLED PHARMACY, [employer] SAID PT DOESNT HAVE ANY MEDICATIONS. PICKED UP BY AMBULANCE TEAM AND TAKEN TO [facility].
== END 2023-02-16 15:08 | DRG 871 ==
LOC: ER 20:10 → ICU 22:56 → TELE1 02-14 11:05
PROVIDERS: ADMIT Internal Medicine; ATTEND Nurse Practitioner Acute Care
PROC: 5A09357 Assistance with Respiratory Ventilation, Less than 24 Consecutive Hours, Continuous Positive Airway Pressure (ICD-10-PCS; principal; 2023-02-12)
PROC: 05HB33Z Insertion of Infusion Device into Right Basilic Vein, Percutaneous Approach (ICD-10-PCS; 2023-02-14)
DX: A41.9 Sepsis, unspecified organism (principal); I50.33 Acute on chronic diastolic (congestive) heart failure; J96.21 Acute and chronic respiratory failure with hypoxia; J18.9 Pneumonia, unspecified organism; J96.22 Acute and chronic respiratory failure with hypercapnia; I13.0 Hypertensive heart and chronic kidney disease with heart failure and stage 1 through stage 4 chronic kidney disease, or unspecified chronic kidney disease; J44.0 Chronic obstructive pulmonary disease with (acute) lower respiratory infection; J44.1 Chronic obstructive pulmonary disease with (acute) exacerbation; E44.1 Mild protein-calorie malnutrition; R65.20 Severe sepsis without septic shock; Z20.822 Contact with and (suspected) exposure to COVID-19; E11.22 Type 2 diabetes mellitus with diabetic chronic kidney disease; I48.91 Unspecified atrial fibrillation; G20 Parkinson's disease; N18.9 Chronic kidney disease, unspecified; E78.5 Hyperlipidemia, unspecified; K21.9 Gastro-esophageal reflux disease without esophagitis; Z87.440 Personal history of urinary (tract) infections; E11.65 Type 2 diabetes mellitus with hyperglycemia; R41.81 Age-related cognitive decline; F41.9 Anxiety disorder, unspecified; Z88.8 Allergy status to other drugs, medicaments and biological substances; Z88.5 Allergy status to narcotic agent; Z91.013 Allergy to seafood; Z79.4 Long term (current) use of insulin; Z79.01 Long term (current) use of anticoagulants; Z79.82 Long term (current) use of aspirin; Z79.899 Other long term (current) drug therapy; Z79.84 Long term (current) use of oral hypoglycemic drugs; F31.9 Bipolar disorder, unspecified; E88.09 Other disorders of plasma-protein metabolism, not elsewhere classified; E03.9 Hypothyroidism, unspecified; Z79.51 Long term (current) use of inhaled steroids; Z87.891 Personal history of nicotine dependence
CPT/HCPCS: 36415; 36600; 71045-TC; 80048-TC; 80053-TC; 80076-TC; 80202-TC; 81001; 82803-TC; 82962-TC; 83605-TC; 83735-TC; 83880; 84100-TC; 84484-TC; 85025-TC; 85378-TC; 87040-TC; 87081-TC; 93307-TC; 94799-TC; 97110-TC; 97116-TC; 97530-TC; 99082-TC; A4223; C9803; G0378; J0692; J1815; J1940; J2920; J2930; J3370; J7050; J7060

== ENCOUNTER 2023-02-25 05:02 | Inpatient (IN) | payer OTHER ==
[~2023-02-25] VITALS: Ht 157.5 cm; Wt 75.7 kg
[~2023-02-25 05:02] MED LIST changes: -BUDE0.5A4 IH; -CALC1TAB30 PO; +CARV6.252 PO; -FURO20TA4 PO; -GLIP2.5T16 PO; -HYDR-3980 PO; -HYDR-4076 PO; -INSU100V27 SQ; +INSU100V30 SQ; +IPRA0.2S9 IH; -LOPE2TAB25 PO; +MAG30ORA PO; -MELA5TAB PO; -METF-440 PO; +METH4TAB17 PO; -METO25TA4 PO; +QUET25TA PO; -TRIH2TAB3 PO
--- NOTE | 2023-02-25 05:07 | NUR ---
[id number] POST ACT FOR SOB, O2SAT 85% 15L NRB. NORMALLY ON 2L NC NOW 95% O2 ON CPAP
--- NOTE | 2023-02-25 05:08 | NUR ---
RT AT PT'S BEDSIDE
--- NOTE | 2023-02-25 05:19 | NUR ---
COVID ANTIGEN AND MRSA NARES SWAB COLLECTED AND SENT TO LAB
--- NOTE | 2023-02-25 05:21 | NUR ---
PT ON BIPAP SETTINGS IPAP 15 EPAP 5 FIO2 30% TOLERATING WELL AT 99%
--- NOTE | 2023-02-25 05:50 | NUR ---
22G IV STARTED ON R HAND. BLOOD COLLECTED SENT TO LAB
--- NOTE | 2023-02-25 05:51 | NUR ---
RT AT PT'S BEDSIDE FOR ABGS
--- NOTE | 2023-02-25 05:53 | NUR ---
SKILLED NURSING CASE MANAGER AT PT'S BEDSIDE
[2023-02-25 05:58] LABS: BASOPHILS % (AUTO) 0.2 % (0.0-2.0); EOSINOPHILS % (AUTO) 0.8 % (0.0-6.0); HEMATOCRIT 39 % (33-45); HEMOGLOBIN 12.5 g/dL (11.5-14.8); LYMPHOCYTES # (AUTO) 1.2 K/uL (0.8-4.8); LYMPHOCYTES % (AUTO) 7.1 % (20.0-44.0); MEAN CORPUSCULAR HGB CONC 32 g/dl (31.0-36.0); MEAN CORPUSCULAR VOLUME 94 fL (82-100); MONOCYTES # (AUTO) 0.6 K/uL (0.1-1.30); MONOCYTES % (AUTO) 3.7 % (2.0-12.0); NEUTROPHILS # (AUTO) 14.3 K/uL (1.8-8.9); NEUTROPHILS % (AUTO) 88.2 % (43.0-81.0); PLATELET COUNT (AUTO) 271 K/uL (150-450); RED BLOOD CELL COUNT(AUTO) 4.18 MIL/uL (4.0-5.2); WHITE BLOOD COUNT (AUTO) 16.2 K/uL (4.3-11.0)
[2023-02-25 06:13] LABS: CALCIUM, SERUM 9.3 mg/dL (8.5-10.1); CARBON DIOXIDE 33 mmol/L (21-32); CHLORIDE 90 mmol/L (98-107); CREATININE 0.9 mg/dL (0.6-1.3); GLUCOSE 306 mg/dL (74-106); POTASSIUM 4.8 mmol/L (3.5-5.1); SODIUM SERUM 132 mmol/L (136-145); UREA NITROGEN, BLOOD 14 mg/dL (7-18)
--- NOTE | 2023-02-25 06:15 | NUR ---
URINE COLLECTED AND SENT TO LAB
[2023-02-25 06:27] LABS: ALANINE AMINOTRANSFERASE 48 U/L (12-78); ALKALINE PHOSPHATASE 104 U/L (46-116); ASPARTATE AMINOTRANSFERASE 28 U/L (15-37); BILIRUBIN,DIRECT 0.1 mg/dL (0.0-0.2); BILIRUBIN,TOTAL 0.5 mg/dL (0.2-1.0); TOTAL PROTEIN, SERUM 6.2 g/dL (6.4-8.2)
[2023-02-25 06:28] LABS: ABG BASE EXCESS 6.6 mmol/L; ABG PCO2 53.5 mmHg (35.0-45.0); ABG PH 7.405 (7.350-7.450); ABG PO2 70.2 mmHg (75.0-100.0); COHb 0.4 % (0.5-1.5); MetHb 0.3 % (0.0-1.5); O2Hb 93.5 % (94.0-97.0); SITE, ABG Left Radial; VENT MODE, BG BIPAP 15/5
--- NOTE | 2023-02-25 06:31 | NUR ---
ADMISSION REPORT SUBMITTED
[2023-02-25 06:37] LABS: BILIRUBIN,URINE NEGATIVE (NEGATIVE); COLOR,URINE YELLOW (YELLOW); LEUKOCYTE ESTERASE ,URINE 3+ (NEGATIVE); NITRITE, URINE NEGATIVE (NEGATIVE); PROTEIN,URINE NEGATIVE (NEGATIVE); UGLUCOSE NEGATIVE (NEGATIVE); UROBILINOGEN,URINE 0.2 EU/dL (0.2)
--- NOTE | 2023-02-25 06:52 | NUR ---
RT CALLED FOR BREATHING TX
[2023-02-25] MEDS ORDERED: AZITHROMYCIN 500 MG VIAL ONE (06:53)
[2023-02-25 06:55] LABS: BACTERIA,URINE Few /HPF (None Seen); SQUAMOUS EPITHELIAL CELL,UR Rare /HPF (None Seen)
[2023-02-25] MEDS ORDERED: ALBUTEROL FS 2.5 MG/3 ML VIAL.NEB NEB ONE (07:00)
[2023-02-25] MEDS ORDERED: CEFTRIAXONE 1GM BAG (ER ONLY) 50 ML IV ONE (07:00)
[2023-02-25] MEDS ORDERED: AZITHROMYCIN 500 MG in IV D5W 250 ML IV ONE (07:00)
[2023-02-25] MEDS ORDERED: IPRATROPIUM NEB FS 0.5 MG/2.5 ML AMPUL.NEB NEB ONE (07:00)
--- NOTE | 2023-02-25 07:00 | NUR ---
RT AT PT'S BEDSIDE FOR BREATHING TX
[2023-02-25] MEDS ORDERED: LIDOCAINE VISCOUS 2% UD 15 ML UDC ONE (07:12)
--- NOTE | 2023-02-25 07:24 | NUR ---
NG TUBE TO R NARE @60CM. +ASPIRATION CONTENTS +AUSCULTATION. PT TOLERATED WELL. 200ML CONTENTS SUCTIONED. PLACED ON INTERMITTENT SUCTIONING.
[2023-02-25] MEDS ORDERED: LIDOCAINE VISCOUS 2% UD 15 ML UDC MM ONE (07:30)
[2023-02-25] MEDS ORDERED: IOHEXOL-300 100 ML VIAL IV ONE (07:45)
[2023-02-25] MEDS ORDERED: CT SWABBABLE VALVE TRANS SET 1 EA INFUS.SET MC ONE (07:45)
[2023-02-25] MEDS ORDERED: IV NS 0.9% 250 ML IV ONE (07:45)
--- NOTE | 2023-02-25 08:29 | NUR ---
RT TOOK PATIENT OF BIPAP. ON NC 3L O2 SAT AT 97% Addendum: 02/25/23 at 1010 by KEDAR OFF BIPAP*
--- NOTE | 2023-02-25 08:35 | NUR ---
PATIENT TAKEN TO CT VIA LISA
[2023-02-25] MEDS ORDERED: POLYETHYLENE GLYCOL 3350 17 GM POWD.PACK PO PRN (10:30)
[2023-02-25] MEDS: ALBUTEROL HALF STRENGTH 1.25 MG/3 ML VIAL.NEB NEB SCH ×3 (10:30→20:16)
[2023-02-25] MEDS: IPRATROPIUM NEB FS 0.5 MG/2.5 ML AMPUL.NEB NEB SCH ×3 (10:30→20:16)
--- NOTE | 2023-02-25 10:51 | NUR ---
[facility] admitting aware.
[2023-02-25] MEDS ORDERED: BISACODYL SUPP (10 MG) 10 MG/SUPP.RECT SUPP.RECT RC PRN (11:00)
[2023-02-25] MEDS ORDERED: NA PHOS,M-B/NA PHOS,DI-BA 1 EA ENEMA RC PRN (11:00)
[2023-02-25] MEDS ORDERED: IPRATROPIUM NEB FS 0.5 MG/2.5 ML AMPUL.NEB IH PRN (11:00)
--- NOTE | 2023-02-25 11:05 | NUR ---
RT Continuous tx previously given @729. Will resume tx scheduled time
--- NOTE | 2023-02-25 11:20 | NUR ---
report given to Arielle for continuation of care
[2023-02-25] MEDS ORDERED: PRED20TA PO (11:25)
[2023-02-25] MEDS ORDERED: MOME13HF IH (11:25)
[2023-02-25] MEDS ORDERED: LACT10SO3 PO (11:25)
[2023-02-25] MEDS ORDERED: ATOR40TA PO (11:25)
[2023-02-25] MEDS ORDERED: IPRA3AMP23 IH (11:25)
[2023-02-25] MEDS ORDERED: PIPE3.379 IV (11:25)
[2023-02-25] MEDS ORDERED: ASPI-1420 PO (11:25)
[2023-02-25] MEDS ORDERED: INSU100V10 SQ (11:25)
[2023-02-25] MEDS ORDERED: GLUC1KIT IM (11:25)
[2023-02-25] MEDS ORDERED: ZINC56.713 TP (11:25)
--- NOTE | 2023-02-25 11:29 | NUR ---
phlebotomy at bedside
[2023-02-25] MEDS ORDERED: ALBUTEROL HALF STRENGTH 1.25 MG/3 ML VIAL.NEB NEB PRN (11:30)
[2023-02-25] MEDS ORDERED: ONDANSETRON HCL/PF 4 MG/2 ML VIAL IVP PRN (11:30)
[2023-02-25] MEDS ORDERED: Z GUARD REMEDY 4 OZ OINT TP PRN (11:30)
[2023-02-25] MEDS ORDERED: DEXTROSE 50%-WATER 50 ML DISP.SYRIN IV PRN (11:30)
[2023-02-25] MEDS ORDERED: CEFTRIAXONE 1 G in IV D5W 50 ML IV SCH (12:00)
[2023-02-25] MEDS: BLOOD SUGAR DIAGNOSTIC 1 EACH STRIP IN SCH ×3 (12:00→22:10)
--- NOTE | 2023-02-25 12:02 | NUR ---
PATIENT TRANSFERRED PER ACLS PROTOCOL
[2023-02-25 12:29] VITALS: BP 110/59
--- NOTE | 2023-02-25 12:30 | NUR ---
OLIVIA RN NOTE RECEIVED PATIENT FROM ER WITH DX ACUTE RESPIRATORY FAILURE ,ALERT WITH SOME CONFUSION AND FORGETFULNESS, UNDER CARE DNP AMY HERNANDEZ. PLACED ON TELE MONITOR AFIB HR 111, ON 1L NC SATURATION 96% AT THIS TIME, WITH RT N G TUBE TO LOWER INTERMITTED SUCTION, NOTED SMALL AMT YELLOWISH COLOR DRAINAGE, NO SOB NOTED AT THIS TIME, BODY CHECKED DONE ,VS TAKEN, BED IN LOWEST AND LOCKED POSITION, RT WRIST HL AND LT AC HL INTACT AND FLUSHED WELL , WILL CON TO MONITOR CLOSELY
[2023-02-25] MEDS: SORBITOL SOLUTION 70% 30 ML SOLUTION PO SCH ×2 (13:59→16:50)
[2023-02-25] MEDS: LACTULOSE 10 G/15 ML UDC (PYXIS) PO SCH ×3 (13:59→23:51)
[2023-02-25] MEDS: VANCOMYCIN 0.75 GM in IV D5W 250 ML IV SCH (14:00)
--- NOTE | 2023-02-25 14:30 | NUR ---
teleservices representative note per dr sarah Godoy ok to eat ok to d\c low intermitted suction
[2023-02-25 16:00] VITALS: BP 118/53
--- NOTE | 2023-02-25 16:14 | NUR ---
alexandrea torres note per josey pierre to place mid line ,emmanuel rivasu Addendum: 02/25/23 at 1631 by FAHAD LESLIE RN rt upper arm mid line inserted as ordered
[2023-02-25] MEDS: methylPREDNISolone SOD SUCC 40 MG/ML VIAL IV SCH (16:49)
[2023-02-25] MEDS: buPROPion SR 100 MG TABLET.ER PO SCH (16:50)
[2023-02-25] MEDS: APIXABAN 5 MG TABLET PO SCH (16:50)
[2023-02-25] MEDS: FAMOTIDINE (20 MG) 20 MG TABLET PO SCH (16:51)
[2023-02-25] MEDS: AMIODARONE HCL 200 MG TABLET PO SCH (16:51)
[2023-02-25] MEDS: INSULIN REGULAR, HUMAN 100 UNIT/ML 3 ML VIAL SQ PRN (18:05)
[2023-02-25] MEDS ORDERED: NA PHOS,M-B/NA PHOS,DI-BA 1 EA ENEMA RC STA (18:07)
--- NOTE | 2023-02-25 18:08 | NUR ---
OLIVIA RN NOTE PER DNP AMY HERNANDEZ OK TO REMOVE N G TUBE AND START PO FEEDING AND OK TO GIVE FLEET ENEMA FOUZIA ,ORDER CARRIED OUT
--- NOTE | 2023-02-25 18:43 | NUR ---
OLIVIA RN NOTE FLEET ENEMA GIVEN SMALL AMT OF HARD STOOL DEFECATED, KEEP CLEAN DRY , PUREE WICK PLACED 400 ML OF YELLOW COLOR URINE NOTED , ALSO ABLE TO EAT DINNER SELF ,ATE 100% OF DIET , STILL ON 1L NC NO SOB NOTED AT THIS TIE,SAFETY MEASURE IMPLEMENTED, CALL LIGHT WITHIHN REACH
--- NOTE | 2023-02-25 19:15 | NUR ---
RN OPENING NOTES RECEIVED PATIENT ON BED, AWAKE, A/O X 2-3. ON NASAL CANULA @ 1LPM SATING AT 94%. NO SOB NOTED. AFEBRILE. NO S/S OF DISTRESS NOTED. PATIENT WITH CARON MID LINE AND RIGHT WRIST #22 PERIPHERAL LINE FLUSHED WITH NS NO S/S OF INFILTRATION NOTED. ALL SAFETY MEASURE PROVIDED. BED IN LOWEST POSITION. LOCKED. CALL LIGHT WITH IN REACH
[2023-02-25 20:00] VITALS: BP 117/61
[2023-02-25] MEDS: BUDESONIDE RESPULE INH 0.5 MG/2 ML AMPUL.NEB IH SCH (20:16)
[2023-02-25] MEDS: ATORVASTATIN 40 MG TABLET PO SCH (21:42)
[2023-02-25] MEDS: QUETIAPINE FUMARATE 25 MG TABLET PO SCH (21:42)
[2023-02-25] MEDS: CARVEDILOL 6.25 MG TABLET PO SCH (21:43)
[2023-02-25] MEDS: *INSULIN REGULAR(HUMULIN R)HUM 100 UNIT/ML VIAL SQ PRN (22:11)
[2023-02-26] VITALS: BP 105/50
[2023-02-26] MEDS: VANCOMYCIN 0.75 GM in IV D5W 250 ML IV SCH ×2 (01:19→12:16)
[2023-02-26] MEDS: ALBUTEROL HALF STRENGTH 1.25 MG/3 ML VIAL.NEB NEB SCH ×4 (01:58→20:14)
[2023-02-26] MEDS: IPRATROPIUM NEB FS 0.5 MG/2.5 ML AMPUL.NEB NEB SCH ×4 (01:58→20:15)
[2023-02-26 04:00] VITALS: BP 100/59
[2023-02-26] MEDS: LACTULOSE 10 G/15 ML UDC (PYXIS) PO SCH ×3 (05:58→17:28)
[2023-02-26 06:00] LABS: BASOPHILS % (AUTO) 0.2 % (0.0-2.0); HEMATOCRIT 30 % (33-45); HEMOGLOBIN 10.3 g/dL (11.5-14.8); LYMPHOCYTES # (AUTO) 0.5 K/uL (0.8-4.8); LYMPHOCYTES % (AUTO) 5.7 % (20.0-44.0); MEAN CORPUSCULAR HGB CONC 34 g/dl (31.0-36.0); MEAN CORPUSCULAR VOLUME 92 fL (82-100); MONOCYTES # (AUTO) 0.3 K/uL (0.1-1.30); MONOCYTES % (AUTO) 3.6 % (2.0-12.0); NEUTROPHILS # (AUTO) 7.3 K/uL (1.8-8.9); NEUTROPHILS % (AUTO) 90.5 % (43.0-81.0); PLATELET COUNT (AUTO) 216 K/uL (150-450); WHITE BLOOD COUNT (AUTO) 8.1 K/uL (4.3-11.0)
[2023-02-26 06:17] LABS: CALCIUM, SERUM 8.8 mg/dL (8.5-10.1); CREATININE 0.8 mg/dL (0.6-1.3); PHOSPHORUS 3.7 mg/dL (2.5-4.9); POTASSIUM 3.9 mmol/L (3.5-5.1)
[2023-02-26] MEDS: CEFTRIAXONE 1 G in IV D5W 50 ML IV SCH (06:28)
--- NOTE | 2023-02-26 07:00 | NUR ---
RECEIVED HAND OFF REPORT FROM NIGHTSHIFT EBER SCHAEFFER. WILL CONTINUE PLAN OF CARE AND ANTICIPATE NEEDS.
[2023-02-26] MEDS: BLOOD SUGAR DIAGNOSTIC 1 EACH STRIP IN SCH ×4 (07:38→21:23)
[2023-02-26] MEDS: LEVOTHYROXINE SODIUM 75 MCG TABLET PO SCH (07:38)
[2023-02-26 08:00] VITALS: BP 109/57
--- NOTE | 2023-02-26 08:24 | NUR ---
WOUND CARE CONSULT: PT PRESENTS WITH SACRAL DEEP TISSUE INJURY, MULTIPLE AREAS OF SKIN DISCOLORATION, SKIN TEAR TO LEFT LOWER LEG WITH VERY FRAGILE SKIN, ALL PRESENT ON ADMISSION. DR COLÓN CALLED FOR DPM CONSULT. PT IS ON FIRST STEP [facility]. ALL SKIN PROTECTION RECOMMENDATIONS DISCUSSED WITH NURSING STAFF. IN AGREEMENT WITH PLAN OF CARE. Addendum: 02/26/23 at 0827 by MARINO STEINU Amended: Links added. Addendum: 02/26/23 at 0842 by MARINO STEINU PLEASE DISREGARD ABOVE WOUND CARE CONSULT NOTE WHICH WAS MADE IN ERROR.
[2023-02-26] MEDS: ARIPIPRAZOLE 5 MG TABLET PO SCH (08:31)
[2023-02-26] MEDS: ASPIRIN 81 MG TAB.CHEW PO SCH (08:31)
[2023-02-26] MEDS: AMIODARONE HCL 200 MG TABLET PO SCH ×2 (08:31→16:05)
--- NOTE | 2023-02-26 08:31 | NUR ---
WOUND CARE CONSULT: PT NOT TURNED FOR SKIN ASSESSMENT AT THIS TIME DUE TO PT REFUSAL. MULTIPLE AREAS OF SKIN DISCOLORATION NOTED IN ADMISSION PHOTOS. DISCUSSED SKIN PROTECTION WITH NURSING STAFF. WILL SEE PT FOR SKIN ASSESSMENT PT CONDITION PERMITS. IN AGREEMENT WITH PLAN OF CARE. Addendum: 02/26/23 at 0833 by MARINO TONG WNDNU Amended: Links added.
[2023-02-26] MEDS: DULOXETINE HCL 30 MG CAPSULE.DR PO SCH (08:32)
[2023-02-26] MEDS: FAMOTIDINE (20 MG) 20 MG TABLET PO SCH ×2 (08:32→16:05)
[2023-02-26] MEDS: CARVEDILOL 6.25 MG TABLET PO SCH ×2 (08:32→21:23)
[2023-02-26] MEDS: DILTIAZEM HCL CD 120 MG PO SCH (08:32)
[2023-02-26] MEDS: buPROPion SR 100 MG TABLET.ER PO SCH ×2 (08:32→16:04)
[2023-02-26] MEDS: DIGOXIN 0.125 MG TABLET PO SCH (08:33)
[2023-02-26] MEDS: APIXABAN 5 MG TABLET PO SCH ×2 (08:33→16:05)
[2023-02-26] MEDS: methylPREDNISolone SOD SUCC 40 MG/ML VIAL IV SCH ×2 (08:33→16:06)
[2023-02-26] MEDS: BUDESONIDE RESPULE INH 0.5 MG/2 ML AMPUL.NEB IH SCH ×2 (08:35→20:14)
[2023-02-26] MEDS: INSULIN REGULAR, HUMAN 100 UNIT/ML 3 ML VIAL SQ PRN ×2 (08:38→17:26)
[2023-02-26] MEDS: SORBITOL SOLUTION 70% 30 ML SOLUTION PO SCH ×2 (08:43→16:06)
[2023-02-26 09:03] LABS: ABG BASE EXCESS 5.4 mmol/L; ABG OXYGEN SATURATION 95.4 % (92.0-98.5); ABG PCO2 48.9 mmHg (35.0-45.0); ABG PH 7.419 (7.350-7.450); ABG PO2 79.2 mmHg (75.0-100.0); AaDO2 33.7 mmHg; COHb 0.7 % (0.5-1.5); MetHb 0.2 % (0.0-1.5); O2Hb 94.5 % (94.0-97.0); SITE, ABG Left Radial; VENT MODE, BG 1 LPM NC
--- NOTE | 2023-02-26 10:26 | NUR ---
PATIENT REFUSING PHYSICAL THERAPY EVALUATION. PATIENT REPORTS FEELING "SHORT OF BREATH". NO ABNORMALITIES NOTED IN ARTERIAL BLOOD GAS FROM THIS MORNING, OXYGEN SATURATION AT 95% ON 1 LITER SUPPLEMENTAL OXYGEN VIA NASAL CANULA. PATIENT HAS HISTORY OF ANXIETY. WILL CONTINUE TO ASSESS PATIENT AND MONITOR FOR CHANGES.
[2023-02-26 12:00] VITALS: BP 130/70
[2023-02-26] MEDS ORDERED: MENTHOL/CETYLPYRD (CEPACOL) 1 LOZ LOZENGE PO PRN (14:00)
[2023-02-26 16:00] VITALS: BP 123/54
--- NOTE | 2023-02-26 17:15 | NUR ---
Patient had one large bowel movement. unable to measure.
[2023-02-26] MEDS: GLUCERNA SHAKE 237 ML CAN PO SCH (17:26)
--- NOTE | 2023-02-26 18:47 | NUR ---
RN CLOSING NOTES PATIENT REMAINS IN ROOM ON 1 LITER OXYGEN VIA NASAL CANULA. ATTACHED TO TELE MONITOR, READING A-FIB. PUREWICK ATTACHED DRAINING OUTPUT. IV ACCESS MAINTAINED ON RIGHT UPPER ARM MIDLINE. SAFETY MEASURES IMPLEMENTED, WILL ENDORSE TO NIGHTSHIFT RN FOR CONTINUATION OF CARE.
[2023-02-26 20:00] VITALS: BP 110/62
[2023-02-26] MEDS: QUETIAPINE FUMARATE 25 MG TABLET PO SCH (21:23)
[2023-02-26] MEDS: ATORVASTATIN 40 MG TABLET PO SCH (21:23)
[2023-02-26] MEDS: *INSULIN REGULAR(HUMULIN R)HUM 100 UNIT/ML VIAL SQ PRN (21:28)
[2023-02-27] VITALS: BP 97/71
[2023-02-27] MEDS: VANCOMYCIN 0.75 GM in IV D5W 250 ML IV SCH ×2 (02:20→12:17)
[2023-02-27] MEDS: ALBUTEROL HALF STRENGTH 1.25 MG/3 ML VIAL.NEB NEB SCH ×4 (02:30→19:50)
[2023-02-27] MEDS: IPRATROPIUM NEB FS 0.5 MG/2.5 ML AMPUL.NEB NEB SCH ×4 (02:30→19:51)
[2023-02-27 04:00] VITALS: BP 111/85
[2023-02-27 05:53] LABS: BASOPHILS % (AUTO) 0.1 % (0.0-2.0); HEMATOCRIT 32 % (33-45); HEMOGLOBIN 10.5 g/dL (11.5-14.8); LYMPHOCYTES # (AUTO) 0.5 K/uL (0.8-4.8); LYMPHOCYTES % (AUTO) 4.2 % (20.0-44.0); MEAN CORPUSCULAR HGB CONC 33 g/dl (31.0-36.0); MEAN CORPUSCULAR VOLUME 93 fL (82-100); MONOCYTES # (AUTO) 0.5 K/uL (0.1-1.30); NEUTROPHILS # (AUTO) 11.5 K/uL (1.8-8.9); NEUTROPHILS % (AUTO) 91.7 % (43.0-81.0); PLATELET COUNT (AUTO) 223 K/uL (150-450); RED BLOOD CELL COUNT(AUTO) 3.43 MIL/uL (4.0-5.2); WHITE BLOOD COUNT (AUTO) 12.5 K/uL (4.3-11.0)
[2023-02-27 06:28] LABS: CALCIUM, SERUM 8.9 mg/dL (8.5-10.1); CARBON DIOXIDE 33 mmol/L (21-32); CHLORIDE 95 mmol/L (98-107); CREATININE 0.8 mg/dL (0.6-1.3); GLUCOSE 257 mg/dL (74-106); POTASSIUM 3.7 mmol/L (3.5-5.1); SODIUM SERUM 134 mmol/L (136-145); UREA NITROGEN, BLOOD 12 mg/dL (7-18)
--- NOTE | 2023-02-27 06:31 | NUR ---
RN CLOSING NOTE A/OX2-3. 1L nc. NOC BIPAP FROM 0000 - 0430. CONTROLLED AFIB ON THE MONITOR. BanyanCK 1000ML OUT. BMX1. IV ABX GIVEN ORDERED. PLAN FOR KUB.
[2023-02-27] MEDS: CEFTRIAXONE 1 G in IV D5W 50 ML IV SCH (06:54)
--- NOTE | 2023-02-27 07:15 | NUR ---
FINANCIAL AID ADVISOR OPENING NOTES Received pt awake in bed AOX4. No complaints of pain or discomfort at this time. Pt is currently on 1L NC and tolerating it well. IV access on CARON midline patent and intact. Siderails up at all times x4. Call light within reach. Will continue to monitor.
[2023-02-27] MEDS: BUDESONIDE RESPULE INH 0.5 MG/2 ML AMPUL.NEB IH SCH ×2 (07:51→20:03)
[2023-02-27 08:00] VITALS: BP 114/66
[2023-02-27] MEDS: GLUCERNA SHAKE 237 ML CAN PO SCH ×2 (08:00→17:29)
[2023-02-27] MEDS: BLOOD SUGAR DIAGNOSTIC 1 EACH STRIP IN SCH ×4 (09:38→21:38)
[2023-02-27] MEDS: ARIPIPRAZOLE 5 MG TABLET PO SCH (09:44)
[2023-02-27] MEDS: LEVOTHYROXINE SODIUM 75 MCG TABLET PO SCH (09:45)
[2023-02-27] MEDS: CARVEDILOL 6.25 MG TABLET PO SCH ×2 (09:45→21:01)
[2023-02-27] MEDS: buPROPion SR 100 MG TABLET.ER PO SCH ×2 (09:45→17:22)
[2023-02-27] MEDS: DIGOXIN 0.125 MG TABLET PO SCH (09:45)
[2023-02-27] MEDS: AMIODARONE HCL 200 MG TABLET PO SCH ×2 (09:45→17:22)
--- NOTE | 2023-02-27 09:45 | NUR ---
WOUND CARE CONSULT: PT PRESENTS WITH RASH TO GROIN FOLDS, PERINEUM AND BUTTOCKS, PRESENT ON ADMISSION. RECOMMENDATIONS MADE FOR SKIN PROTECTION. DISCUSSED WITH NURSING STAFF. PT IS USING PURE WICK SYSTEM FOR URINARY INCONTINENCE. MD IN AGREEMENT WITH PLAN OF CARE.
[2023-02-27] MEDS: ASPIRIN 81 MG TAB.CHEW PO SCH (09:46)
[2023-02-27] MEDS: DULOXETINE HCL 30 MG CAPSULE.DR PO SCH (09:46)
[2023-02-27] MEDS: DILTIAZEM HCL CD 120 MG PO SCH (09:46)
[2023-02-27] MEDS: FAMOTIDINE (20 MG) 20 MG TABLET PO SCH ×2 (09:46→17:22)
[2023-02-27] MEDS: methylPREDNISolone SOD SUCC 40 MG/ML VIAL IV SCH (09:46)
[2023-02-27] MEDS: INSULIN REGULAR, HUMAN 100 UNIT/ML 3 ML VIAL SQ PRN ×3 (09:48→17:26)
[2023-02-27] MEDS: APIXABAN 5 MG TABLET PO SCH ×2 (09:50→17:24)
[2023-02-27] MEDS: SORBITOL SOLUTION 70% 30 ML SOLUTION PO SCH ×2 (09:57→17:21)
[2023-02-27 12:00] VITALS: BP 112/59
[2023-02-27 16:00] VITALS: BP 115/60
[2023-02-27] MEDS: CLOTRIMAZOLE 1% 15 GM TUBE TP SCH (17:21)
--- NOTE | 2023-02-27 18:41 | NUR ---
LEPIDOPTERIST CLOSING NOTES All due meds and tx gien as ordered. Pt tolerated everything well. All needs attended to. Call light within reach. Will endorse to oncoming nurse.
--- NOTE | 2023-02-27 19:15 | NUR ---
RN OPENING NOTES PATIENT IN BED, AWAKE. ON 1 LITER OXYGEN VIA NASAL CANULA. ATTACHED TO TELE MONITOR, READING CONTROLLED A-FIB. PUREWICK ATTACHED AND DRAINING OUTPUT. IV ACCESS MAINTAINED ON RIGHT UPPER ARM MIDLINE, FLUSHED, PATENT AND INTACT. SAFETY MEASURES IMPLEMENTED, BED LOCKED IN THE LOWEST POSITION, SR UP X2, CALL LIGHT AND BELONGINGS WITHIN REACH, BED ALARM IS ON. WILL CONTINUE TO MONITOR.
[2023-02-27 20:00] VITALS: BP 130/77
[2023-02-27] MEDS: QUETIAPINE FUMARATE 25 MG TABLET PO SCH (21:00)
[2023-02-27] MEDS: ATORVASTATIN 40 MG TABLET PO SCH (21:00)
[2023-02-27] MEDS: ACETAMINOPHEN 325 MG TABLET PO PRN (21:25)
--- NOTE | 2023-02-27 21:25 | NUR ---
BOTTOM PAINTER NOTE PATIENT REPORTED PAIN IN HER NECK AT 310. PRN TYLENOL 650 MG ADMINISTERED. WILL CONTINUE TO MONITOR.
[2023-02-27] MEDS: *INSULIN REGULAR(HUMULIN R)HUM 100 UNIT/ML VIAL SQ PRN (21:42)
--- NOTE | 2023-02-27 23:30 | NUR ---
Pt does not want to be placed on BIPAP until 0030. Risk and benefits discussed with Pt. RN aware.
[2023-02-28] VITALS: BP 124/70
--- NOTE | 2023-02-28 00:30 | NUR ---
Pt placed on NOC BIPAP per MD orders. RN aware
[2023-02-28] MEDS: VANCOMYCIN 0.75 GM in IV D5W 250 ML IV SCH ×2 (01:00→12:17)
[2023-02-28] MEDS: IPRATROPIUM NEB FS 0.5 MG/2.5 ML AMPUL.NEB NEB SCH ×4 (01:53→20:32)
[2023-02-28] MEDS: ALBUTEROL HALF STRENGTH 1.25 MG/3 ML VIAL.NEB NEB SCH ×4 (01:53→20:32)
--- NOTE | 2023-02-28 02:05 | NUR ---
Pt removed BIPAP mask. Pt refusing to go back on BIPAP at this time. Pt placed on nasal cannula 1LPM O2.
[2023-02-28 04:00] VITALS: BP 109/53
[2023-02-28 05:57] LABS: CALCIUM, SERUM 8.9 mg/dL (8.5-10.1); CREATININE 0.8 mg/dL (0.6-1.3); POTASSIUM 4.6 mmol/L (3.5-5.1)
[2023-02-28] MEDS: CEFTRIAXONE 1 G in IV D5W 50 ML IV SCH (06:44)
--- NOTE | 2023-02-28 06:50 | NUR ---
CALENDER TENDER OPENING NOTES PATIENT IN BED, AWAKE. ALERT AND ORIENTED 2-3. ON 1 LITER OXYGEN VIA NASAL CANULA. ATTACHED TO TELE MONITOR, READING CONTROLLED A-FIB, HR 82. PUREWICK ATTACHED AND DRAINING OUTPUT. IV ACCESS AT RIGHT UPPER ARM MIDLINE, FLUSHED, PATENT AND INTACT. SAFETY MEASURES IMPLEMENTED, BED LOCKED IN THE LOWEST POSITION, SR UP X2, CALL LIGHT AND BELONGINGS WITHIN REACH, BED ALARM IS ON. WILL BE ENDORSED TO THE NEXT SHIFT FOR JAYJAY
--- NOTE | 2023-02-28 07:35 | NUR ---
AIRPLANE WOODWORKER OPENING NOTES received PATIENT IN BED, AWAKE. ALERT AND ORIENTED 2-3. ON 1 LITER OXYGEN VIA NASAL CANULA. ATTACHED TO TELE MONITOR, READING CONTROLLED A-FIB, at this time.. PUREWICK ATTACHED AND DRAINING yellow color OUTPUT. IV ACCESS AT RIGHT UPPER ARM MIDLINE, FLUSHED, PATENT AND INTACT. SAFETY MEASURES IMPLEMENTED, BED LOCKED IN THE LOWEST POSITION, SR UP X2, CALL LIGHT AND BELONGINGS WITHIN REACH, BED ALARM IS ON.
[2023-02-28 08:00] VITALS: BP 129/65
[2023-02-28] MEDS: BUDESONIDE RESPULE INH 0.5 MG/2 ML AMPUL.NEB IH SCH ×2 (08:07→20:32)
[2023-02-28] MEDS: BLOOD SUGAR DIAGNOSTIC 1 EACH STRIP IN SCH ×4 (08:12→21:30)
[2023-02-28] MEDS: GLUCERNA SHAKE 237 ML CAN PO SCH ×2 (08:20→17:50)
[2023-02-28] MEDS: buPROPion SR 100 MG TABLET.ER PO SCH ×2 (08:20→16:19)
[2023-02-28] MEDS: LEVOTHYROXINE SODIUM 75 MCG TABLET PO SCH (08:20)
[2023-02-28] MEDS: FAMOTIDINE (20 MG) 20 MG TABLET PO SCH ×2 (08:20→16:19)
[2023-02-28] MEDS: ARIPIPRAZOLE 5 MG TABLET PO SCH (08:20)
[2023-02-28] MEDS: DULOXETINE HCL 30 MG CAPSULE.DR PO SCH (08:21)
[2023-02-28] MEDS: ASPIRIN 81 MG TAB.CHEW PO SCH (08:21)
[2023-02-28] MEDS: APIXABAN 5 MG TABLET PO SCH ×2 (08:25→16:21)
[2023-02-28] MEDS: INSULIN REGULAR, HUMAN 100 UNIT/ML 3 ML VIAL SQ PRN ×3 (08:26→17:30)
[2023-02-28] MEDS ORDERED: methylPREDNISolone SOD SUCC 40 MG/ML VIAL IV SCH (09:00)
[2023-02-28] MEDS: DILTIAZEM HCL CD 120 MG PO SCH (09:14)
[2023-02-28] MEDS: DIGOXIN 0.125 MG TABLET PO SCH (09:14)
[2023-02-28] MEDS: CLOTRIMAZOLE 1% 15 GM TUBE TP SCH ×2 (10:04→17:50)
[2023-02-28] MEDS: AMIODARONE HCL 200 MG TABLET PO SCH ×2 (10:04→16:20)
[2023-02-28] MEDS: CARVEDILOL 6.25 MG TABLET PO SCH ×2 (10:05→21:17)
[2023-02-28 12:00] VITALS: BP_SYST 115; BP_SYST 127; BP_DIAS 75; BP_DIAS 78
[2023-02-28 16:00] VITALS: BP 115/75
--- NOTE | 2023-02-28 19:25 | NUR ---
telephone interceptor operator closing note PATIENT IN BED, AWAKE. ALERT AND ORIENTED 2-3. ON 1 LITER OXYGEN VIA NASAL CANULA TOLERATING AT 96%.ATTACHED TO TELE MONITOR, READING CONTROLLED A-FIB, at this time.. PUREWICK ATTACHED AND DRAINING yellow color OUTPUT. IV ACCESS AT RIGHT UPPER ARM MIDLINE, FLUSHED, PATENT AND INTACT. SAFETY MEASURES IMPLEMENTED, BED LOCKED IN THE LOWEST POSITION, SR UP X2, CALL LIGHT AND BELONGINGS WITHIN REACH, BED ALARM IS ON.ENDORSED TO RADIOLOGY SPECIAL PROCEDURE TECH RN FOR CONTUITY OF CARE
--- NOTE | 2023-02-28 19:30 | NUR ---
MEDICAL ART THERAPIST OPENING NOTE PATIENT IN BED, AWAKE. ALERT AND ORIENTED 2-3. ON 1 LITER OXYGEN VIA NASAL CANNULA, NO S/S OF RESPIRATORY DISTRESS NOTED. ATTACHED TO TELE MONITOR, READING CONTROLLED A-FIB, HR 84. PUREWICK ATTACHED AND DRAINING YELLOW COLOR OUTPUT. IV ACCESS AT RIGHT UPPER ARM MIDLINE, FLUSHED, PATENT AND INTACT. SAFETY MEASURES IMPLEMENTED, BED LOCKED IN THE LOWEST POSITION, SR UP X2, CALL LIGHT AND BELONGINGS WITHIN REACH, BED ALARM IS ON. WILL CONTINUE TO MONITOR.
[2023-02-28 20:00] VITALS: BP 131/63
--- NOTE | 2023-02-28 21:15 | NUR ---
PRIOR AUTHORIZATION TECHNICIAN NOTE PT ON BIPAP, RATE 16, OXYGEN 30%, IPAP 15, EPAP 5. TOLERATING WELL. PT IS DROWSY, BUT EASILY AROUSABLE. Addendum: 03/01/23 at 0410 by TAMMY IBARRA RN CORRECT TIME 22:36
[2023-02-28] MEDS: QUETIAPINE FUMARATE 25 MG TABLET PO SCH (21:16)
[2023-02-28] MEDS: ATORVASTATIN 40 MG TABLET PO SCH (21:17)
[2023-02-28] MEDS: ACETAMINOPHEN 325 MG TABLET PO PRN (21:31)
--- NOTE | 2023-02-28 21:42 | NUR ---
JET BLADE POLISHER NOTE PATIENT REPORTS ABDOMINAL DISCOMFORT AND STRAINING. PATIENT DIDN'T HAVE BM FOR 2 DAYS. MIRALAX WAS ADMINISTERED. WILL CONTINUE TO MONITOR BOWEL MOVEMENT PATTERN.
[2023-02-28] MEDS: *INSULIN REGULAR(HUMULIN R)HUM 100 UNIT/ML VIAL SQ PRN (21:43)
--- NOTE | 2023-02-28 22:36 | NUR ---
RCVD PT ON 2L NC , PLACED ON NOC BIPAP 15/5,RATE 16, FIO2 30%. NO RESPIRATORY DISTRESS NOTED AT THIS TIME,. BIPAP PLUGGED INTO RED OUTLET. ALARMS ON AND AUDIBLE. WILL CONTINUE TO MONITOR T/O SHIFT. Addendum: 03/01/23 at 0535 by NICK KINNEY RT RCVD 1L NC
[2023-03-01] VITALS: BP 111/74
[2023-03-01] MEDS: VANCOMYCIN 0.75 GM in IV D5W 250 ML IV SCH ×2 (00:29→12:39)
[2023-03-01] MEDS: ALBUTEROL HALF STRENGTH 1.25 MG/3 ML VIAL.NEB NEB SCH ×3 (01:05→13:34)
[2023-03-01] MEDS: IPRATROPIUM NEB FS 0.5 MG/2.5 ML AMPUL.NEB NEB SCH ×3 (01:05→13:35)
[2023-03-01 04:00] VITALS: BP 115/58
--- NOTE | 2023-03-01 04:10 | NUR ---
SHIRT CLEANER NOTE PATIENT TAKEN OFF NOC BIPAP, PUT ON 2 LITTER OF SUPPLEMENTAL OXYGEN VIA NASAL CANNULA. TOLERATING WELL, WILL CONTINUE TO MONITOR Addendum: 03/01/23 at 0532 by TAMMY IBARRA RN SHIRT CLEANER NOTE PATIENT TAKEN OFF NOC BIPAP, PUT ON 1 LITTER OF SUPPLEMENTAL OXYGEN VIA NASAL CANNULA. TOLERATING WELL, WILL CONTINUE TO MONITOR
--- NOTE | 2023-03-01 04:15 | NUR ---
OFF BIPAP PER PT REQUEST. PLACED ON 2L NC, RN TAMMY AWARE. NO RESPIRATORY DISTRESS NOTED AT THIS TIME. WILL CONTINUE TO MONITOR T/O SHIFT.
[2023-03-01] MEDS: CEFTRIAXONE 1 G in IV D5W 50 ML IV SCH (06:02)
[2023-03-01 06:06] LABS: CALCIUM, SERUM 9.2 mg/dL (8.5-10.1); CREATININE 0.8 mg/dL (0.6-1.3); POTASSIUM 4.4 mmol/L (3.5-5.1)
--- NOTE | 2023-03-01 06:34 | NUR ---
SUPERVISOR COLOR PASTE MIXING OPENING NOTE PATIENT IN BED, SLEEPING. ALERT AND ORIENTED 2-3. ON 1 LITER OXYGEN VIA NASAL CANNULA, NO S/S OF RESPIRATORY DISTRESS NOTED. ATTACHED TO TELE MONITOR, READING CONTROLLED A-FIB, HR 81. PUREWICK ATTACHED AND DRAINING YELLOW COLOR OUTPUT. IV ACCESS AT RIGHT UPPER ARM MIDLINE, FLUSHED, PATENT AND INTACT. SAFETY MEASURES IMPLEMENTED, BED LOCKED IN THE LOWEST POSITION, SR UP X2, CALL LIGHT AND BELONGINGS WITHIN REACH, BED ALARM IS ON. WILL ENDORSE TO THE NEXT SHIFT FOR JAYJAY. Addendum: 03/01/23 at 0636 by TAMMY IBARRA RN SUPERVISOR COLOR PASTE MIXING CLOSING NOTE PATIENT IN BED, SLEEPING. ALERT AND ORIENTED 2-3. ON 1 LITER OXYGEN VIA NASAL CANNULA, NO S/S OF RESPIRATORY DISTRESS NOTED. ATTACHED TO TELE MONITOR, READING CONTROLLED A-FIB, HR 81. PUREWICK ATTACHED AND DRAINING YELLOW COLOR OUTPUT. IV ACCESS AT RIGHT UPPER ARM MIDLINE, FLUSHED, PATENT AND INTACT. SAFETY MEASURES IMPLEMENTED, BED LOCKED IN THE LOWEST POSITION, SR UP X2, CALL LIGHT AND BELONGINGS WITHIN REACH, BED ALARM IS ON. WILL ENDORSE TO THE NEXT SHIFT FOR JAYJAY.
--- NOTE | 2023-03-01 07:30 | NUR ---
WHIPPED TOPPING SUPERVISOR OPENING NOTES received PATIENT IN BED, AWAKE. ALERT AND ORIENTED 2-3. ON 1 LITER OXYGEN VIA NASAL CANULA. ATTACHED TO TELE MONITOR, READING CONTROLLED A-FIB, at this time.. PUREWICK ATTACHED AND DRAINING yellow color OUTPUT. IV ACCESS AT RIGHT UPPER ARM MIDLINE, FLUSHED, PATENT AND INTACT. SAFETY MEASURES IMPLEMENTED, BED LOCKED IN THE LOWEST POSITION, SR UP X2, CALL LIGHT AND BELONGINGS WITHIN REACH, BED ALARM ON. Addendum: 03/01/23 at 0740 by YOLIE TODD RN CONTROLLED AFIB 82 ON TELE MONITOR AT THIS TIME
[2023-03-01] MEDS: BLOOD SUGAR DIAGNOSTIC 1 EACH STRIP IN SCH ×2 (07:35→11:44)
[2023-03-01] MEDS: BUDESONIDE RESPULE INH 0.5 MG/2 ML AMPUL.NEB IH SCH (07:49)
[2023-03-01 08:00] VITALS: BP 128/63
[2023-03-01] MEDS: ARIPIPRAZOLE 5 MG TABLET PO SCH (08:05)
[2023-03-01] MEDS: LEVOTHYROXINE SODIUM 75 MCG TABLET PO SCH (08:05)
[2023-03-01] MEDS: ASPIRIN 81 MG TAB.CHEW PO SCH (08:05)
[2023-03-01] MEDS: DULOXETINE HCL 30 MG CAPSULE.DR PO SCH (08:06)
[2023-03-01] MEDS: buPROPion SR 100 MG TABLET.ER PO SCH (08:06)
[2023-03-01] MEDS: FAMOTIDINE (20 MG) 20 MG TABLET PO SCH ×2 (08:06→10:11)
[2023-03-01] MEDS: INSULIN REGULAR, HUMAN 100 UNIT/ML 3 ML VIAL SQ PRN ×2 (08:08→12:41)
[2023-03-01] MEDS: APIXABAN 5 MG TABLET PO SCH (08:11)
[2023-03-01] MEDS: AMIODARONE HCL 200 MG TABLET PO SCH (08:12)
[2023-03-01] MEDS: CARVEDILOL 6.25 MG TABLET PO SCH (08:14)
--- NOTE | 2023-03-01 08:19 | NUR ---
RN NOTE FAMOTIDINE MEDICATION FELL ON FLOOR. NOT ADMINSTERED. TAKE 1 TABLET
[2023-03-01] MEDS: GLUCERNA SHAKE 237 ML CAN PO SCH (08:20)
[2023-03-01] MEDS: CLOTRIMAZOLE 1% 15 GM TUBE TP SCH (08:21)
[2023-03-01] MEDS ORDERED: predniSONE 20 MG TABLET PO SCH (09:00)
[2023-03-01] MEDS: DIGOXIN 0.125 MG TABLET PO SCH (10:11)
[2023-03-01] MEDS: DILTIAZEM HCL CD 120 MG PO SCH (10:16)
[2023-03-01 12:00] VITALS: BP 117/70
--- NOTE | 2023-03-01 14:57 | NUR ---
RN NOTE REPORT GIVEN TO NASIR AT [facility] [phone]
[2023-03-01 16:00] VITALS: BP 120/54
--- NOTE | 2023-03-01 17:45 | NUR ---
DIGITAL ACCOUNT EXECUTIVE NOTE PT LEFT IN STABLE CONDITION. REMOVED TELE MONITOR BOX.KEPT MIDLINE DUE TO PT RECEIVING IV ANTIBOTICS FOR FEW MORE DAYS. PT CAME WITH NO BELONGINGS. CHECKED CABINET IN ROOM, NO BELONGINGS. WENT OVER DISCHARGE INSTRUCTIONS, HEALTH TEACHINGS, MEDICATIONS, PT VERBALIZED UNDERSTANIDNG AND AGREED. PICKED UP BY AMBULANCE AND TAKEN TO [facility]
[2023-03-02] MEDS ORDERED: VANCOMYCIN 1.25 GM in IV D5W 250 ML IV SCH (13:00)
== END 2023-03-01 17:25 | DRG 871 ==
LOC: ER 05:04 → TRANSITION 08:37 → TELE-TD 10:54 → TELE1 02-26 15:58
PROVIDERS: ADMIT Nurse Practitioner Acute Care; ATTEND Internal Medicine
PROC: 5A09357 Assistance with Respiratory Ventilation, Less than 24 Consecutive Hours, Continuous Positive Airway Pressure (ICD-10-PCS; principal; 2023-02-25)
PROC: 05HY33Z Insertion of Infusion Device into Upper Vein, Percutaneous Approach (ICD-10-PCS; 2023-02-25)
DX: A41.9 Sepsis, unspecified organism (principal); I50.31 Acute diastolic (congestive) heart failure; J15.9 Unspecified bacterial pneumonia; J96.21 Acute and chronic respiratory failure with hypoxia; J96.22 Acute and chronic respiratory failure with hypercapnia; J44.1 Chronic obstructive pulmonary disease with (acute) exacerbation; D68.69 Other thrombophilia; E87.1 Hypo-osmolality and hyponatremia; J44.0 Chronic obstructive pulmonary disease with (acute) lower respiratory infection; N39.0 Urinary tract infection, site not specified; J98.11 Atelectasis; E11.65 Type 2 diabetes mellitus with hyperglycemia; E78.5 Hyperlipidemia, unspecified; F32.A Depression, unspecified; F41.9 Anxiety disorder, unspecified; G20 Parkinson's disease; I48.0 Paroxysmal atrial fibrillation; K21.9 Gastro-esophageal reflux disease without esophagitis; Z79.01 Long term (current) use of anticoagulants; Z79.4 Long term (current) use of insulin; Z87.891 Personal history of nicotine dependence; Z20.822 Contact with and (suspected) exposure to COVID-19; E03.9 Hypothyroidism, unspecified; K59.00 Constipation, unspecified; K42.9 Umbilical hernia without obstruction or gangrene; K59.09 Other constipation; K31.89 Other diseases of stomach and duodenum; I11.0 Hypertensive heart disease with heart failure; F99 Mental disorder, not otherwise specified
CPT/HCPCS: 36415; 36600; 71045-TC; 74018; 80048-TC; 80061-TC; 80076-TC; 80202-TC; 81001; 82803-TC; 82962-TC; 83605-TC; 83735-TC; 83880; 84100-TC; 84443-TC; 84484-TC; 85025-TC; 85730-TC; 87040-TC; 87081-TC; 87086-TC; 94660; 94799-TC; 97110-TC; 97116-TC; 97530-TC; A4223; C9803; G0378; J0456; J0696; J1815; J2920; J3370; J7030; J7050; J7060; Q9967